=== PATIENT | male | born 1960 ===

== ENCOUNTER → 2020-02-16 14:34 | Outpatient (BNVA) | payer OTHER, SELFPAY | PROVIDERS: Visit Provider Nurse Practitioner Family | DX: Z01.818 Encounter for other preprocedural examination (principal); R19.7 Diarrhea, unspecified | CPT/HCPCS: 99202 ==

== ENCOUNTER → 2020-03-15 10:26 | Outpatient (BNVA) | payer OTHER, SELFPAY | PROVIDERS: Visit Provider Nurse Practitioner Family | DX: Z76.89 Persons encountering health services in other specified circumstances (principal) ==

== ENCOUNTER 2020-03-29 08:46 | Outpatient (REF) | payer OTHER, SELFPAY ==
[2020-03-29 09:50] LABS: MANUAL DIFF FLAG NO
[2020-03-29 10:23] LABS: Basophils Percent Auto 0.7 % (0-2); Eosinophils Absolute Auto 0.2 X10*3/uL (0.0-0.4); Eosinophils Percent Auto 3.5 % (0-4); Hematocrit 40.8 % (42-52); Hemoglobin 14.4 g/dl (14.0-18.0); Imm Gran Abs Auto 0.01 X10*3/uL (0.00-0.03); Imm Gran Pct Auto 0.2 % (0.0-0.4); Lymphocytes Absolute Auto 2.4 X10*3/uL (1.2-4.9); Lymphocytes Percent Auto 40.2 % (20-40); Mean Corpuscular HGB Conc 35.3 g/dl (31.0-36.0); Mean Corpuscular Volume 90.7 fL (80-98); Mean Platelet Volume 10.9 fL (9.4-12.4); Monocytes Absolute Auto 0.5 X10*3/uL (0.1-1.2); Monocytes Percent Auto 7.7 % (2-11); Neutrophils Absolute Auto 2.9 X10*3/uL (2.0-8.3); Neutrophils Percent Auto 47.7 % (45-73); Platelet Count 160 X10*3/uL (160-400); Red Cell Distribution Width 11.7 % (11.0-16.0)
[2020-03-29 11:01] LABS: Alanine Aminotransferase 27 U/L (0-40); Albumin Level 4.1 g/dL (3.5-5.0); Alkaline Phosphatase 45 U/L (39-117); Anion Gap 14 (12-20); Aspartate Amino Transferase 21 U/L (5-37); Bilirubin Direct 0.4 mg/dL (0.0-0.5); Bilirubin Total 0.7 mg/dL (0.0-1.0); Blood Urea Nitrogen 22 mg/dL (9-16); Calcium 8.8 mg/dL (8.4-10.2); Carbon Dioxide 24 mmol/L (22-29); Chloride 104 mmol/L (96-108); Cholesterol 98 mg/dL; Estimated Glomerular Filt Rate > 60; Glucose Random 124 mg/dL (60-115); HDL Cholesterol 45 mg/dL; LDL Cholesterol Calculated 38 mg/dl; Potassium 4.2 mmol/l (3.3-5.1); Sodium 138 mmol/L (135-145); Total Protein 6.6 g/dL (6.5-8.0); Triglycerides 75 mg/dL
[2020-03-29 11:31] LABS: Creatinine Urine 106.47 mg/dL
[2020-03-29 11:38] LABS: Estimated Average Glucose 209 mg/dL; Hemoglobin A1c % 8.9 %
== END 2020-03-29 08:47 | disposition home or self-care (01) ==
LOC: HO.LAB 08:46
PROVIDERS: Visit Provider Pediatrics
DX: L11.9 Acantholytic disorder, unspecified (principal); I10 Essential (primary) hypertension; K21.9 Gastro-esophageal reflux disease without esophagitis
CPT/HCPCS: 36415; 80053; 80061; 80076; 82043; 82248; 82550; 83036; 85025

== ENCOUNTER → 2020-04-17 14:14 | Outpatient (BNVA) | payer OTHER, SELFPAY | PROVIDERS: PCP Pediatrics; Visit Provider Nurse Practitioner Family | DX: Z13.89 Encounter for screening for other disorder (principal) | CPT/HCPCS: 99212 ==

== ENCOUNTER 2020-05-02 08:14 | Day surgery (SDC) | payer OTHER, SELFPAY ==
--- NOTE | 2020-05-01 08:26 | P.CONAN_ITS ---
Documented by User: Meera Arrington 05/01/20 08:27 HPI - Anesthesia Eval Consult details Narrative: 60yo M for Colonoscopy PMFSH Past Medical History Medical History Diabetes mellitus HTN (hypertension) Hypercholesteremia Family History Family History Father Family history of high blood pressure Mother History of high blood pressure Surgical History Surgical History History of colonoscopy Social History Social History Alcohol intake: current Alcohol intake frequency: does not drink Smoking Status: Never smoker Use of substances other than those prescribed or required for medical reasons: No Advance Directives: No Advance Directives Information Provided: Yes Meds Allergies Allergy/AdvReac Type Severity Reaction Status Date / Time No Known Allergies Allergy Verified 04/27/20 12:57 Home Medications Medication Instructions Recorded Confirmed Type atorvastatin 80 mg tablet 80 mg PO DAILY 02/16/20 04/27/20 History glyburide 5 mg tablet 5 mg PO DAILY 02/16/20 04/27/20 History lisinopril 10 mg tablet 10 mg PO DAILY 02/16/20 04/27/20 History metformin 1,000 mg tablet 1,000 mg PO BID 02/16/20 04/27/20 History Exam Exam Date and Time: May 01, 2020825 Assessment and Plan Assessment Anesthesia Assessment: Chart Reviewed Documented by User: Luther Morrissey 05/02/20 08:50 [facility] Past Medical History Medical History Diabetes mellitus HTN (hypertension) Hypercholesteremia Family History Family History Father Family history of high blood pressure Mother History of high blood pressure Surgical History Surgical History History of colonoscopy Social History Social History Alcohol intake: current Alcohol intake frequency: does not drink Smoking Status: Never smoker Use of substances other than those prescribed or required for medical reasons: No Advance Directives: No Advance Directives Information Provided: Yes Meds Allergies Allergy/AdvReac Type Severity Reaction Status Date / Time No Known Allergies Allergy Verified 04/27/20 12:57 Home Medications Medication Instructions Recorded Confirmed Type atorvastatin 80 mg tablet 80 mg PO DAILY 02/16/20 04/27/20 History glyburide 5 mg tablet 5 mg PO DAILY 02/16/20 04/27/20 History lisinopril 10 mg tablet 10 mg PO DAILY 02/16/20 04/27/20 History metformin 1,000 mg tablet 1,000 mg PO BID 02/16/20 04/27/20 History Exam Airway Mallampati Class: II TM Dist: >3cm Neck ROM: Full Loose/Missing/Broken Teeth: No Heart: [id number] Lungs: cta b/l Assessment and Plan Assessment Anesthesia Assessment: Anesthesia Plan Discussed and Chart Reviewed Final Anesthetic Review NPO: Yes ASA Class: II Final Preanesthetic Review: No Changes in Pt Med Stat, Meds/Allgs Chart Reviewed, Consent Obtained/Reviewed and Anes Risks/Benef Reviewed Patient Risk: Low Procedure Risk: Low Assessment/Block/Sedation in SS: Assess/Block/Sedation-SS Anesthetic Plan Anesthetic Plan: MAC: and Agree w/ Assess. and Plan Disposition: Standard PACU
--- NOTE | 2020-05-02 08:19 | P.HPSUR_ITS ---
Pre-Procedural Eval Section B Chief Complaint: Screening Relevant Family History (Specify if Yes): No Relevant Social History: None Present Medications: see Short Stay Collaborative assessment Medical History: Significant History (Diabetes mellitus HTN (hypertension) Hypercholesteremia) History of Previous Operations: Relevant previous surgery/procedure and date(s) (prio colonoscopy) Allergies: Allergies Allergy/AdvReac Type Severity Reaction Status Date / Time No Known Allergies Allergy Verified 04/27/20 12:57 Review of Systems Sugical H&P ROS: Negative: Constitution, Cardiovascular, Respiratory, Neurological, Psychiatric, Hem-Onc, Allergic/Immunologic, Gastrointestinal, [place] tourinary, Musculoskeletal, Integumentary, Endocrine and Eyes/Ears/Nose/Throat Exam Surgical H&P Exam: Normal: HEENT, Normal: Heart, Normal: Lungs, Normal: Extremities, Normal: Abdomen, Normal: Skin and Normal: Neurological Plan Diagnosis/Plan: Unchanged I have reviewed the history and physical and performed a pertinent physical examination on my patient. No changes have occurred unless specified.
[2020-05-02 08:32] VITALS: BMI 25.3
[2020-05-02 08:33] LABS: Glucose, Whole Blood 132 mg/dL (60-115)
[2020-05-02 08:34] VITALS: BP 125/67; PULSE 66; RESP 16; TEMP 36.2; O2SAT 98
[2020-05-02] MEDS: Lactated Ringers 1,000 ML 100 ML IVCONT (08:45)
--- NOTE | 2020-05-02 09:24 | P.BOP_ITS ---
Brief Operative Note Date of Service: 05/02/20 Pre-op diagnosis: screening, hx of diarrhea Post-op diagnosis: same Procedure: Operative Information Procedure Description: Colonoscopy COLONOSCOPY Instrument: Olympus variable stiffness pediatric scope 190L Colonoscopy Monitoring: Vital signs and clinical assessment, continuous EKG monitoring, Pulse oximetry, Carbon Dioxide monitoring and blood pressure monitoring were done throughout the procedure. Colon withdrawal time was 10 minutes. Procedure: The patient was placed in the left lateral decubitis position and pre-procedure medications were administered. After a digital rectal examination of the ano-rectum, the video colonoscope was inserted into the rectum and advanced through the colon to the cecum/TI. The colonoscope was slowly withdrawn in a retrograde panoramic fashion and the colon mucosa was carefully examined including a retroflexed view of the rectum. Findings and interventions are described below. Procedure Difficulty:easy Findings: Random colon bx taken due to hx of diarrhea Terminal Ileum-normal, bx taken Cecum:normal Ascending Colon: normal Transverse Colon -normal Descending Colon:normal Sigmoid Colon: normal Rectum: Retroflexion with small internal hemorrhoids, grade I Anorectum - normal Colon preparation: [place] Bowel Preparation Scale Right colon; 0 Transverse colon: 1 Left colon; 1 (0 = Unprepared colon segment with mucosa not seen due to solid stool that cannot be cleared. 1 = Portion of mucosa of the colon segment seen, but other areas of the colon segment not well seen due to staining, residual stool and/or opaque liquid. 2 = Minor amount of residual staining, small fragments of stool and/or opaque liquid, but mucosa of colon segment seen well. 3 = Entire mucosa of colon segment seen well with no residual staining, small fragments of stool or opaque liquid) Impression and Post Procedure Diagnosis: internal hemorrhoids Plan: High fiber diet leaflet Avoid straining at stool, epsom salts and sitz bath prn, anusol supps or cream prn Repeat Colonoscopy in 6 months due to poor prep await path results Above findings were reviewed with the patient and relevant handouts were provided if indicated. Surgeon: Paul Joseph MD Anesthesia: MAC Estimated blood loss (mL): 0 Condition: stable Disposition: PACU
[2020-05-02 09:25] VITALS: BP 104/62; PULSE 65; RESP 16; TEMP 36.4; O2SAT 96
[2020-05-02 09:40] VITALS: BP 119/72; PULSE 65; RESP 16; TEMP 36.4; O2SAT 98
--- NOTE | 2020-05-02 10:03 | HO.POSTANES ---
Post Anesthesia Evaluation Post Anesthesia Evaluation Vital Signs: Vital Signs Temp Pulse Resp BP Pulse Ox 05/02/20 09:40 97.6 F 65 16 119/72 98 05/02/20 09:25 97.6 F 65 16 104/62 96 05/02/20 08:34 97.2 F 66 16 125/67 98 Anesthesia: Monitored Mental Status: Awake Pain Control: Satisfactory Nausea/Vomiting: None Hydration: Adequate Anesthesia-Related Issues: No Anes. Related Issues
--- NOTE | 2020-05-04 08:52 | W.PM.OPN ---
Operative Note Operative Note Date of Service: 05/02/20 Narrative: Date of Service: 05/02/20 Pre-op diagnosis: screening, hx of diarrhea Post-op diagnosis: same Procedure: Operative Information Procedure Description: Colonoscopy COLONOSCOPY Instrument: Olympus variable stiffness pediatric scope 190L Colonoscopy Monitoring: Vital signs and clinical assessment, continuous EKG monitoring, Pulse oximetry, Carbon Dioxide monitoring and blood pressure monitoring were done throughout the procedure. Colon withdrawal time was 10 minutes. Procedure: The patient was placed in the left lateral decubitis position and pre-procedure medications were administered. After a digital rectal examination of the ano-rectum, the video colonoscope was inserted into the rectum and advanced through the colon to the cecum/TI. The colonoscope was slowly withdrawn in a retrograde panoramic fashion and the colon mucosa was carefully examined including a retroflexed view of the rectum. Findings and interventions are described below. Procedure Difficulty:easy Findings: Random colon bx taken due to hx of diarrhea Terminal Ileum-normal, bx taken Cecum:normal Ascending Colon: normal Transverse Colon -normal Descending Colon:normal Sigmoid Colon: normal Rectum: Retroflexion with small internal hemorrhoids, grade I Anorectum - normal Colon preparation: [place] Bowel Preparation Scale Right colon; 0 Transverse colon: 1 Left colon; 1 (0 = Unprepared colon segment with mucosa not seen due to solid stool that cannot be cleared. 1 = Portion of mucosa of the colon segment seen, but other areas of the colon segment not well seen due to staining, residual stool and/or opaque liquid. 2 = Minor amount of residual staining, small fragments of stool and/or opaque liquid, but mucosa of colon segment seen well. 3 = Entire mucosa of colon segment seen well with no residual staining, small fragments of stool or opaque liquid) Impression and Post Procedure Diagnosis: internal hemorrhoids Plan: High fiber diet leaflet Avoid straining at stool, epsom salts and sitz bath prn, anusol supps or cream prn Repeat Colonoscopy in 6 months due to poor prep await path results
== END 2020-05-02 10:10 | disposition home or self-care (01) ==
PROVIDERS: PCP Pediatrics; Visit Provider Internal Medicine Gastroenterology
PROC: 0DJD8ZZ Inspection of Lower Intestinal Tract, Via Natural or Artificial Opening Endoscopic (ICD-10-PCS; CPT 45378; principal; 2020-05-02 09:30)
DX: Z12.11 Encounter for screening for malignant neoplasm of colon (principal); K64.0 First degree hemorrhoids; R19.7 Diarrhea, unspecified; K21.9 Gastro-esophageal reflux disease without esophagitis; I10 Essential (primary) hypertension; E11.9 Type 2 diabetes mellitus without complications; Z79.84 Long term (current) use of oral hypoglycemic drugs; Z79.899 Other long term (current) drug therapy
CPT/HCPCS: 45380; 82947; 88305

== ENCOUNTER → 2020-06-30 08:36 | Outpatient (BNVA) | payer OTHER, SELFPAY | PROVIDERS: PCP Pediatrics; Visit Provider Urology | DX: N40.1 Benign prostatic hyperplasia with lower urinary tract symptoms (principal); E11.69 Type 2 diabetes mellitus with other specified complication; E13.8 Other specified diabetes mellitus with unspecified complications; N52.1 Erectile dysfunction due to diseases classified elsewhere; N47.1 Phimosis | CPT/HCPCS: 99202 ==

== ENCOUNTER 2020-08-14 06:04 | Day surgery (SDC) | payer OTHER, SELFPAY ==
[2020-08-08 15:20] VITALS: BMI 25.0
[2020-08-14] VITALS (7 sets, daily range): BP systolic 121–156; BP diastolic 67–84; PULSE 69–77; RESP 16–20; TEMP 36.4–36.7; O2SAT 98–100
[2020-08-14] MEDS: levoFLOXacin 500 MG TABLET PO (06:26)
[2020-08-14 06:44] LABS: Glucose, Whole Blood 193 mg/dL (60-115)
--- NOTE | 2020-08-14 07:17 | HO.ANESPROP2 ---
[facility] Active Problems Active Problems: All Active Problems (Updated 06/30/20 @ 09:05 by Niko Pillai MD) Phimosis (Acute) BPH w urinary obs/LUTS (Acute) Erectile dysfunction associated with type 2 diabetes mellitus (Acute) Past Medical History Medical History Diabetes mellitus HTN (hypertension) Hypercholesteremia Family History Family History Father Family history of high blood pressure Mother History of high blood pressure Surgical History Surgical History History of colonoscopy Social History Social History Alcohol intake: current Alcohol intake frequency: does not drink Smoking Status: Never smoker Advance Directives: No Advance Directives Information Provided: No Advance Directives on File: No Meds Allergies Allergy/AdvReac Type Severity Reaction Status Date / Time No Known Allergies Allergy Verified 04/27/20 12:57 Home Medications Medication Instructions Recorded Confirmed Last Taken Type atorvastatin 80 mg tablet 80 mg PO DAILY 02/16/20 08/08/20 Unknown History glyburide 5 mg tablet 5 mg PO DAILY 02/16/20 08/08/20 08/14/20 History lisinopril 10 mg tablet 10 mg PO DAILY 02/16/20 08/08/20 08/14/20 History metformin 1,000 mg tablet 1,000 mg PO BID 02/16/20 08/08/20 08/14/20 History Exam Exam Date and Time: August 14, 2020 0717 Height,Weight and Vital Signs: Height 5 ft 7 in Weight 72.575 kg Last Vital Signs Temp 98.1 F 08/14/20 06:10 Pulse 77 08/14/20 06:10 Resp 18 08/14/20 06:10 BP 146/70 H 08/14/20 06:10 Pulse Ox 99 08/14/20 06:10 Pertinent Lab Results Pertinent Lab Results: Laboratory Tests 08/14/20 06:13 POC Glucose 193 H Airway Mallampati Class: II TM Dist: >3cm Neck ROM: Full Assessment and Plan Assessment Anesthesia Assessment: Anesthesia Plan Discussed and Chart Reviewed Final Anesthetic Review NPO: Yes ASA Class: II Final Preanesthetic Review: No Changes in Pt Med Stat, Meds/Allgs Chart Reviewed, Consent Obtained/Reviewed and Anes Risks/Benef Reviewed Patient Risk: Low Procedure Risk: Low Assessment/Block/Sedation in SS: Assess/Block/Sedation-SS Anesthetic Plan Anesthetic Plan: GA Disposition: Standard PACU
[2020-08-14] MEDS: Lactated Ringers 1,000 ML 20 ML IVCONT (07:26)
--- NOTE | 2020-08-14 07:29 | MHC.SHP ---
Pre-Procedural Eval Section A The patient is an INPATIENT: No Changes since office visit: No Cold of Flu in the past 2 weeks, No New Medical Problems, No Changes in Medication and No Patient answered all questions The History & Physical has been completed within 30 days and I have reviewed it.: Yes Section B Chief Complaint: Phimosis Allergies: Allergies Allergy/AdvReac Type Severity Reaction Status Date / Time No Known Allergies Allergy Verified 04/27/20 12:57 Plan Diagnosis/Plan: Unchanged (circumcision) I have reviewed the history and physical and performed a pertinent physical examination on my patient. No changes have occurred unless specified.
--- NOTE | 2020-08-14 08:14 | P.OP_ITS ---
Operative Note Operative Note Date of Service: 08/14/20 Narrative: PreOperative Diagnosis: Balanitis and phimosis Post Operative Diagnosis: Balanitis and phimosis Procedure: Circumcision Surgeon: Dr Niko Pillai Anesthesia: General Indications for procedure: Recurring balanitis in inability to withdrawal foreskin of penile glans. Risks and benefits including bleeding, scarring, need for revision surgery been discussed. Procedure: After informed consent was verified the patient was brought to the operating room and placed in a supine position. Anesthesia was administered per protocol. The patient was prepped and draped sterile fashion. Safety pause time-out was performed. Antibiotics have been given. The penis was examined and proximal incision marked that lay just proximal to the resting position of the penile sulcus. This was followed around the circumference of the penis. A penile ring block was performed using 1% lidocai ne with no epinephrine. Approximately 8 cc. The proximal incision was developed with sharp blade running circumferentially around the penis. The skin was to give a 1 cm separation between the foreskin in the remaining penile shaft skin. The foreskin was withdrawn and the penile glans exposed. A a distal incision was made approximately 5 mm proximal to the penile sulcus. At the area of the frenulum care was taken to empty the penile frenulum intact. Using clamps the dorsal skin was elevated. Using Metzenbaum scissors the avascular plane was entered and proximal and distal incision were joined. The bridging skin was elevated and clamped. It was then divided using Bovie. The sleeve of tissue was then removed circumferentially around the penis using cautery in order to minimize bleeding. The shaft was then examined in any bleeding areas were controlled. More local anesthetic was injected into the plane beneath avascular plane to help with postprocedure pain management. The skin edges after they were appropriately examined low reapposed. A 3-0 chromic suture was placed at 12:00 o'clock and 06:00 o'clock positions. Interrupted 3-0 was then placed the 09:00 o'clock and 3 o'clock position. Each quadrant was then filled with 3 sutures using 4-0 chromic. At the completion of the procedure there was adequate hemostasis. The incision was washed and dried. Antibiotic cream was applied to the incision. A Jannet wrap was applied followed by a Coban dressing. Xeroform gauze had been used to cover antibiotic ointment. He tolerated the procedure well and was extubated in the room and transferred in stable condition to the recovery area. Pathology: Foreskin Drains: none
--- NOTE | 2020-08-14 11:52 | PM.OP ---
Brief Operative Note Date of Service: 08/14/20 Pre-op diagnosis: Phimosis Post-op diagnosis: same Procedure: Circumcision Surgeon: Niko Pillai MD Estimated blood loss (mL): 0 Pathology: other Condition: stable Disposition: same day
== END 2020-08-14 09:41 | disposition home or self-care (01) ==
PROVIDERS: PCP Pediatrics; Visit Provider Urology
PROC: (CPT 54161; principal; 2020-08-14 07:30)
DX: N47.1 Phimosis (principal); N48.1 Balanitis; I10 Essential (primary) hypertension; E11.9 Type 2 diabetes mellitus without complications; Z79.84 Long term (current) use of oral hypoglycemic drugs; Z79.899 Other long term (current) drug therapy
CPT/HCPCS: 54161; 82947; 88304; J1100; J2250; J2405; J3010

== ENCOUNTER → 2020-09-19 15:21 | Outpatient (BNVA) | payer OTHER, SELFPAY | PROVIDERS: PCP Pediatrics; Visit Provider Urology | DX: Z13.89 Encounter for screening for other disorder (principal) | CPT/HCPCS: 99212 ==

== ENCOUNTER 2020-12-19 09:19 | Outpatient (REF) | payer OTHER, SELFPAY ==
[2020-12-19 11:38] LABS: TSH reflex Free T4 0.54 uIU/mL (0.32-4.0)
== END 2020-12-19 09:20 | disposition home or self-care (01) ==
LOC: HO.LAB 09:19
PROVIDERS: PCP Pediatrics; Referring Provider Pediatrics; Visit Provider Nurse Practitioner Family
DX: K21.9 Gastro-esophageal reflux disease without esophagitis (principal); K59.01 Slow transit constipation
CPT/HCPCS: 36415; 84443; 87338; 99212

== ENCOUNTER 2021-02-19 13:03 | Outpatient (REF) | payer OTHER, SELFPAY ==
--- NOTE | ~2021-02-19 | XR_ITS ---
EXAMINATION: XR SHOULDER, RIGHT CLINICAL INFORMATION: Right shoulder pain. COMPARISON: None TECHNIQUE: AP external rotation, Grashey, scapular Y, and axillary views of the right shoulder. FINDINGS: Moderate acromioclavicular marginal osteophytes. Lateral subacromial spurring. Mild glenohumeral joint space narrowing with small marginal osteophytes. No osseous erosion. No fracture or dislocation. XR/XR shoulder RT min 2V IMPRESSION: Moderate acromioclavicular osteoarthritis with lateral subacromial spurring. More mild glenohumeral osteoarthritis.
== END 2021-02-19 13:04 | disposition home or self-care (01) ==
LOC: HO.XRAY 13:03
PROVIDERS: Absent Provider Pediatrics; PCP Pediatrics; Visit Provider Emergency Medicine
DX: S49.91XD Unspecified injury of right shoulder and upper arm, subsequent encounter (principal); K59.01 Slow transit constipation; K21.9 Gastro-esophageal reflux disease without esophagitis
CPT/HCPCS: 73030; 99212

== ENCOUNTER → 2021-03-05 12:49 | Outpatient (BNVA) | payer OTHER, SELFPAY | PROVIDERS: PCP Pediatrics; Visit Provider Orthopaedic Surgery | DX: M24.811 Other specific joint derangements of right shoulder, not elsewhere classified (principal); E11.9 Type 2 diabetes mellitus without complications | CPT/HCPCS: 20610; 99202; J1100 ==

== ENCOUNTER 2021-04-04 17:36 | Emergency (ER) | payer OTHER, SELFPAY ==
--- NOTE | ~2021-04-04 | XR_ITS ---
Indication: Fall, pain EXAMINATION: Right shoulder, right hip, sacrum. The single view of the pelvis does not demonstrate evidence for a fracture. 2 detail views of the right hip does not show evidence for an acute fracture or dislocation. 3 views of the sacrum does not show convincing evidence for acute fracture. 3 views of the right shoulder demonstrate degenerative change. There is no acute fracture or dislocation seen. XR/XR shoulder RT min 2V IMPRESSION: Multiple studies. No acute finding.
--- NOTE | ~2021-04-04 | XR_ITS ---
Indication: Fall, pain EXAMINATION: Right shoulder, right hip, sacrum. The single view of the pelvis does not demonstrate evidence for a fracture. 2 detail views of the right hip does not show evidence for an acute fracture or dislocation. 3 views of the sacrum does not show convincing evidence for acute fracture. 3 views of the right shoulder demonstrate degenerative change. There is no acute fracture or dislocation seen. XR/XR sacrum coccyx min 2V IMPRESSION: Multiple studies. No acute finding.
--- NOTE | ~2021-04-04 | XR_ITS ---
Indication: Fall, pain EXAMINATION: Right shoulder, right hip, sacrum. The single view of the pelvis does not demonstrate evidence for a fracture. 2 detail views of the right hip does not show evidence for an acute fracture or dislocation. 3 views of the sacrum does not show convincing evidence for acute fracture. 3 views of the right shoulder demonstrate degenerative change. There is no acute fracture or dislocation seen. XR/XR hip RT w PEL1V IMPRESSION: Multiple studies. No acute finding.
[2021-04-04 18:34] VITALS: BP 124/76; PULSE 83; RESP 18; TEMP 36.6; O2SAT 98; BMI 26.3
--- NOTE | 2021-04-04 22:42 | ED.BACK ---
HPI - Back Pain/Injury General Chief Complaint: Back Pain/Injury Stated Complaint: Fall/Hip pain Time Seen by Provider: 04/04/21 18:37 Source: patient Mode of arrival: ambulatory Limitations: no limitations History of Present Illness HPI Narrative: 61 y/o male with history of diabetes, BPH who presents to the ER with right buttock, right lower back and right shoulder pain after he slipped and fell down some wooden stairs at home when he was walking down to his basement earlier today. He did not hit his head or lose consciousness. He is not on any blood thinners. He had difficulty getting up when he got to the bottom of the stairs. He thinks he fell about 5 or 6 stairs in most of the weight was on his right buttock. Pain is worse with movement and palpation. He is not taking any medication for the pain. He denies any weakness, numbness, tingling. Abdominal pain or chest pain. He he reports the pain is lower back and buttock is making to walk. MD elicited complaint: back pain, back injury and fall Pertinent past history: recent trauma Onset (ago): hour(s) Timing: constant Severity: severe Pain scale (0-10): 8 Similar Symptoms Previously: No Quality: aching and spasming Location: right lower back Radiation: buttocks Exacerbating factors: movement and walking Relieving factors: immobilization and supine Context: fall Associated symptoms: difficulty walking Work related injury: No Related Data Home Medications Medication Instructions Recorded Confirmed atorvastatin 80 mg tablet 80 mg PO DAILY 02/16/20 08/08/20 glyburide 5 mg tablet 5 mg PO DAILY 02/16/20 08/08/20 lisinopril 10 mg tablet 10 mg PO DAILY 02/16/20 08/08/20 dulaglutide 1.5 mg/0.5 mL mg SUBCUT QWEEK 12/19/20 [facility] sitagliptin 50 mg tablet (Januvia) 50 mg PO DAILY 12/19/20 cholecalciferol (vitamin D3) 50 50 mcg PO DAILY 03/05/21 mcg (2,000 unit) capsule diclofenac sodium 1 % topical gel g TOPICAL 03/05/21 Previous Rx's Medication Instructions Recorded tadalafil 5 mg tablet 5 mg PO DAILY PRN 90 Days #90 tab 06/30/20 sulfamethoxazole 400 1 tab PO DAILY 10 Days #10 tab 08/14/20 mg-trimethoprim 80 mg tablet (Bactrim) tramadol 50 mg tablet 50 mg PO Q6H PRN #14 tab 08/14/20 pantoprazole 40 mg tablet,delayed 40 mg PO BID #30 tab 12/19/20 release bismuth subsalicylate 262 mg 2 tab PO QID 14 Days #112 tab 12/20/20 chewable tablet metronidazole 500 mg tablet 1,000 mg PO BID #56 tab 12/20/20 tetracycline 500 mg capsule 1,000 mg PO Q12H #56 cap 12/20/20 sennosides 8.6 mg tablet (Natural 8.6 mg PO DAILY #30 tab 02/19/21 Senna Laxative) cyclobenzaprine 5 mg tablet 5 mg PO TID PRN #10 tab 04/04/21 ibuprofen 600 mg tablet 600 mg PO Q8H PRN #20 tab 04/04/21 lidocaine 5 % topical patch 1 patch TOPICAL DAILY #15 ea 04/04/21 oxycodone 5 mg tablet 5 mg PO Q8H PRN #6 tab 04/04/21 Allergies Allergy/AdvReac Type Severity Reaction Status Date / Time No Known Allergies Allergy Verified 03/05/21 12:54 Review of Systems Review of Systems: Constitutional: No Fever, No Chills ENT/Mouth: No sore throat, No Rhinorrhea, No Swallowing Difficulty Cardiovascular: No Chest Pain, No SOB, No Orthopnea, No Edema Respiratory: No Cough, No Sputum, No Wheezing, No dyspnea Gastrointestinal: No Nausea, No Vomiting, No Diarrhea, No abdominal Pain Genitourinary: No Hematuria Musculoskeletal: + joint pain, + Myalgias Skin: No Skin Lesions, No rash Neuro: No Weakness, No Numbness, No Dizziness, No Headache Heme/Lymph: No Bruising, No Lymphadenopathy PMFSH Past Medical History Medical History Diabetes mellitus HTN (hypertension) Hypercholesteremia Surgical History History of colonoscopy Family History Family History Father Family history of high blood pressure Mother History of high blood pressure Social History Social History Alcohol intake: current Alcohol intake frequency: does not drink Advance Directives: No Advance Directives Information Provided: No Physical Exam Vital Signs: Vital Signs: Last Vital Signs Temp 97.9 F 04/04/21 18:34 Pulse 83 04/04/21 18:34 Resp 18 04/04/21 18:34 BP 124/76 04/04/21 18:34 Pulse Ox 98 04/04/21 18:34 BMI result Body Mass Index 26.3 Appearance: Alert. Oriented X3. No acute distress. Eyes: Pupils equal, round and reactive to light. ENT: Pharynx normal. Neck: Normal inspection. Neck supple. CVS: Normal heart rate and rhythm. Pulses normal. Respiratory: No respiratory distress. Breath sounds normal. Abdomen: Soft and nontender. +BS x4 Skin: Skin warm and dry. Normal skin color. Normal skin turgor. No rashes. Extremities: No lower extremity edema. Neuro: Oriented X 3. No motor deficit. No sensory deficit. Course Course Course Narrative: 61-year-old male presenting with right-sided buttock and lower back pain as well as right shoulder pain after he slipped and fell some down wooden stairs in his home earlier today. His XR's are negative for traumatic injury. He has no ecchymosis on his back or flanks. He has no hematuria or abdominal pain. He ambulates with a slow but steady gait. He appears sore. He has full range of motion of his right shoulder in reports chronic issues with his right shoulder. His main pain is in his right buttock. This most likely due to contusion possible bone bruise. Will treat with anti-inflammatories, muscle relaxants, Lidoderm and short course of p.r.n. oxycodone for severe pain. 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 Work note provided. Stable for [place] home with outpatient follow-up and supportive care. Critical Care Time Critical Care Time Critical Care Time: No Discharge Plan Discharge Clinical Impression: Fall down stairs Qualifiers: Encounter type: initial encounter Qualified Code(s): W10.8XXA - Fall (on) (from) other stairs and steps, initial encounter Contusion of lower back Qualifiers: Encounter type: initial encounter Qualified Code(s): S30.0XXA - Contusion of lower back and pelvis, initial encounter Patient Disposition: Home, Self-Care Instructions: Acute Low Back Pain (ED), Contusion in Adults (ED) Additional Instructions: Your x-rays today were normal. No broken bones. Rest. No strenuous activity. No bending, lifting or twisting. Use ice several times per day for 20 minutes at a time for the next 48 hours and then change to heat. Take medications as prescribed to help with pain and discomfort. Follow up with your Primary Care Doctor this week. If your pain worsens, if you develop new numbness, tingling, weakness, loss of function or incontinence call 911 or come back to the ER right away for evaluation. Prescriptions: New lidocaine 5 % adhesive patch,medicated 1 patch topical DAILY Qty: 15 RF: 0 ibuprofen 600 mg tablet 600 mg PO Q8H PRN (Reason: pain) Qty: 20 RF: 0 cyclobenzaprine 5 mg tablet 5 mg PO TID PRN (Reason: muscle spasm) Qty: 10 RF: 0 oxycodone 5 mg tablet 5 mg PO Q8H PRN (Reason: pain) Qty: 6 RF: 0 No Action bismuth subsalicylate 262 mg tablet,chewable 2 tab PO QID 14 Days Qty: 112 RF: 0 metronidazole 500 mg tablet 1,000 mg PO BID Qty: 56 RF: 0 tetracycline 500 mg capsule 1,000 mg PO Q12H Qty: 56 RF: 0 tramadol 50 mg tablet 50 mg PO Q6H PRN (Reason: pain (scale score 4-6)) Qty: 14 RF: 0 sulfamethoxazole-trimethoprim [Bactrim] 400-80 mg tablet 1 tab PO DAILY 10 Days Qty: 10 RF: 0 tadalafil 5 mg tablet 5 mg PO DAILY PRN (Reason: sexual activity) 90 Days Qty: 90 RF: 0 lisinopril 10 mg tablet 10 mg PO DAILY RF: 0 glyburide 5 mg tablet 5 mg PO DAILY RF: 0 atorvastatin 80 mg tablet 80 mg PO DAILY RF: 0 Trulicity 1.5 mg/0.5 mL pen injector subcut QWEEK RF: 0 Januvia 50 mg tablet 50 mg PO DAILY RF: 0 pantoprazole 40 mg tablet,delayed release (DR/EC) 40 mg PO BID Qty: 30 RF: 4 sennosides [Natural Senna Laxative] 8.6 mg tablet 8.6 mg PO DAILY Qty: 30 RF: 2 diclofenac sodium 1 % gel topical RF: 0 cholecalciferol (vitamin D3) 50 mcg (2,000 unit) capsule 50 mcg PO DAILY RF: 0 Referrals: Melisa Eisenberg MD [Primary Care Provider] - 2 days (s/p fall) Stand Alone Forms: Work/School Release Interventions: ED Discharge Assessment Last Done: 04/04/21 23:25 Discharge Date/Time: 04/04/21 23:26
[2021-04-04] MEDS: Ketorolac Tromethamine 30 MG/ML VIAL IM (23:19)
[2021-04-04] MEDS: Lidocaine 4 % Patch ADH..PATCH 1 PATCH TRANSDERMA (23:19)
[2021-04-04] MEDS: Acetaminophen 325 MG TABLET 975 MG PO (23:19)
== END 2021-04-04 23:26 | disposition home or self-care (01) ==
PROVIDERS: Emergency Provider Emergency Medicine; PCP Pediatrics
DX: S30.0XXA Contusion of lower back and pelvis, initial encounter (principal); M25.511 Pain in right shoulder; M25.551 Pain in right hip; E11.9 Type 2 diabetes mellitus without complications; I10 Essential (primary) hypertension; W10.9XXA Fall (on) (from) unspecified stairs and steps, initial encounter; Y93.9 Activity, unspecified; Y92.9 Unspecified place or not applicable; Y99.9 Unspecified external cause status
CPT/HCPCS: 72220; 73030; 73502; 96372; 99284; J1885

== ENCOUNTER → 2021-04-16 10:09 | Outpatient (BNVA) | payer OTHER, SELFPAY | PROVIDERS: PCP Pediatrics; Visit Provider Orthopaedic Surgery | DX: M67.919 Unspecified disorder of synovium and tendon, unspecified shoulder (principal); M24.811 Other specific joint derangements of right shoulder, not elsewhere classified | CPT/HCPCS: 99212 ==

== ENCOUNTER 2021-05-21 16:39 | Outpatient (REF) | payer OTHER, SELFPAY ==
--- NOTE | ~2021-05-21 | MR_ITS ---
EXAMINATION: MR SHOULDER WITHOUT CONTRAST, RIGHT CLINICAL INFORMATION: Right shoulder pain. COMPARISON: Most recent right shoulder radiographs dated 04/04/2021. TECHNIQUE: MRI of the shoulder without contrast was performed on a high-field scanner. FINDINGS: ROTATOR CUFF: Supraspinatus tendinosis with anterior full-thickness partial tearing measuring up to 2.1 x 1.7 cm (AP by ML). Mild to moderate infraspinatus tendinosis with mild fraying/partial tearing of the anterior tendon fibers. No muscle atrophy or fatty infiltration. BICEPS: Normal. CORACOACROMIAL ARCH: The undersurface of the acromion is curved with subacromial spurring. Moderate acromioclavicular osteoarthritis. LABRUM/CAPSULE: Fluid extending through the undersurface of the posterosuperior labrum, consistent with nondisplaced undersurface tearing. GLENOHUMERAL JOINT/MARROW: No acute osseous abnormality. Small joint effusion. MR/MR shoulder RT wo con IMPRESSION: 1. Supraspinatus tendinosis with anterior full-thickness partial tearing measuring 2.1 x 1.7 cm (AP by ML). Mild to moderate infraspinatus tendinosis with mild fraying/partial tearing of the anterior tendon fibers. 2. Moderate acromioclavicular osteoarthritis with subacromial spurring. 3. Nondisplaced undersurface tear of the posterosuperior labrum. 4. Small glenohumeral joint effusion.
== END 2021-05-21 16:40 | disposition home or self-care (01) ==
LOC: HO.MRI 16:39
PROVIDERS: Visit Provider Orthopaedic Surgery
DX: M67.919 Unspecified disorder of synovium and tendon, unspecified shoulder (principal)
CPT/HCPCS: 73221

== ENCOUNTER 2021-06-01 14:00 | Outpatient (RCR) | payer OTHER, SELFPAY ==
--- NOTE | 2021-05-02 15:46 | MHC.PT.EP ---
[facility] [place] Office [place] Office [place] Office [address] Elicia Belcher [address] [phone] F: [phone] F: [phone] F: [phone] F: [phone] Physical Therapy Plan of Care Date of Evaluation: Date of Surgery: n/a Diagnosis: disorder of synovium and tendon of shoulder Assessment: Patient is a 61 year old male presenting to PT with complaints of pain in his R shoulder. Pt reports onset of pain began February 2021 due to reaching to grab handle in truck when slipping. He presents today with impairments in pain, R shoulder ROM, R shoulder strength, and posture. 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 Pt expresses fpc goal of reducing pain, and is motivated to work towards this in PT. Clinical presentation today is most consistent with signs and sx associated with possible RC involvement and pt will benefit from skilled PT to address the following problems and impairments noted upon evaluation: pain, R shoulder ROM, R shoulder strength, and posture. These problems limit the patient with the following functional activities: reaching, lifting, ADLs, and sleeping. The prescribed treatment plan of care is medically necessary. Co-morbidities of DM, HTN were identified and taken into considerations of plan of care. Pt was educated on HEP, role of PT, prognosis, POC. Frequency and Duration: The patient will be seen 2 x week x 4 weeks Short Term Goals: Pt will demonstrate improved R shoulder AROM to equal B in 2 weeks. Pt will demonstrate improved R shoulder strength by 1/3 MMT in 2 weeks. Pt will demonstrate improved postural awareness by sitting with biomechanically correct posture without cues throughout session to improve overall postural function in 2 weeks. [employer] Goals: Pt will demonstrate improved SPADI score by 13 points in 4 weeks for improved UE functional mobility. Pt will demonstrate ability to sleep through the night with min to no pain in 4 weeks for improved QOL. Pt will demonstrate ability to reach and lift with min to no pain in 4 weeks for improved tolerance to ADLs. Treatment Plan: Modalities to reduce pain, spasms and effusion. Manual therapy to restore motion and function. Therapeutic exercise to improve strength and flexibility. Neuromuscular re-education for posture and balance. Therapeutic activities to return to functional activities of daily living. Electronically signed by: Laurie Tovar, PT, DPT, ATC Please sign and return to therapist. Thank you for your referral.
--- NOTE | 2021-06-15 15:22 | MHC.PT.DC ---
[facility] [place] Office [place] Office [place] Office [address] Elicia Belcher 140 [facility] [phone] F: [phone] F: [phone] F: [phone] F: [phone] Physical Therapy Discharge Report Diagnosis: disorder of synovium and tendon of shoulder Date of Surgery: n/a Date of Evaluation: 05/02/21 Date of Discharge: 06/15/21 Treatments to Date: 6 Cancellations to Date: 3 No Shows to Date: 0 Discharge Status: Physician Discontinued Tx Discharge Summary: Pt attended appt with ortho for follow up of MRI. Pt is scheduled for surgery based on MRI results and therefore skilled PT is no longer indicated at this time. Electronically signed by: Laurie Tovar, PT, DPT, ATC Please sign and return to therapist. Thank you for your referral.
== END 2021-06-15 15:23 | disposition home or self-care (01) ==
LOC: HO.PTCHIC 14:00
PROVIDERS: PCP Pediatrics; Visit Provider Orthopaedic Surgery
DX: M24.811 Other specific joint derangements of right shoulder, not elsewhere classified (principal); M67.919 Unspecified disorder of synovium and tendon, unspecified shoulder
CPT/HCPCS: 97110; 97161

== ENCOUNTER → 2021-06-07 10:49 | Outpatient (BNVA) | payer OTHER, SELFPAY | PROVIDERS: PCP Pediatrics; Visit Provider Orthopaedic Surgery | DX: M75.101 Unspecified rotator cuff tear or rupture of right shoulder, not specified as traumatic (principal) | CPT/HCPCS: 99212 ==

== ENCOUNTER → 2021-08-20 13:28 | Outpatient (BNVA) | payer OTHER, SELFPAY | PROVIDERS: PCP Pediatrics; Referring Provider Pediatrics; Visit Provider Nurse Practitioner Family | DX: K40.20 Bilateral inguinal hernia, without obstruction or gangrene, not specified as recurrent (principal); K21.9 Gastro-esophageal reflux disease without esophagitis; K59.01 Slow transit constipation; Z79.899 Other long term (current) drug therapy | CPT/HCPCS: 99212 ==

== ENCOUNTER → 2021-08-24 12:57 | Outpatient (BNVA) | payer OTHER, SELFPAY | PROVIDERS: PCP Pediatrics; Referring Provider Nurse Practitioner Family; Visit Provider Surgery | DX: K40.90 Unilateral inguinal hernia, without obstruction or gangrene, not specified as recurrent (principal); N47.1 Phimosis; N40.1 Benign prostatic hyperplasia with lower urinary tract symptoms; N13.8 Other obstructive and reflux uropathy; M24.811 Other specific joint derangements of right shoulder, not elsewhere classified; M75.101 Unspecified rotator cuff tear or rupture of right shoulder, not specified as traumatic; M67.919 Unspecified disorder of synovium and tendon, unspecified shoulder; E11.65 Type 2 diabetes mellitus with hyperglycemia; E11.9 Type 2 diabetes mellitus without complications | CPT/HCPCS: 99202 ==

== ENCOUNTER 2021-09-10 08:25 | Outpatient (REF) | payer OTHER, SELFPAY ==
[2021-09-11 11:19] LABS: H Pylori Breath Test Positive (Negative)
== END 2021-09-10 08:26 | disposition home or self-care (01) ==
LOC: CF 08:25
PROVIDERS: PCP Pediatrics; Referring Provider Pediatrics; Visit Provider Nurse Practitioner Family
DX: Z11.2 Encounter for screening for other bacterial diseases (principal)
CPT/HCPCS: 36415; 83013

== ENCOUNTER → 2022-01-04 13:18 | Outpatient (BNVA) | payer OTHER, SELFPAY | PROVIDERS: PCP Pediatrics; Visit Provider Nurse Practitioner Family | DX: K59.00 Constipation, unspecified (principal); K21.9 Gastro-esophageal reflux disease without esophagitis; K64.9 Unspecified hemorrhoids; L29.0 Pruritus ani; Z79.899 Other long term (current) drug therapy | CPT/HCPCS: 99212 ==

== ENCOUNTER 2022-06-06 08:35 | Day surgery (SDC) | payer OTHER, SELFPAY ==
[2022-06-03 15:00] VITALS: BMI 26.1
[2022-06-06] MEDS: Lactated Ringers 1,000 ML 50 ML IVCONT (09:02)
[2022-06-06 09:08] VITALS: BP 123/74; PULSE 66; RESP 18; TEMP 36.6; O2SAT 97
[2022-06-06 09:19] LABS: Glucose, Whole Blood 181 mg/dL (60-115)
--- NOTE | 2022-06-06 09:25 | P.HPSUR_ITS ---
Pre-Procedural Eval Section A Date of Service: 06/06/22 Section B Chief Complaint: reflux disease,screening Relevant Family History (Specify if Yes): No Relevant Social History: None Present Medications: see Short Stay Collaborative assessment Medical History: Significant History (Diabetes mellitus HTN (hypertension) Hypercholesteremia) History of Previous Operations: Relevant previous surgery/procedure and date(s) (colonoscopy) Allergies: Allergies Allergy/AdvReac Type Severity Reaction Status Date / Time No Known Allergies Allergy Verified 01/04/22 13:51 Review of Systems Sugical H&P ROS: Negative: Constitution, Cardiovascular, Respiratory, Neurolog ical, Psychiatric, Hem-Onc, Allergic/Immunologic, Gastrointestinal, Genitourinary, Musculoskeletal, Integumentary, Endocrine and Eyes/Ears/Nose/Throat Exam Surgical H&P Exam: Normal: HEENT, Normal: Heart, Normal: Lungs, Normal: Extremities, Normal: Abdomen, Normal: Skin and Normal: Neurological Plan Diagnosis/Plan: Unchanged I have reviewed the history and physical and performed a pertinent physical examination on my patient. No changes have occurred unless specified. Time Spent With Patient Time: Total time managing care of this patient today ____ minutes.
--- NOTE | 2022-06-06 09:31 | HO.ANESPROP2 ---
HPI - Anesthesia Eval Consult details Narrative: 62 M for EGD and colonoscopy [facility] Active Problems Active Problems: All Active Problems (Updated 01/04/22 @ 20:32 by Anneliese Leblanc [facility]) Gastroesophageal reflux disease (Acute) Poorly controlled type 2 diabetes mellitus (Acute) Left inguinal hernia (Acute) Rotator cuff tear, right (Acute) Rotator cuff dysfunction (Acute) Diabetes mellitus (Acute) Internal derangement of right shoulder (Acute) Phimosis (Acute) BPH w urinary obs/LUTS (Acute) Erectile dysfunction associated with type 2 diabetes mellitus (Acute) Past Medical History Medical History (Updated 01/04/22 @ 20:32 by Anneliese Leblanc [facility]) Diabetes mellitus Gastroesophageal reflux disease HTN (hypertension) Hypercholesteremia Functional capacity: independent ambulation Family History Family History Father Family history of high blood pressure Mother History of high blood pressure Family history of problems with anesthesia: No Surgical History Surgical History History of colonoscopy History of right inguinal hernia repair History of Problems with Anesthesia: No Social History Social History Alcohol intake: current Alcohol intake frequency: does not drink Patient Tobacco Use Status: Never used Tobacco Meds Allergies Allergy/AdvReac Type Severity Reaction Status Date / Time No Known Allergies Allergy Verified 01/04/22 13:51 Active Medications: Current Medications Lactated Ringer's (Lr) 1,000 mls @ 50 mls/hr IVCONT .Q20H ROE Last Admin: 06/06/22 09:02 Dose: 50 mls/hr Home Medications Medication Instructions Recorded Confirmed Last Taken Type atorvastatin 80 mg tablet 80 mg PO DAILY 02/16/20 06/06/22 Unknown History glyburide 5 mg tablet 5 mg PO DAILY 02/16/20 06/06/22 08/14/20 History lisinopril 10 mg tablet 10 mg PO DAILY 02/16/20 06/06/22 08/14/20 History cholecalciferol (vitamin D3) 50 50 mcg PO DAILY 03/05/21 06/06/22 Unknown History mcg (2,000 unit) capsule albuterol sulfate 2.5 mg/3 mL mg inhalation 08/24/21 08/24/21 Unknown History (0.083 %) solution for nebulization albuterol sulfate 90 mcg/actuation 2 puff inhalation QID PRN 08/24/21 06/06/22 Unknown History aerosol inhaler (Ventolin HFA) Shortness Of Breath Or Wheezing blood-glucose meter (FreeStyle #1 ea 08/24/21 08/24/21 Unknown History [place] Lite kit) lancets 33 gauge (TRUEplus Lancets) #100 ea 08/24/21 08/24/21 Unknown History omega-3 fatty acids-fish oil 340 1 cap PO BID 08/24/21 06/06/22 Unknown History mg-1,000 mg capsule (Fish Oil) dulaglutide 4.5 mg/0.5 mL mg subcut QWEEK 06/06/22 06/06/22 Unknown History subcutaneous pen injector (Trulicity) empagliflozin 25 mg tablet 1 tab QAM 06/06/22 06/06/22 Unknown History (Jardiance) Exam Exam Date and Time: June 06, 2022 0931 Height,Weight and Vital Signs: Height 5 ft 6 in Weight 73.482 kg Last Vital Signs Temp 97.9 F 06/06/22 09:08 Pulse 66 06/06/22 09:08 Resp 18 06/06/22 09:08 BP 123/74 06/06/22 09:08 Pulse Ox 97 06/06/22 09:08 O2 Del Method 06/06/22 09:08 Pertinent Lab Results Pertinent Lab Results: Laboratory Tests 06/06/22 09:00 POC Glucose 181 H Airway Mallampati Class: III TM Dist: >3cm Neck ROM: Full Loose/Missing/Broken Teeth: Yes Heart: S1,S2 Lungs: b/l breath sounds Assessment and Plan Assessment Anesthesia Assessment: Anesthesia Plan Discussed and Chart Reviewed Final Anesthetic Review Family History of Problems with Anesthesia: No History of Problems with Anesthesia: No NPO: Yes ASA Class: II Final Preanesthetic Review: Meds/Allgs Chart Reviewed and Consent Obtained/Reviewed Patient Risk: Intermediate Procedure Risk: Intermediate Anesthetic Plan Anesthetic Plan: MAC: Disposition: Standard PACU
--- NOTE | 2022-06-06 10:12 | W.PM.OPN ---
Operative Note Operative Note Date of Service: 06/06/22 Narrative: Operative Information Procedure Description: EGD, Colonoscopy Indication: reflux, screening Anesthesia: MAC FLEXIBLE TRANSORAL UPPER GASTROINTESTINAL ENDOSCOPY AND COLONOSCOPY PROCEDURE NOTE UPPER ENDOSCOPY Consent: Indications for the procedure and potential complications of bleeding, perforation, reaction to medications and missed diagnosis were discussed with the patient and informed consent was obtained. Instrument: Olympus GIF H 190 J mid size upper endoscope Monitoring: Vital signs and clinical assessment, continuous EKG monitoring, Pulse oximetry, Carbon Dioxide monitoring and blood pressure monitoring were done throughout the procedure. Procedure: The patient was placed in the left lateral decubitis position and pre-procedure medications were administered and a bite block was placed. The endoscope was inserted into the mouth and advanced under direct vision to the third part of duodenum. A careful inspection was made as the upper endoscope was withdrawn including a retroflexed examination of the proximal stomach; Findings and interventions are described below. Findings: Larynx:normal Esophagus: GE junction at 38 cm, diaphragm hiatus at 38 cm, incompetent LES with patchy salmon pink colored patches of tissue at GEJ with a single linear erosion noted, bx taken from GEJ and distal esophagus in separate jars Stomach: Mild erythema. Biopsies were obtained. Grade 2 flap valve on retroflexed examination of the cardia. Duodenum: Mild bulbar duodenitis --bx taken Intervention: Biopsies as noted above COLONOSCOPY Instrument: Olympus variable stiffness adult scope 190L Colonoscopy Monitoring: Vital signs and clinical assessment, continuous EKG monitoring, Pulse oximetry, Carbon Dioxide monitoring and blood pressure monitoring were done throughout the procedure. Colon withdrawal time was 8 minutes. Procedure: The patient was placed in the left lateral decubitis position and pre-procedure medications were administered. After a digital rectal examination of the ano-rectum, the video colonoscope was inserted into the rectum and advanced through the colon to the cecum/TI. The colonoscope was slowly withdrawn in a retrograde panoramic fashion and the colon mucosa was carefully examined including a retroflexed view of the rectum. Findings and interventions are described below. Procedure Difficulty:easy Findings: Terminal Ileum-normal Cecum: 6-7 mm sessile polyp removed with cold forceps Ascending Colon: normal Transverse Colon -normal Descending Colon:normal Sigmoid Colon: mild diverticulosis Rectum: Retroflexion with small internal hemorrhoids, grade I Anorectum - normal Colon preparation: [place] Bowel Preparation Scale Right colon; 2 Transverse colon: 3 Left colon; 3 (0 = Unprepared colon segment with mucosa not seen due to solid stool that cannot be cleared. 1 = Portion of mucosa of the colon segment seen, but other areas of the colon segment not well seen due to staining, residual stool and/or opaque liquid. 2 = Minor amount of residual staining, small fragments of stool and/or opaque liquid, but mucosa of colon segment seen well. 3 = Entire mucosa of colon segment seen well with no residual staining, small fragments of stool or opaque liquid) Impression and Post Procedure Diagnosis: Endoscopy Findings: lax LES erosive esophagitis possible barretts gastritis mild duodenitis Colonoscopy Findings: polyp internal hemorrhoids diverticular disease Plan: Await Pathology results Repeat Colonoscopy in 5-7 years due to adenomatous appearing polyp by kudo pit pattern or earlier if clinically indicated High fiber diet leaflet avoid straining at stool, epsom salts and sitz bath, anusol supps or cream reflux precautions, can consider surgical referral vs ARAT or maximizing medical therapy Above findings were reviewed with the patient and relevant handouts were provided if indicated.
[2022-06-06 10:34] VITALS: BP 103/67; PULSE 88; RESP 16; TEMP 36.6; O2SAT 99
[2022-06-06 10:49] VITALS: BP 95/68; PULSE 77; RESP 16; TEMP 36.6; O2SAT 99
[2022-06-06 11:04] VITALS: BP 102/69; PULSE 82; RESP 20; TEMP 36.6; O2SAT 96
== END 2022-06-06 11:57 | disposition home or self-care (01) ==
PROVIDERS: PCP Pediatrics; Visit Provider Internal Medicine Gastroenterology
PROC: (CPT 45380; principal; 2022-06-06 10:00)
DX: Z12.11 Encounter for screening for malignant neoplasm of colon (principal); D12.0 Benign neoplasm of cecum; K57.30 Diverticulosis of large intestine without perforation or abscess without bleeding; K64.0 First degree hemorrhoids; K21.9 Gastro-esophageal reflux disease without esophagitis; L29.0 Pruritus ani; K29.50 Unspecified chronic gastritis without bleeding; B96.81 Helicobacter pylori [H. pylori] as the cause of diseases classified elsewhere; K29.80 Duodenitis without bleeding; K22.4 Dyskinesia of esophagus; K20.80 Other esophagitis without bleeding; K44.9 Diaphragmatic hernia without obstruction or gangrene; I10 Essential (primary) hypertension; E78.00 Pure hypercholesterolemia, unspecified; E11.9 Type 2 diabetes mellitus without complications; Z79.85 Long-term (current) use of injectable non-insulin antidiabetic drugs; Z79.899 Other long term (current) drug therapy
CPT/HCPCS: 45380; 43239; 82947; 88305; 88312; 88342

== ENCOUNTER → 2022-06-21 10:10 | Outpatient (BNVA) | payer OTHER, SELFPAY | PROVIDERS: PCP Pediatrics; Referring Provider Pediatrics; Visit Provider Nurse Practitioner Family | DX: K21.9 Gastro-esophageal reflux disease without esophagitis (principal); D36.9 Benign neoplasm, unspecified site; A04.8 Other specified bacterial intestinal infections; Z98.890 Other specified postprocedural states | CPT/HCPCS: 99212 ==

== ENCOUNTER → 2022-08-29 11:40 | Outpatient (BNVA) | payer OTHER, SELFPAY | PROVIDERS: PCP Pediatrics; Visit Provider Urology | DX: N40.1 Benign prostatic hyperplasia with lower urinary tract symptoms (principal); N13.8 Other obstructive and reflux uropathy; E11.69 Type 2 diabetes mellitus with other specified complication; N52.1 Erectile dysfunction due to diseases classified elsewhere | CPT/HCPCS: 99212 ==

== ENCOUNTER 2022-11-06 09:26 | Outpatient (REF) | payer OTHER, SELFPAY ==
[2022-11-06 15:35] LABS: Cholesterol 132 mg/dL; Estimated Glomerular Filt Rate > 60; HDL Cholesterol 40 mg/dL; LDL Cholesterol Calculated 53 mg/dl; Triglycerides 198 mg/dL
== END 2022-11-06 09:27 | disposition home or self-care (01) ==
LOC: HO.CHCLDS 09:26
PROVIDERS: Visit Provider Pediatrics
DX: E78.00 Pure hypercholesterolemia, unspecified (principal)
CPT/HCPCS: 36415; 80061; 82565

== ENCOUNTER 2022-11-26 11:25 | Outpatient (AMB) | payer OTHER, SELFPAY ==
--- NOTE | 2022-11-26 11:26 | A.OFFVIS_ITS ---
Intake Intake Visit Reasons: Med follow up Intake Note: Patient is present for Telephone Urology Med: Tadalafil Antibiotic Allergy: None Blood Thinner:None Pharmacy: Allergies No Known Allergies Allergy (Verified 08/29/22 11:54) HPI HPI Comments History of Present Illness Details Kenneth is a pleasant Ethiopian-speaking male. He is a patient of Dr. Eisenberg. Seen for the following urologic conditions - Erectile dysfunction - phimosis Telemedicine Evaluation 15 min Consultation DoxCartoDB Anai Video attempted Partial response to medications Would like to continue Prescription provided 3 month follow-up Erectile dysfunction in setting of diabetes Progressive Partially responsive to oral medications Trial daily oral medications 10 mg with 20 mg on demand Phimosis Difficulty with retraction Cracking around foreskin Unable to fully retract Diabetic Circumcision performed 2020 with good results [facility] Medical History Diabetes mellitus Gastroesophageal reflux disease Helicobacter pylori (H. pylori) HTN (hypertension) Hypercholesteremia Tubular adenoma Surgical History History of colonoscopy History of esophagogastroduodenoscopy (EGD) History of right inguinal hernia repair Family History Father Family history of high blood pressure Mother History of high blood pressure Social History Alcohol intake: current Alcohol intake frequency: does not drink Patient Tobacco Use Status: Never used Tobacco Review of Systems Const All systems reviewed & are unremarkable except as noted in HPI and below Reports no additional complaints Resp Reports no additional complaints GI Reports no additional complaints Reports as per HPI Musc Reports no additional complaints Physical Exam Telemedicine evaluation Appropriate responses Regular breathing rate and rhythm HEENT Head: Yes normal to inspection Ears: hearing grossly normal bilaterally Eyes General: appearance normal, both eyes and all related structures Neck Neck: Yes normal visual inspection Chest Chest palpation & inspection: normal inspection of the chest Resp Effort & Inspection: normal respiratory effort and able to speak in complete sentences Assessment & Plan Assessment & Plan (1) Erectile dysfunction associated with type 2 diabetes mellitus: Code(s): E11.69 - Type 2 diabetes mellitus with other specified complication; N52.1 - Erectile dysfunction due to diseases classified elsewhere (2) BPH w urinary obs/LUTS: Code(s): N40.1 - Benign prostatic hyperplasia with lower urinary tract symptoms; N13.8 - Other obstructive and reflux uropathy Plan Three month follow-up Medications: Refilled tadalafil 10 mg PO DAILY 90 tabs 0RF sexual activity 90 days E11.69 - Type 2 diabetes mellitus with other specified complication, N52.1 - Erectile dysfunction due to diseases classified elsewhere tadalafil On demand medication take 60 minutes before intended activity 20 mg PO ONCE PRN 30 tabs 0RF sexual activity 30 days E11.69 - Type 2 diabetes mellitus with other specified complication, N52.1 - Erectile dysfunction due to diseases classified elsewhere Patient Instructions: Imaging studies, laboratory and physical exam results were discussed and reviewed in detail. No major barriers to patient understanding were identified. An opportunity to ask questions regarding the treatment plan was provided. All questions were answered. The patient expressed understanding and agreement with the above treatment plan. The patient is aware they should contact our office by phone for worsening of their current condition or the appearance of new urologic symptoms. Compliance is encouraged with any medications and followup testing that is ordered. It is a privilege to participate in the urologic care of your patient. If you have any questions or concerns regarding treatment for the above conditions, or other urologic issues, please do not hesitate to contact me. The office telephone contact is [phone]. This note is constructed using voice recognition software. While every effort has been made to ensure accuracy elementary reading specialist errors may have been included. Yours sincerely, Dr Niko Pillai MD, ANUJ [facility] - Urology Providers of Expert, Compassionate Care for the Genitourinary System Telehealth Telehealth Location of provider rendering services: practice address Location of patient: address on file Patient Identification confirmed using: Name, : Yes Telehealth method: video Patient verbally consented to treatment: Yes Patient verbally consented to billing insurance company: Yes Patient informed of any privacy concerns related to visit: Yes Coding Level of Care Code Tele Est Pt Level 3 (62944) Diagnoses Erectile dysfunction associated with type 2 diabetes mellitus E11.69; N52.1 BPH w urinary obs/LUTS N40.1; N13.8
== END 2022-11-26 12:29 | disposition home or self-care (01) ==
LOC: HO.HUSH 11:25
PROVIDERS: PCP Pediatrics; Visit Provider Urology
DX: E11.69 Type 2 diabetes mellitus with other specified complication (principal); N52.1 Erectile dysfunction due to diseases classified elsewhere; N40.1 Benign prostatic hyperplasia with lower urinary tract symptoms; N13.8 Other obstructive and reflux uropathy
CPT/HCPCS: 99213

== ENCOUNTER → 2022-11-26 11:25 | Outpatient (BNVA) | payer OTHER, SELFPAY | PROVIDERS: PCP Pediatrics; Visit Provider Urology ==

== ENCOUNTER → 2022-12-09 08:58 | Outpatient (BNVA) | payer SELFPAY | PROVIDERS: PCP Pediatrics; Visit Provider Physician Assistant Medical | DX: Z02.79 Encounter for issue of other medical certificate (principal) ==

== ENCOUNTER 2022-12-24 09:52 | Outpatient (AMB) | payer OTHER, SELFPAY ==
[2022-12-24 10:04] VITALS: BP 114/69; PULSE 79; BMI 26.4
--- NOTE | 2022-12-24 10:04 | A.OFFVIS_ITS ---
Intake Vital Signs 12/24/22 10:04 Height 5 ft 7 in Weight 168 lb 6.931 oz BMI 26.4 BP 114/69 Blood Pressure Location Lt brachial Position Sitting Pulse 79 Intake Visit Reasons: 6 month fu Intake Note: Kenneth presents in office as a est.patient for a 6month f/u for Gastroesophageal reflux disease PT CC: pt reports having no concerns pt denies any other GI Issues Counseling Director Required: No Accompanied by: Self / Same As Patient Allergies No Known Allergies Allergy (Verified 12/24/22 10:05) HPI 6 month fu HPI Details LAST VISIT: Gastroesophageal reflux disease Upper endoscopy results discussed with patient chronic H pylori with mild focal activity. Patient was encouraged to avoid dietary triggers. Will put him on pantoprazole. Helicobacter pylori (H. pylori) Chronic H pylori. Patient was treated in the past. Considering giving him another 2 weeks of antibiotics. Patient was encouraged to talk to his to get test that or anyone else that lives in the same household. Tubular adenoma One tubular adenoma found without high-grade dysplasia or carcinoma. Patient denies any melena, hematochezia, unintentional weight loss or ribbon like stools. Colorectal screening in 5 years, sooner if clinically symptomatic. Status post colonoscopy Patient denies any ill effects from the prep, anesthesia or procedure itself. Discussed with patient the results. Return for colorectal screening in 5 years due to tubular adenoma found. Mild diverticulosis of sigmoid colon. Small grade 1 internal hemorrhoids. Patient reports that occasionally he will have anal itch. Will give him script for Proctosol. Patient will return in 6 months, sooner on as needed basis. Patient is agreeable to this plan and verbalizes understanding of instructions. He was given the opportunity to ask questions and all questions answered. ? Thank you for allowing me to participate in his care Plan Medications New pantoprazole take one tablet half an hour before breakfast 40 mg PO DAILY 90 tabs 2RF K21.9 hydrocortisone 2.5% (Proctosol HC) 1 appl LA BID-QID PRN 30 grams 2RF hemorrhoi ds K64.9 Discontinued metronidazole Discontinued Reason: Patient no longer taking 1,000 mg (2 x 500 mg) PO BID 56 tabs 0RF A04.8 TODAY'S VISIT: Patient is here today for follow-up. Patient reports that he has been feeling better after starting pantoprazole. Patient states that no longer acid reflux, denies dyspepsia, dysphagia or odynophagia. Patient reports that he is moving his bowels better, however he reports episode severe abdominal bloating and cramping last week and unable to have a BM for 3 hours or so. Patient states he felt better after moving his bowels. Patient denies any abdominal pain discomfort. Denies unintentional weight loss or like stools. Denies any other GI concerning symptoms. [facility] Medical History Diabetes mellitus Gastroesophageal reflux disease Helicobacter pylori (H. pylori) HTN (hypertension) Hypercholesteremia Tubular adenoma Surgical History History of colonoscopy History of esophagogastroduodenoscopy (EGD) History of right inguinal hernia repair Family History Father Family history of high blood pressure Mother History of high blood pressure Social History Alcohol intake: current Alcohol intake frequency: does not drink Patient Tobacco Use Status: Never used Tobacco Review of Systems Const Denies weight gain and Denies weight loss ENT Reports no additional complaints, Denies dysphagia and Denies odynophagia Card Reports no additional complaints Resp Reports no additional complaints GI Denies abdominal pain, Denies belching, Denies melena, Denies bloating, Denies change in bowel habits, Denies dysphagia, Denies excessive flatus, Denies dyspepsia, Denies heartburn, Denies diarrhea, Denies loose stools, Denies nausea, Denies odynophagia and Denies vomiting Reports no additional complaints Musc Reports no additional complaints Neuro Reports no additional complaints Psych Reports no additional complaints Endo Reports no additional complaints Physical Exam Vital Signs: Last Vital Signs Pulse 79 12/24/22 10:04 BP 114/69 12/24/22 10:04 BMI result Body Mass Index 26.4 Const General: healthy appearing, no acute distress and well developed Nutritional Appearance: well nourished Orientation/consciousness: patient oriented x3 HEENT Head: Yes normal to inspection, Yes normocephalic and Yes atraumatic Face and sinus: Yes normal facial exam Mouth: Normal oral and palatal mucosa present Throat: Yes posterior oropharynx normal, Yes tonsils normal and Yes uvula midline Eyes General: appearance normal, both eyes and all related structures Neck Neck: Yes normal visual inspection, Yes full ROM and Yes trachea midline Thyroid: Thyroid normal Resp Effort & Inspection: normal respiratory effort, able to speak in complete sentences, no tracheal deviation and symmetric chest movement Auscultation: clear to auscultation bilaterally Cardio Rate: regular rate Heart sounds: S1 normal heart sound present and S2 normal heart sound present GI Inspection: Yes normal to inspection and No distended Palpation (GI): Soft to palpation, not firm, nontender and No hepatosplenomegaly present Auscultation: normal bowel sounds General: Yes no CVA tenderness Back/Spine/Pelvis Back: no CVA tenderness Skin General skin exam: elasticity normal, turgor normal and dry skin Neuro General: patient oriented x3 Psych Appearance: grossly normal Mental Status: mental status grossly normal Speech and movement: Normal speech and movement present Assessment & Plan Assessment & Plan (1) Gastroesophageal reflux disease: Code(s): K21.9 - Gastro-esophageal reflux disease without esophagitis Qualifiers: Esophagitis presence: esophagitis presence not specified Qualified Code(s): K21.9 - Gastro-esophageal reflux disease without esophagitis Plan: Continue taking pantoprazole every morning. Patient was encouraged to continue avoiding dietary triggers. Staying upright for minimum 3 hours after meals discussed with patient. (2) Constipation: Code(s): K59.00 - Constipation, unspecified Qualifiers: Constipation type: slow transit constipation Qualified Code(s): K59.01 - Slow transit constipation Plan: Patient was encouraged to increase fluid intake and activity to promote better bowel motility. Patient can take daily to help his bowels I will see him in 6 months, sooner on as needed basis. Patient is agreeable to plan of care and verbalizes understanding instructions. He was given the opportunity to ask questions and all questions answered. Thank you for allowing me to participate in his care Medications: New polyethylene glycol 3350 (Miralax) 17 grams PO DAILY 510 grams 2RF Refilled pantoprazole take one tablet half an hour before breakfast 40 mg PO DAILY 90 tabs 2RF K21.9 - Gastro-esophageal reflux disease without esophagitis Coding Level of Care Code Est Pt Level 3 (43951) Diagnoses Gastroesophageal reflux disease K21.9 Esophagitis presence: esophagitis presence not specified Constipation K59.01 Constipation type: slow transit constipation Time Spent (min) 30 Comment 20 minutes spent with patient and additional 10 minutes spent reviewing his records
== END 2022-12-24 10:27 | disposition home or self-care (01) ==
PROVIDERS: PCP Pediatrics; Visit Provider Nurse Practitioner Family
DX: K21.9 Gastro-esophageal reflux disease without esophagitis (principal); K59.01 Slow transit constipation
CPT/HCPCS: 99213

== ENCOUNTER → 2022-12-24 09:52 | Outpatient (BNVA) | payer OTHER, SELFPAY | PROVIDERS: PCP Pediatrics; Visit Provider Nurse Practitioner Family | DX: K21.9 Gastro-esophageal reflux disease without esophagitis (principal); K59.01 Slow transit constipation; Z79.899 Other long term (current) drug therapy | CPT/HCPCS: 99212 ==

== ENCOUNTER 2023-04-17 09:11 | Outpatient (REF) | payer OTHER, SELFPAY ==
[2023-04-17 14:28] LABS: Alanine Aminotransferase 32 U/L (0-40); Aspartate Amino Transferase 22 U/L (5-37); Estimated Average Glucose 203 mg/dL; Hemoglobin A1c % 8.7 % (<6.0)
== END 2023-04-17 09:12 | disposition home or self-care (01) ==
LOC: HO.CHCLDS 09:11
PROVIDERS: Visit Provider Pediatrics
DX: E11.9 Type 2 diabetes mellitus without complications (principal)
CPT/HCPCS: 36415; 83036; 84450; 84460

== ENCOUNTER 2023-06-24 16:39 | Outpatient (AMB) | payer OTHER, SELFPAY ==
--- NOTE | 2023-06-24 16:39 | MHC.OFFVIS ---
Intake Vital Signs 06/24/23 16:40 Height 5 ft 7 in Weight 168 lb 13.985 oz BMI 26.4 BP 126/56 L Blood Pressure Location Lt brachial Position Sitting Intake Visit Reasons: 6 month follow up Intake Note: Kenneth presents in office today in 6 months follow up of GERD. CC: Patient c/o abdominal pain almost every day in the morning that leaves him without breath and when he eats something he feels better. He states that he would like to have his pancreas checked. Temperer Required: No Accompanied by: Self / Same As Patient Allergies No Known Allergies Allergy (Verified 06/24/23 16:44) HPI 6 month follow up HPI Details LAST VISIT Gastroesophageal reflux disease Continue taking pantoprazole every morning. Patient was encouraged to continue avoiding dietary triggers. Staying upright for minimum 3 hours after meals discussed with patient. Constipation Patient was encouraged to increase fluid intake and activity to promote better bowel motility. Patient can take daily to help his bowels I will see him in 6 months, sooner on as needed basis. Patient is agreeable to plan of care and verbalizes understanding instructions. He was given the opportunity to ask questions and all questions answered. ? Thank you for allowing me to participate in his care Plan Medications New polyethylene glycol 3350 (Miralax) 17 grams PO DAILY 510 grams 2RF Refilled pantoprazole take one tablet half an hour before breakfast 40 mg PO DAILY 90 tabs 2RF K21.9 - Gastro-esophageal reflux disease without esophagitis TODAY'S VISIT Patient is here today for follow-up. Patient reports that he is moving his bowels well and does not need to use MiraLax every day. Patient states that he has epigastric discomfort usually when he wakes up in the morning. Patient denies eating late at night. States that his symptoms are better after he eats. Patient does take pantoprazole every morning half an hour before breakfast. Patient reports occasional abdominal bloating. Patient reports that he did change his diet and is eating healthier. Patient denies dyspepsia, dysphagia or odynophagia. Denies any nausea or vomiting. Denies any melena, hematochezia, unintentional weight loss or ribbon like stools. [facility] Medical History Tubular adenoma Helicobacter pylori (H. pylori) Gastroesophageal reflux disease HTN (hypertension) Hypercholesteremia Diabetes mellitus Surgical History History of esophagogastroduodenoscopy (EGD) History of right inguinal hernia repair History of colonoscopy Family History Father Family history of high blood pressure Mother History of high blood pressure Social History Alcohol intake: current Alcohol intake frequency: does not drink Patient Tobacco Use Status: Never used Tobacco Review of Systems Const Denies weight gain and Denies weight loss ENT Reports no additional complaints, Denies dysphagia and Denies odynophagia Card Reports no additional complaints Resp Reports no additional complaints GI Reports abdominal pain, Denies belching, Denies melena, Reports bloating, Denies change in bowel habits, Denies dysphagia, Denies excessive flatus, Denies dyspepsia, Denies heartburn, Denies diarrhea, Denies loose stools, Denies nausea, Denies odynophagia and Denies vomiting Reports no additional complaints Musc Reports no additional complaints Neuro Reports no additional complaints Psych Reports no additional complaints Endo Reports no additional complaints Physical Exam Vital Signs: Last Vital Signs BP 126/56 L 06/24/23 16:40 BMI result Body Mass Index 26.4 Const General: healthy appearing, no acute distress and well developed Nutritional Appearance: well nourished Orientation/consciousness: patient oriented x3 Resp Effort & Inspection: normal respiratory effort, able to speak in complete sentences, no tracheal deviation and symmetric chest movement Auscultation: clear to auscultation bilaterally Cardio Rate: regular rate GI Inspection: Yes normal to inspection and No distended Palpation (GI): Soft to palpation, not firm, nontender and No hepatosplenomegaly present Auscultation: normal bowel sounds General: Yes no CVA tenderness Back/Spine/Pelvis Back: no CVA tenderness Skin General skin exam: elasticity normal, turgor normal and dry skin Neuro General: patient oriented x3 Psych Appearance: grossly normal Mental Status: mental status grossly normal Assessment & Plan Assessment & Plan (1) Gastroesophageal reflux disease: Code(s): K21.9 - Gastro-esophageal reflux disease without esophagitis Qualifiers: Esophagitis presence: esophagitis presence not specified Qualified Code(s): K21.9 - Gastro-esophageal reflux disease without esophagitis (2) Constipation: Code(s): K59.00 - Constipation, unspecified Qualifiers: Constipation type: slow transit constipation Qualified Code(s): K59.01 - Slow transit constipation (3) Abdominal bloating: Code(s): R14.0 - Abdominal distension (gaseous) (4) Abdominal pain: Code(s): R10.9 - Unspecified abdominal pain Qualifiers: Abdominal location: epigastric Qualified Code(s): R10.13 - Epigastric pain Plan Patient reports epigastric pain that is relieved with pantoprazole and breakfast. Will start him on famotidine at bedtime. Patient was encouraged to avoid dietary triggers and late night snacking. Staying upright for minimal 3 hours after meals discussed with patient. Patient will get blood work done. Will check lipase, liver panel, rule out pancreatic insufficiency. Patient will return in 6 months, sooner on as needed basis. If all results come back normal we will have patient stop PPI for 2 weeks and do breath test to check for H pylori. Patient is agreeable to plan of care and verbalizes understanding of instructions. He was given the opportunity to ask questions and all questions answered. Thank you for allowing me to participate in his care Orders: Orders Lipase 06/25/23 R10.9 - Unspecified abdominal pain Liver Panel 06/25/23 R74.01 - Elevation of levels of liver transaminase levels Pancreatic Elastase-1 06/25/23 R10.9 - Unspecified abdominal pain Medications: New famotidine (Pepcid) 20 mg PO BEDTIME 30 tabs 3RF K21.9 - Gastro-esophageal reflux disease without esophagitis Coding Level of Care Code Est Pt Level 4 (59724) Diagnoses Gastroesophageal reflux disease, unspecified whether esophagitis present K21.9 Esophagitis presence: esophagitis presence not specified Slow transit constipation K59.01 Constipation type: slow transit constipation Abdominal bloating R14.0 Epigastric pain R10.13 Abdominal location: epigastric Time Spent (min) 35 Comment 20 minutes spent with patient and additional 15 minutes spent reviewing his records
[2023-06-24 16:40] VITALS: BP 126/56; BMI 26.4
== END 2023-06-24 17:02 | disposition home or self-care (01) ==
LOC: HO.HGI 16:39
PROVIDERS: PCP Pediatrics; Visit Provider Nurse Practitioner Family
DX: K21.9 Gastro-esophageal reflux disease without esophagitis (principal); K59.01 Slow transit constipation; R14.0 Abdominal distension (gaseous); R10.13 Epigastric pain
CPT/HCPCS: 99214

== ENCOUNTER → 2023-06-24 16:39 | Outpatient (BNVA) | payer SELFPAY | PROVIDERS: PCP Pediatrics; Visit Provider Nurse Practitioner Family | DX: K21.9 Gastro-esophageal reflux disease without esophagitis (principal); K59.01 Slow transit constipation; R14.0 Abdominal distension (gaseous); R10.13 Epigastric pain | CPT/HCPCS: 99212 ==

== ENCOUNTER 2023-06-25 08:52 | Outpatient (REF) | payer OTHER, SELFPAY ==
[2023-06-25 10:45] LABS: Alanine Aminotransferase 33 U/L (0-40); Albumin Level 4.4 g/dL (3.5-5.0); Alkaline Phosphatase 78 U/L (39-117); Aspartate Amino Transferase 17 U/L (5-37); Bilirubin Direct 0.2 mg/dL (0.0-0.5); Bilirubin Total 0.7 mg/dL (0.0-1.0); Lipase 48 U/L (8-78); Total Protein 7.1 g/dL (6.5-8.0)
[2023-07-01 22:58] LABS: Pancreatic Elastase-1 371 mcg/g
== END 2023-06-25 08:53 | disposition home or self-care (01) ==
LOC: HO.LAB 08:52
PROVIDERS: PCP Pediatrics; Visit Provider Nurse Practitioner Family
DX: R10.9 Unspecified abdominal pain (principal); R74.01 Elevation of levels of liver transaminase levels
CPT/HCPCS: 36415; 80076; 82656; 83690

== ENCOUNTER 2023-07-03 11:06 | Outpatient (AMB) | payer OTHER, SELFPAY ==
--- NOTE | 2023-07-03 11:16 | A.OFFVIS_ITS ---
Intake Intake Visit Reasons: 3M PVR Intake Note: Patient presents today for a follow-up / PVR Meds- Tadalafil, Vardenafil Allergies to Antibiotic- No Known Allergies Blood Thinner- None Post Void Residual: 12ml Contract Specialist Required: No Accompanied by: Self / Same As Patient Allergies No Known Allergies Allergy (Verified 07/03/23 11:35) HPI HPI Comments History of Present Illness Details Kenneth is a pleasant [place]-speaking male. He is a patient of Dr. Eisenberg. Seen for the following urologic conditions - Erectile dysfunction - phimosis Partial response to medications Discussed other options including penile injections and penile prosthetic Pertinent information provided He will consider Six-month follow-up Erectile dysfunction in setting of diabetes Progressive Partially responsive to oral medications Trial daily oral medications 10 mg with 20 mg on demand Phimosis Difficulty with retraction Cracking around foreskin Unable to fully retract Diabetic Circumcision performed 2020 with good results [facility] Medical History Tubular adenoma Helicobacter pylori (H. pylori) Gastroesophageal reflux disease HTN (hypertension) Hypercholesteremia Diabetes mellitus Surgical History History of esophagogastroduodenoscopy (EGD) History of right inguinal hernia repair History of colonoscopy Family History Father Family history of high blood pressure Mother History of high blood pressure Social History Alcohol intake: current Alcohol intake frequency: does not drink Patient Tobacco Use Status: Never used Tobacco Review of Systems Const Denies chills and Denies fever(s) Card Reports no additional complaints and Denies syncope Resp Denies cough GI Denies abdominal pain and Denies heartburn Reports as per HPI and Denies change in libido Neuro Denies syncope Psych Denies change in libido Endo Denies change in libido Physical Exam Const General: cooperative, healthy appearing, comfortable and no acute distress Orientation/consciousness: patient oriented x3 HEENT Face and sinus: Yes normal facial exam Mouth: moist mucous membranes Neck Neck: Yes normal visual inspection, Yes full ROM and Yes trachea midline Chest Chest palpation & inspection: normal inspection of the chest Resp Effort & Inspection: normal respiratory effort, able to speak in complete sentences and no respiratory distress GI Inspection: Yes normal to inspection Back/Spine/Pelvis Cervical Spine: normal cervical lordosis Thoracic/Lumbar Spine: thoracic and lumbar spine normal to inspection Skin General skin exam: no rashes or lesions noted Neuro General: patient oriented x3, gait normal, tone normal and moves all extremities Extrem General: Yes normal to inspection and Yes capillary refill normal Office Procedures Post Void Residual Post Residual Void Post Void Residual (PVR): 12 [id number] Void Residual by ultrasound Assessment & Plan Assessment & Plan (1) BPH w urinary obs/LUTS: Code(s): N40.1 - Benign prostatic hyperplasia with lower urinary tract symptoms; N13.8 - Other obstructive and reflux uropathy (2) Phimosis: Code(s): N47.1 - Phimosis (3) Erectile dysfunction associated with type 2 diabetes mellitus: Code(s): E11.69 - Type 2 diabetes mellitus with other specified complication; N52.1 - Erectile dysfunction due to diseases classified elsewhere Plan Six-month follow-up Orders: Orders AMB Post Void Residual by ultrasound Today N13.8 - Other obstructive and reflux uropathy, N40.1 - Benign prostatic hyperplasia with lower urinary tract symptoms, R33.9 - Retention of urine, unspecified Patient Instructions: Imaging studies, laboratory and physical exam results were discussed and reviewed in detail. No major barriers to patient understanding were identified. An opportunity to ask questions regarding the treatment plan was provided. All questions were answered. The patient expressed understanding and agreement with the above treatment plan. The patient is aware they should contact our office by phone for worsening of their current condition or the appearance of new urologic symptoms. Compliance is encouraged with any medications and followup testing that is ordered. It is a privilege to participate in the urologic care of your patient. If you have any questions or concerns regarding treatment for the above conditions, or other urologic issues, please do not hesitate to contact me. The office telephone contact is [phone]. This note is constructed using voice recognition software. While every effort has been made to ensure accuracy ginseng farmer errors may have been included. Yours sincerely, Dr Niko Pillai MD, ANUJ [facility] - Urology Providers of Expert, Compassionate Care for the Genitourinary System Coding Level of Care Code Est Pt Level 3 (35647) Diagnoses BPH w urinary obs/LUTS N40.1; N13.8 Phimosis N47.1 Erectile dysfunction associated with type 2 diabetes mellitus E11.69; N52.1 CPT Codes Post Residual Void - PVR CPT Code: 08129-[id number] Void Residual by ultrasound ([id number])
== END 2023-07-03 11:57 | disposition home or self-care (01) ==
PROVIDERS: PCP Pediatrics; Visit Provider Urology
DX: N40.1 Benign prostatic hyperplasia with lower urinary tract symptoms (principal); N13.8 Other obstructive and reflux uropathy; N47.1 Phimosis; E11.69 Type 2 diabetes mellitus with other specified complication; N52.1 Erectile dysfunction due to diseases classified elsewhere
CPT/HCPCS: 99213

== ENCOUNTER → 2023-07-03 11:06 | Outpatient (BNVA) | payer OTHER, SELFPAY | PROVIDERS: PCP Pediatrics; Visit Provider Urology | DX: N40.1 Benign prostatic hyperplasia with lower urinary tract symptoms (principal); N13.8 Other obstructive and reflux uropathy; N47.1 Phimosis; E11.69 Type 2 diabetes mellitus with other specified complication; N52.1 Erectile dysfunction due to diseases classified elsewhere | CPT/HCPCS: 51798; 99212 ==

== ENCOUNTER 2023-07-21 09:00 | Outpatient (REF) | payer OTHER, SELFPAY ==
[2023-07-23 07:21] LABS: H Pylori Breath Test Positive (Negative)
== END 2023-07-21 09:01 | disposition home or self-care (01) ==
LOC: HO.LNP 09:00
PROVIDERS: PCP Pediatrics; Visit Provider Nurse Practitioner Family
DX: Z11.0 Encounter for screening for intestinal infectious diseases (principal)
CPT/HCPCS: 83013; 99211

== ENCOUNTER 2023-08-22 12:27 | Outpatient (AMB) | payer OTHER, SELFPAY ==
--- NOTE | 2023-08-22 12:30 | MHC.OFFVIS ---
Intake Visit Reasons: ov- RT shoulder pain Intake Note: Kenneth is a 63 year old male who presents today for a follow up of his right RTC Tear. At his last visit it was discussed that we would proceed with RTC repair, but this was cancelled due to hernia repair. Patient presents today to re-discuss surgical intervention. Allergies No Known Allergies Allergy (Verified 07/03/23 11:35) HPI HPI ov- RT shoulder pain: Details: Kenneth is a 63 year old male who presents today for a follow up of his right RTC Tear. At his last visit it was discussed that we would proceed with RTC repair, but this was cancelled due to hernia repair. Patient presents today to re-discuss surgical intervention. He was unable to have his surgery 2 years for financial and personal reasons. He now describes worsening pain and weakness. He states it never improved. [facility] Medical History (Updated 08/22/23 @ 14:50 by Sudhakar Freeman MD) Tubular adenoma Helicobacter pylori (H. pylori) Gastroesophageal reflux disease HTN (hypertension) Hypercholesteremia Diabetes mellitus Surgical History History of esophagogastroduodenoscopy (EGD) History of right inguinal hernia repair History of colonoscopy Family History Father Family history of high blood pressure Mother History of high blood pressure Social History Alcohol intake: current Alcohol intake frequency: does not drink Patient Tobacco Use Status: Never used Tobacco Physical Exam Const General: cooperative, healthy appearing, no acute distress and well groomed Orientation/consciousness: oriented to person and oriented to place HEENT Head: Yes normal to inspection, Yes normocephalic and Yes atraumatic Eyes General: appearance normal, both eyes and all related structures Alignment and Position: alignment normal Conjunctivae: conjunctivae normal EOM: EOMs intact bilaterally Neck Neck: Yes normal visual inspection and Yes trachea midline Resp Other: No rerpiratory distress Effort & Inspection: normal respiratory effort and able to speak in complete sentences Cardio Other: Palpable radial pulse with no appreciable rythmic abnormalities GI Other: No abdominal distension Back/Spine/Pelvis Cervical Spine: normal cervical lordosis and cervical ROM normal Skin General skin exam: no rashes or lesions noted Neuro General: oriented to person, oriented to place and gait normal Extrem Other: Right shoulder with 90/120/40/L5. 4/5 with empty can testing. Negative lift-off. Positive Crockett and Neer. Results Reviewed Results Reviewed: MRI from 2021 IMPRESSION: 1. Supraspinatus tendinosis with anterior full-thickness partial tearing measuring 2.1 x 1.7 cm (AP by ML). Mild to moderate infraspinatus tendinosis with mild fraying/partial tearing of the anterior tendon fibers. Assessment & Plan Assessment & Plan (1) Rotator cuff tear, right: Code(s): M75.101 - Unspecified rotator cuff tear or rupture of right shoulder, not specified as traumatic Category: Medical Plan: This is an active and healthy 63 yo M with a full thickness tear of his right RTC. He is diabetic but states it is controlled. I recommend RTC repair. I discussed the risks benefits and alternatives including but not limited to the risk of pain, infection, stiffness, need for further surgery as well as the possibility that it is not fully repairable given the duration since last vist. I also discussed potential medical complications such as blood clots, pulmonary embolism and cardiac complications. (2) Diabetes mellitus: Comment: NIDDM Code(s): E11.9 - Type 2 diabetes mellitus without complications Category: Medical Plan: Coding Level of Care Code Est Pt Level 4 (74716) Diagnoses Rotator cuff tear, right M75.101 Diabetes mellitus E11.9
== END 2023-08-22 13:04 | disposition home or self-care (01) ==
PROVIDERS: PCP Pediatrics; Visit Provider Orthopaedic Surgery
DX: M75.101 Unspecified rotator cuff tear or rupture of right shoulder, not specified as traumatic (principal); E11.9 Type 2 diabetes mellitus without complications
CPT/HCPCS: 99214

== ENCOUNTER → 2023-08-22 12:27 | Outpatient (BNVA) | payer OTHER, SELFPAY | PROVIDERS: PCP Pediatrics; Visit Provider Orthopaedic Surgery | DX: M75.101 Unspecified rotator cuff tear or rupture of right shoulder, not specified as traumatic (principal); E11.9 Type 2 diabetes mellitus without complications | CPT/HCPCS: 99212 ==

== ENCOUNTER 2023-11-05 10:13 | Outpatient (REF) | payer OTHER, SELFPAY ==
[2023-11-05 13:59] LABS: MANUAL DIFF FLAG NO
[2023-11-05 14:11] LABS: Basophils Absolute Auto 0.1 X10*3/uL (0.0-0.2); Basophils Percent Auto 0.8 % (0-2); Eosinophils Absolute Auto 0.1 X10*3/uL (0.0-0.4); Eosinophils Percent Auto 1.3 % (0-4); Hematocrit 43.4 % (42.0-52.0); Hemoglobin 15.2 g/dl (14.0-18.0); Imm Gran Abs Auto 0.02 X10*3/uL (0.00-0.03); Imm Gran Pct Auto 0.3 % (0.0-0.4); Lymphocytes Absolute Auto 1.9 X10*3/uL (1.2-4.9); Lymphocytes Percent Auto 29.2 % (20-40); Mean Corpuscular Hemoglobin 32.3 pg (27.0-33.0); Mean Corpuscular Volume 92.3 fL (80.0-98.0); Mean Platelet Volume 11.1 fL (9.4-12.4); Monocytes Absolute Auto 0.4 X10*3/uL (0.1-1.2); Monocytes Percent Auto 6.9 % (2-11); Neutrophils Absolute Auto 3.9 x10*3/uL (2.0-8.3); Neutrophils Percent Auto 61.5 % (45-73); Platelet Count 135 X10*3/uL (160-400); White Blood Count 6.4 X10*3/uL (4.8-10.8)
[2023-11-05 14:41] LABS: Anion Gap 14 (12-20); Blood Urea Nitrogen 25 mg/dL (9-16); Calcium 9.5 mg/dL (8.4-10.2); Carbon Dioxide 24 mmol/L (22-29); Chloride 105 mmol/L (96-108); Cholesterol 102 mg/dL (<200); Estimated Glomerular Filt Rate > 60; Glucose Fasting 123 mg/dL (60-99); HDL Cholesterol 45 mg/dL (>40); LDL Cholesterol Calculated 36 mg/dL (<100); Potassium 3.9 mmol/L (3.3-5.1); Prostate Specific Antigen Scr 1.55 ng/mL (<0.05-4.0); Sodium 139 mmol/L (135-145); Triglycerides 106 mg/dL (<150)
[2023-11-05 14:44] LABS: TSH reflex Free T4 0.76 uIU/mL (0.32-4.0)
[2023-11-05 14:50] LABS: Creatinine Urine 73.67 mg/dL; Microalbum/Creatinine Ratio Ur 20.3 ug/mg cr (<30)
== END 2023-11-05 10:14 | disposition home or self-care (01) ==
LOC: HO.CHCLDS 10:13
PROVIDERS: Visit Provider Pediatrics
DX: Z00.00 Encounter for general adult medical examination without abnormal findings (principal); E78.00 Pure hypercholesterolemia, unspecified; E11.9 Type 2 diabetes mellitus without complications; I10 Essential (primary) hypertension
CPT/HCPCS: 36415; 80048; 80061; 82043; 82570; 84153; 84443; 85025

== ENCOUNTER → 2023-12-09 07:47 | Outpatient (BNVA) | payer SELFPAY | PROVIDERS: PCP Pediatrics; Visit Provider Physician Assistant Medical | DX: Z02.79 Encounter for issue of other medical certificate (principal) ==

== ENCOUNTER 2024-01-08 10:59 | Outpatient (AMB) | payer OTHER, SELFPAY ==
--- NOTE | 2024-01-08 11:05 | A.OFFVIS_ITS ---
Intake Visit Reasons: Preop RT RTC 01/14/24 NE Intake Note: Kenneth is a 63 year old right hand dominant male who presnets today for a pre op appointment for his right RTC repair 01/14/24 NE. Speech Language Pathologist Travel Services: Speech Language Pathologist Travel Present (marisa ([id number])) Allergies No Known Allergies Allergy (Verified 07/03/23 11:35) HPI HPI Preop RT RTC 01/14/24 NE: Details: 63-year-old male, who is Uruguayan speaking, presents in the office today for his preoperative history and physical exam prior to a right rotator cuff repair to be performed on 01/14/[address] Sudhakar Freeman.? ? Patient has no known allergy history.? ? Patient is currently taking, as follows:? -Albuterol sulfate 90 mcg/actuation 2 puffs inhalation QID PRN? -Atorvastatin 80 mg PO daily? -Bismuth subsalicylate 2 tabs PO QID? -Dulaglutide 4.5 mg subcut QWeek ? -Empagliflozin 25 mg PO QAM? -Famotidine 20 mg PO bedtime? -Glyburide 5 mg PO daily? -Hydrocortisone 2.5% topical 1 application BID-QID PRN? -Lisinopril 10 mg PO daily? -Metronidazole 1,000 mg PO BID? -Omeprazole 20 mg PO BID? -Pantoprazole 40 mg PO daily? -Polyethylene glycol 17 grams PO daily? -Tadalafil 10 mg PO daily? -Tetracycline 1,000 mg PO daily PRN? -Vardenafil 20 mg PO daily PRN? ? Patient has a medical history, as follows:? -Diabetes mellitus? -Tubular adenoma? -GERD? -Left inguinal hernia? -Phimosis? -Erectile dysfunction? -Helicobacter pylori (H. pylori)? -Hypertension? -Hypercholesteremia? ? Patient has a surgical history, as follows:? -Hx of esophagogastroduodenoscopy (EGD); [place] [facility] [place] -Hx?of right inguinal hernia repair? -Hx?of colonoscopy; 06/06/22 [facility] [place] Joseph? PFSH Medical History (Updated 08/22/23 @ 14:50 by Sudhakar Freeman MD) Tubular adenoma Helicobacter pylori (H. pylori) Gastroesophageal reflux disease HTN (hypertension) Hypercholesteremia Diabetes mellitus Surgical History History of esophagogastroduodenoscopy (EGD) History of right inguinal hernia repair History of colonoscopy Family History Father Family history of high blood pressure Mother History of high blood pressure Social History Alcohol intake: current Alcohol intake frequency: does not drink Patient Tobacco Use Status: Never used Tobacco Review of Systems Const All systems reviewed & are unremarkable except as noted in HPI and below Physical Exam Const General: cooperative, healthy appearing, comfortable, no acute distress, well developed, alert and awake Orientation/consciousness: patient oriented x3 HEENT Head: Yes normal to inspection, Yes normocephalic and Yes atraumatic Eyes General: appearance normal, both eyes and all related structures Alignment and Position: alignment normal Conjunctivae: conjunctivae normal EOM: EOMs intact bilaterally Neck Neck: Yes normal visual inspection and Yes no lymphadenopathy Resp Other: No rerpiratory distress Effort & Inspection: normal respiratory effort and able to speak in complete sentences Cardio Other: Palpable radial pulse with no appreciable rythmic abnormalities Rate: regular rate Peripheral pulses: Peripheral pulses 2+ throughout GI Other: No abdominal distension Inspection: Yes normal to inspection Palpation (GI): Soft to palpation Back/Spine/Pelvis Cervical Spine: normal cervical lordosis and cervical ROM normal Skin General skin exam: no rashes or lesions noted Neuro General: patient oriented x3 Extrem Other: Right shoulder with 90/120/40/L5. 4/5 with empty can testing. Negative lift-off. Positive Crockett and Neer. Psych Mental Status: mental status grossly normal Assessment & Plan Assessment & Plan (1) Rotator cuff tear, right: Code(s): M75.101 - Unspecified rotator cuff tear or rupture of right shoulder, not specified as traumatic Category: Medical (2) Diabetes mellitus: Comment: NIDDM Code(s): E11.9 - Type 2 diabetes mellitus without complications Category: Medical Plan Mr. Jorge is a 63-year-old male, who is [place]ruguayan speaking, presents in the office today for his preoperative history and physical exam prior to a right rotator cuff repair to be performed on 01/14/[address] Sudhakar Freeman.? ? Patient has no known allergy history.? ? Patient is currently taking, as follows:? -Albuterol sulfate 90 mcg/actuation 2 puffs inhalation QID PRN? -Atorvastatin 80 mg PO daily? -Bismuth subsalicylate 2 tabs PO QID? -Dulaglutide 4.5 mg subcut QWeek ? -Empagliflozin 25 mg PO QAM? -Famotidine 20 mg PO bedtime? -Glyburide 5 mg PO daily? -Hydrocortisone 2.5% topical 1 application BID-QID PRN? -Lisinopril 10 mg PO daily? -Metronidazole 1,000 mg PO BID? -Omeprazole 20 mg PO BID? -Pantoprazole 40 mg PO daily? -Polyethylene glycol 17 grams PO daily? -Tadalafil 10 mg PO daily? -Tetracycline 1,000 mg PO daily PRN? -Vardenafil 20 mg PO daily PRN? ? Patient has a medical history, as follows:? -Diabetes mellitus? -Tubular adenoma? -GERD? -Left inguinal hernia? -Phimosis? -Erectile dysfunction? -Helicobacter pylori (H. pylori)? -Hypertension? -Hypercholesteremia? ? Patient has a surgical history, as follows:? -Hx of esophagogastroduodenoscopy (EGD); 06/06/[place] [facility] [place]? -Hx?of right inguinal hernia repair? -Hx?of colonoscopy; 06/06/22 [facility] [place] Joseph? ? I discussed in detail the procedure and what to expect pre and post operatively. We discussed the risks, benefits, alternatives to the surgery and the rehabilitation course. The risks include infection, bleeding, nerve injury, ongoing pain, swelling, and stiffness, perioperative risk of injury to bones and soft tissues, and blood clots.?? ? I have answered all questions and with their understanding they have consented to move forward with a right rotator cuff repair to be performed on 01/14/[address] Sudhakar Freeman.? ? Follow-up will be at the post operative appointment on 01/22/24, or sooner if needed.? ? Discussed discontinuing dulaglutide 4.5 mg subcut QWeek for 7 days and empagl iflozin 25 mg PO QAM for 3 days prior to surgery.? ? A work note was supplied to the patient stating the patient will remain out of work until June of 2024.? ? Patient was fitted for the sling while in the office today.? Patient Instructions: Scribed by Elizabeth Gaston medical accountant, for Manisha Sims PA-C on 01/08/2024 at 11:03am, EST.? Coding Level of Care Code Global (25797) Diagnoses Rotator cuff tear, right M75.101 Diabetes mellitus E11.9
== END 2024-01-08 11:37 | disposition home or self-care (01) ==
PROVIDERS: PCP Pediatrics; Visit Provider Physician Assistant
DX: M75.101 Unspecified rotator cuff tear or rupture of right shoulder, not specified as traumatic (principal); E11.9 Type 2 diabetes mellitus without complications
CPT/HCPCS: 99024

== ENCOUNTER → 2024-01-08 10:59 | Outpatient (BNVA) | payer OTHER, SELFPAY | PROVIDERS: PCP Pediatrics; Visit Provider Physician Assistant | DX: Z01.818 Encounter for other preprocedural examination (principal); M75.101 Unspecified rotator cuff tear or rupture of right shoulder, not specified as traumatic; E11.9 Type 2 diabetes mellitus without complications | CPT/HCPCS: 99212 ==

== ENCOUNTER 2024-01-14 09:19 | Day surgery (SDC) | payer OTHER, SELFPAY ==
[2024-01-12 11:47] VITALS: BMI 25.1
--- NOTE | 2024-01-13 10:21 | HO.ANESPROP2 ---
HPI - Anesthesia Eval Consult details Narrative: 63yo M for Arthroscopic Rotator Cuff Repair Anesthesia Pre-Procedure Meds Is the patient on any of the following meds?: GLP1/DPP4 and SGLT2 Inhib PMFSH Active Problems Active Problems: All Active Problems S/P right rotator cuff repair (Acute) Poorly controlled type 2 diabetes mellitus (Acute) Left inguinal hernia (Acute) Rotator cuff tear, right (Acute) Rotator cuff dysfunction (Acute) Diabetes mellitus (Acute) Internal derangement of right shoulder (Acute) Erectile dysfunction associated with type 2 diabetes mellitus (Acute) BPH w urinary obs/LUTS (Acute) Phimosis (Acute) Diabetes mellitus (Acute) Tubular adenoma (Acute) Helicobacter pylori (H. pylori) (Acute) Gastroesophageal reflux disease (Acute) Past Medical History Medical History (Updated 08/22/23 @ 14:50 by Sudhakar Freeman MD) Tubular adenoma Helicobacter pylori (H. pylori) Gastroesophageal reflux disease HTN (hypertension) Hypercholesteremia Diabetes mellitus Family History Family History Father Family history of high blood pressure Mother History of high blood pressure Family history of problems with anesthesia: No Surgical History Surgical History (Updated 01/12/24 @ 11:29 by Dea Abdul RN) Hx of circumcision History of esophagogastroduodenoscopy (EGD) History of right inguinal hernia repair History of colonoscopy History of Problems with Anesthesia: No Social History Social History Are you a primary director day care center to a significant other at home: No Do you presently have visiting nurse or other home services: No Alcohol intake: current Alcohol intake frequency: does not drink Patient Tobacco Use Status: Never used Tobacco Meds Allergies Allergy/AdvReac Type Severity Reaction Status Date / Time No Known Allergies Allergy Verified 07/03/23 11:35 Home Medications ?Medication ?Instructions ?Recorded ?Confirmed ?Last Taken ?Type atorvastatin 80 mg tablet 80 mg PO DAILY 02/16/20 01/12/24 01/13/24 History glyburide 5 mg tablet 5 mg PO DAILY 02/16/20 01/12/24 01/13/24 History lisinopril 10 mg tablet 10 mg PO DAILY 02/16/20 01/12/24 01/13/24 History albuterol sulfate 90 mcg/actuation 2 puff inhalation QID PRN 08/24/21 06/06/22 Unknown History aerosol inhaler (Ventolin HFA) Shortness Of Breath Or Wheezing blood-glucose meter (FreeStyle #1 ea 08/24/21 08/24/21 Unknown History [place] Lite kit) lancets 33 gauge (TRUEplus Lancets) #100 ea 08/24/21 08/24/21 Unknown History empagliflozin 25 mg tablet 1 tab QAM 06/06/22 01/12/24 01/07/24 History (Jardiance) dulaglutide 1.5 mg/0.5 mL 1.5 mg subcut QWEEK 01/12/24 01/12/24 01/07/24 History subcutaneous pen injector (Trulicity) metformin 1,000 mg tablet 1,000 mg PO BID 01/12/24 01/12/24 01/13/24 History Exam Height,Weight and Vital Signs: Height 5 ft 7 in Weight 72.575 kg Pertinent Lab Results Pertinent Lab Results: Laboratory Tests 11/05/23 Unknown WBC 6.4 Hgb 15.2 Hct 43.4 Plt Count 135 L Sodium 139 Potassium 3.9 Chloride 105 Carbon Dioxide 24 BUN 25 H Creatinine 0.76 Assessment and Plan Assessment Anesthesia Assessment: Chart Reviewed Final Anesthetic Review Family History of Problems with Anesthesia: No History of Problems with Anesthesia: No
[2024-01-14] VITALS (8 sets, daily range): BP systolic 114–155; BP diastolic 67–83; PULSE 55–74; RESP 14–18; TEMP 36.2–36.9; O2SAT 93–100
--- NOTE | 2024-01-14 09:25 | ECG_ITS ---
Test Reason : HTN, DM Blood Pressure : / mmHG Vent. Rate : 055 BPM Atrial Rate : 055 BPM P-R Int : 148 ms QRS Dur : 090 ms QT Int : 434 ms P-R-T Axes : 029 -16 014 degrees QTc Int : 415 ms Sinus bradycardia Otherwise normal ECG When compared with ECG of 30-NOV-2018 15:56, Premature ventricular complexes are no longer Present Referred By: Meera Arrington Electronically Signed By:YEIMY AKHTAR
--- NOTE | 2024-01-14 09:28 | MHC.SHP ---
Pre-Procedural Eval Section A - 24 Hr Update-Section A only Date of Service: 01/14/24 The patient is an INPATIENT: No Changes since office visit: No Cold of Flu in the past 2 weeks, No New Medical Problems, No Changes in Medication and No Patient answered all questions The patient has been examined within 24 hours of the surgical procedure. The History & Physical has been completed within 30 days and I have reviewed it.: Yes Section B - Complete if H&P > 30 days Chief Complaint: Unspecified rotator cuff tear or rupture of right Allergies: Allergies Allergy/AdvReac Type Severity Reaction Status Date / Time No Known Allergies Allergy Verified 07/03/23 11:35 Plan I have reviewed the history and physical and performed a pertinent physical examination on my patient. No changes have occurred unless specified. Time Spent With Patient Time: Total time managing care of this patient today ____ minutes.
[2024-01-14 09:45] LABS: Glucose, Whole Blood 200 mg/dL (60-115)
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
[2024-01-14] MEDS: Lactated Ringers 1,000 ML 100 ML IVCONT (09:53)
--- NOTE | 2024-01-14 11:37 | P.BOP_ITS ---
Brief Operative Note Date of Service: 01/14/24 Pre-op diagnosis: right RTC tear Post-op diagnosis: same Procedure: right RTC repair Implants: Hope and Nephew medial row double loaded 4.75 x2 and Knotless 5.0 x 2 Surgeon: Sudhakar Freeman MD Anesthesia: GETA and regional Was an Senior Clinical Project Manager used for this Procedure?: Yes Senior Clinical Project Manager: Manisha Sims Estimated blood loss (mL): 20 IV fluids (mL): 750 Pathology: none sent Condition: stable Disposition: PACU
--- NOTE | 2024-01-14 15:15 | W.PM.OPN ---
Operative Note Operative Note Date of Service: 01/14/24 Narrative: Date of Service: 01/14/24 Pre-op diagnosis: right RTC tear Post-op diagnosis: same Procedure: right RTC repair Implants: Hope and Nephew medial row double loaded 4.75 x2 and Knotless 5.0 x 2 Surgeon: Sudhakar Freeman MD Anesthesia: GETA and regional Was an Ladies Suit Operator used for this Procedure?: Yes Ladies Suit Operator: Manisha Sims Estimated blood loss (mL): 20 IV fluids (mL): 750 Pathology: none sent Condition: stable Disposition: PACU Procedure in detail: Patient was brought to the operating room and placed the the beach chair position. All bony prominences were well padded and the limb was prepped and draped in standard sterile fashion. A time out was called to identify proper site, proper procedure and proper surgeon. IV antibiotics per weight were administered. I began by making a posterolateral stab incision with a 15 blade. A blunt trochar was placed into the glenohumeral joint and I insufflated the joint with saline and a 30 degree arthroscope was placed. I established an outside- in anterior portal just distal to the biceps tendon. I then began my inspection of the glenohumeral joint. There was a small degenerative SLAP tear at the biceps anchor ( Type 1). There were minimal cartilage changes at the inferior glenoid without humeral head changes. There was a full thickness undersurface RTC tear. The subcapularis was intact. I debrided the loose cartilage of the glenoid and the degenerative labral tearing. I then removed the trochar and entered the subacromial space. 2 direct lateral portals were established and I performed a bursectomy. The cuff was then examined. There was a full thickness tear of the supra and infraspinatus with retraction. The tear was mobile. I placed two medial row double loaded anchors after using a tap just adjacent to the articular cartilage and then brought the suture limbs ( 8) through the medial cuff. I then debrided the bare area down to bleeding bone and, using a cross bridge configuration, brought 4 limbs to each of two lateral 5.0 anchors. This re-approximated the cuff anatomy anatomically. I performed a small (5mm) anterior subacromial decompression. Once I was satisfied with the repair final images were captured and I removed all instrumentation. Portals were closed with nylon. Patient was placed in an abduction sling, extubated and brought to the recovery room in stable condition. There were no known complications.
== END 2024-01-14 13:08 | disposition home or self-care (01) ==
LOC: HO.SSS 09:20
PROVIDERS: PCP Pediatrics; Visit Provider Orthopaedic Surgery
PROC: (CPT 29827; principal; 2024-01-14 13:00)
DX: M75.101 Unspecified rotator cuff tear or rupture of right shoulder, not specified as traumatic (principal); I10 Essential (primary) hypertension; E78.00 Pure hypercholesterolemia, unspecified; E11.9 Type 2 diabetes mellitus without complications; K21.9 Gastro-esophageal reflux disease without esophagitis; K40.90 Unilateral inguinal hernia, without obstruction or gangrene, not specified as recurrent; Z79.84 Long term (current) use of oral hypoglycemic drugs; Z79.85 Long-term (current) use of injectable non-insulin antidiabetic drugs; Z79.899 Other long term (current) drug therapy; Z98.890 Other specified postprocedural states
CPT/HCPCS: 29827; 29826; 82947; 93005; C1713; J0131; J0171; J0665; J0690; J1100; J2250; J2405; J2704; J3010

== ENCOUNTER → 2024-01-14 09:19 | Outpatient (BNV) | payer OTHER, SELFPAY | PROVIDERS: PCP Pediatrics; Visit Provider Orthopaedic Surgery | DX: M75.121 Complete rotator cuff tear or rupture of right shoulder, not specified as traumatic (principal) | CPT/HCPCS: 29827 ==

== ENCOUNTER 2024-01-22 14:10 | Outpatient (AMB) | payer OTHER, SELFPAY ==
--- NOTE | 2024-01-22 14:26 | MHC.OFFVIS ---
Intake Visit Reasons: PO RT RTC 01/14/24 NE Intake Note: Kenneth is a 63 year old male who presents today for a post op appointment s/p RT RTC 01/14/24 NE. Patient reports that the pain is getting better, but he has been having trouble sleeping. Patient also stated that he will be starting PT on this coming friday. Allergies No Known Allergies Allergy (Verified 01/22/24 14:31) HPI HPI PO RT RTC 01/14/24 NE: Details: 63-year-old right hand dominant male, who is Icelandic speaking, who presents in the office today for a 8 days status post arthroscopic right rotator cuff repair which was performed on 01/14/[address] Freeman. While in the office today, the patient reports improvement in his right shoulder pain; however, he has been experiencing difficulty sleeping. He is wearing a sling. [facility] Medical History (Updated 08/22/23 @ 14:50 by Sudhakar Freeman MD) Tubular adenoma Helicobacter pylori (H. pylori) Gastroesophageal reflux disease HTN (hypertension) Hypercholesteremia Diabetes mellitus Surgical History (Updated 01/12/24 @ 11:29 by Dea Abdul RN) Hx of circumcision History of esophagogastroduodenoscopy (EGD) History of right inguinal hernia repair History of colonoscopy Family History Father Family history of high blood pressure Mother History of high blood pressure Social History Are you a primary career and guidance counselor to a significant other at home: No Do you presently have visiting nurse or other home services: No Alcohol intake: current Alcohol intake frequency: does not drink Patient Tobacco Use Status: Never used Tobacco Review of Systems Const All systems reviewed & are unremarkable except as noted in HPI and below Physical Exam Const General: cooperative, healthy appearing and no acute distress Resp Effort & Inspection: normal respiratory effort and able to speak in complete sentences Cardio Rate: regular rate Peripheral pulses: Peripheral pulses 2+ throughout GI Palpation (GI): Soft to palpation Skin Lesions: no lesions Rashes: no rashes Extrem Other: Right shoulder: Incision sites are clean, dry, and intact. Sutures intact. No surrounding erythema or drainage. No signs of infection. forward flexion and abduction to 45 degrees. External rotation to neutral. NVI. Assessment & Plan Assessment & Plan (1) S/P right rotator cuff repair: Code(s): Z98.890 - Other specified postprocedural states Category: Surgical Plan Mr. Jorge is a 63-year-old right hand dominant male, who is Icelandic speaking, who presents in the office today for a 8 days status post arthroscopic right rotator cuff repair which was performed on 01/14/[address] Freeman. While in the office today, the patient reports improvement in his right shoulder pain; however, he has been experiencing difficulty sleeping. He is wearing a sling. Sutures were removed, and steri-strips were applied. He will remain in the sling for 6 weeks. I have placed a referral to physical therapy. Follow-up will be in [address] Freeman, or sooner if needed. Patient Instructions: Scribed by Judy Fonseca medical claims assistant, for Manisha Sims PA-C on 01/22/24 at 2:57 pm EST. Coding Level of Care Code Global (55707) Diagnoses S/P right rotator cuff repair Z98.890
== END 2024-01-22 15:11 | disposition home or self-care (01) ==
PROVIDERS: PCP Pediatrics; Visit Provider Physician Assistant
DX: Z98.890 Other specified postprocedural states (principal)
CPT/HCPCS: 99024

== ENCOUNTER → 2024-01-22 14:10 | Outpatient (BNVA) | payer OTHER, SELFPAY | PROVIDERS: PCP Pediatrics; Visit Provider Physician Assistant | DX: Z47.89 Encounter for other orthopedic aftercare (principal); Z98.890 Other specified postprocedural states | CPT/HCPCS: 99212 ==

== ENCOUNTER 2024-02-19 12:41 | Outpatient (AMB) | payer OTHER, SELFPAY ==
--- NOTE | 2024-02-19 12:44 | MHC.OFFVIS ---
Intake Visit Reasons: PO RT RTC 01/14/24 NE-4 WK follow up Intake Note: Kenneth is a 63 year old male who presents today for a post op appointment s/p RT RTC 01/14/24 NE. Allergies No Known Allergies Allergy (Verified 01/22/24 14:31) HPI HPI PO RT RTC 01/14/24 NE-4 WK follow up: Details: Kenneth is a 63 year old male who presents today for a post op appointment s/p RT RTC 01/14/24 NE. PFSH Medical History (Updated 08/22/23 @ 14:50 by Sudhakar Freeman MD) Tubular adenoma Helicobacter pylori (H. pylori) Gastroesophageal reflux disease HTN (hypertension) Hypercholesteremia Diabetes mellitus Surgical History (Updated 01/12/24 @ 11:29 by Dea Abdul RN) Hx of circumcision History of esophagogastroduodenoscopy (EGD) History of right inguinal hernia repair History of colonoscopy Family History Father Family history of high blood pressure Mother History of high blood pressure Social History Are you a primary intensive care specialist to a significant other at home: No Do you presently have visiting nurse or other home services: No Alcohol intake: current Alcohol intake frequency: does not drink Patient Tobacco Use Status: Never used Tobacco Physical Exam Extrem Other: portals c/d/i ER to 40 Passive abd to 90 Assessment & Plan Assessment & Plan (1) S/P right rotator cuff repair: Code(s): Z98.890 - Other specified postprocedural states Category: Surgical Plan: Continue PT. May discontinue sling. Follow up 6 weeks. Coding Level of Care Code Global (20474) Diagnoses S/P right rotator cuff repair Z98.890
== END 2024-02-19 13:13 | disposition home or self-care (01) ==
LOC: HO.HOS 12:42
PROVIDERS: PCP Pediatrics; Visit Provider Orthopaedic Surgery
DX: Z98.890 Other specified postprocedural states (principal)
CPT/HCPCS: 99024

== ENCOUNTER → 2024-02-19 12:41 | Outpatient (BNVA) | payer OTHER, SELFPAY | PROVIDERS: PCP Pediatrics; Visit Provider Orthopaedic Surgery | DX: Z47.89 Encounter for other orthopedic aftercare (principal); Z98.890 Other specified postprocedural states | CPT/HCPCS: 99212 ==

== ENCOUNTER 2024-04-01 12:18 | Outpatient (AMB) | payer OTHER, SELFPAY ==
--- NOTE | 2024-04-01 12:21 | A.OFFVIS_ITS ---
Intake Visit Reasons: PO RT RTC 01/14/24 NE-4 WK follow up Intake Note: Kenneth is a 63 year old right hand dominant male who presents today for a post operative appointment s/p RT RTC 01/14/24 NE. Patient reports that he has continued pain in the right shoulder that radiates down to the bicep. Increased pain and limited ROM with above shoulder height motions. He continues to work with PT, who is doing K Tape which helps a little. Takes Ibuprofen PRN pain but tried to avoid taking pills. Allergies No Known Allergies Allergy (Verified 04/01/24 12:21) HPI HPI PO RT RTC 01/14/24 NE-4 WK follow up: Details: Kenneth is a 63 year old right hand dominant male who presents today for a post operative appointment s/p RT RTC 01/14/24 NE. Patient reports that he has continued pain in the right shoulder that radiates down to the bicep. Increased pain and limited ROM with above shoulder height motions. He continues to work with PT, who is doing K Tape which helps a little. Takes Ibuprofen PRN pain but tried to avoid taking pills. [facility] Medical History Tubular adenoma Helicobacter pylori (H. pylori) Gastroesophageal reflux disease HTN (hypertension) Hypercholesteremia Diabetes mellitus Surgical History Hx of circumcision History of esophagogastroduodenoscopy (EGD) History of right inguinal hernia repair History of colonoscopy Family History Father Family history of high blood pressure Mother History of high blood pressure Social History Are you a primary summer child caregiver to a significant other at home: No Do you presently have visiting nurse or other home services: No Alcohol intake: current Alcohol intake frequency: does not drink Patient Tobacco Use Status: Never used Tobacco Physical Exam Extrem Other: 70 degrees of active abduction without scapular recruitment. Passive external rotation to 25 degrees. Negative empty can. Assessment & Plan Assessment & Plan (1) S/P right rotator cuff repair: Code(s): Z98.890 - Other specified postprocedural states Category: Surgical Plan: Continue gentle range of motion. No heavy lifting. Follow up 3 months. Coding Level of Care Code Global (31165) Diagnoses S/P right rotator cuff repair Z98.890
== END 2024-04-01 12:45 | disposition home or self-care (01) ==
PROVIDERS: PCP Pediatrics; Visit Provider Orthopaedic Surgery
DX: Z98.890 Other specified postprocedural states (principal)
CPT/HCPCS: 99024

== ENCOUNTER → 2024-04-01 12:18 | Outpatient (BNVA) | payer OTHER, SELFPAY | PROVIDERS: PCP Pediatrics; Visit Provider Orthopaedic Surgery | DX: Z47.89 Encounter for other orthopedic aftercare (principal); Z98.890 Other specified postprocedural states | CPT/HCPCS: 99212 ==

== ENCOUNTER 2024-04-20 07:00 | Outpatient (RCR) | payer OTHER, SELFPAY ==
--- NOTE | 2024-01-26 13:39 | MHC.PT.EP ---
[facility] [place] Office [place] Office [place] Office [address] Elicia Belcher [address] [phone] F: [phone] F: [phone] F: [phone] F: [phone] Physical Therapy Plan of Care Date of Evaluation: 01/26/24 Date of Surgery: 01/14/24 Diagnosis: This is a 63 yo male presenting to skilled PT with a script for s/p R RTC repair on 01/13. Assessment: This is a 63 yo male presenting to skilled PT with a script for s/p R RTC repair on 01/13. Patient's repair was done by Dr. Freeman. At the last office visit on 01/22/24 sutures were removed and steri-strips were applied. His original injury occurred 2 years ago when he had to reach out and grasp onto something. He was instructed to remain in the sling for 6 weeks and follow up with ortho in 4 weeks. Pain is located the lateral arm and ACJ/UT. Pain is gripping in nature. Pain increases with sleeping and trying to use his arm. Assessment reveals pain that ranges from up to a 6/10 at the worst. Patient demos decreased R shoulder and cervical ROM, strength of R shoulder, TTP at surrounding GHJ soft tissues and incisions, UT and impaired posture with forward head and rounded shoulders expected s/p large RTC repair. Based on functional limitations, impaired QOL and pain tolerance patient is a good candidate for skilled PT 2x/wk for 8wks. Frequency and Duration: The patient will be seen 2x/wk for 7 wks Short Term Goals: (In 2 weeks) Demo I with HEP Improve shoulder PROM by at least 20 degs in all directions Patient will understand his post op precautions, safety with healing time frames and postural education without cues needed from PT [employer] Feeder Goals: (in 8 wks) Improve shoulder nonpainful AROM to almost near equal B Demo at least 4/5 grade improvement in MMT for shoulder Improve SPADI by at least 10 points Improve overall functional QOL by at least 75% Treatment Plan: Modalities to reduce pain, spasms and effusion. Manual therapy to restore motion and function. Therapeutic exercise to improve strength and flexibility. Neuromuscular re-education for posture and balance. Therapeutic activities to return to functional activities of daily living. Electronically signed by: Christen Alvarez PT Please sign and return to therapist. Thank you for your referral.
--- NOTE | 2024-05-19 10:45 | MHC.PT.DC ---
[facility] [place] Office [place] Office [place] Office [address] Elicia Belcher [address] [phone] F: [phone] F: [phone] F: [phone] F: [phone] Physical Therapy Discharge Report Diagnosis: This is a 63 yo male presenting to skilled PT with a script for s/p R RTC repair on 01/13. Date of Surgery: 01/14/24 Date of Evaluation: 01/26/24 Date of Discharge: 05/19/24 Treatments to Date: 19 Cancellations to Date: 0 No Shows to Date: 0 Discharge Status: Achieved Goals Improved Function Independent with HEP Patient Elected to Stop Discharge Summary: 04/20: Patient has come to 19 visits of PT. He is still limited in his ROM and strength but has improved since eval. He is still limited by pain. He will be going to [place] for a month and will be DC'd. He has a good HEP to continue on his own and it was recommended he talk with his MD about his continuation of pain. At this time he no longer requires skilled PT, DC to HEP. Electronically signed by: Christen Alvarez, PT Please sign and return to therapist. Thank you for your referral.
== END 2024-05-19 10:46 | disposition home or self-care (01) ==
LOC: HO.PTCHIC 07:00
PROVIDERS: PCP Pediatrics; Visit Provider Physician Assistant
DX: Z98.890 Other specified postprocedural states (principal)
CPT/HCPCS: 97110; 97140; 97162; 97164

== ENCOUNTER 2024-04-28 12:59 | Outpatient (REF) | payer OTHER, SELFPAY ==
[2024-05-01 15:13] LABS: TS Negative Control Passed; TS Panel A 0; TS Panel B 0; TS Positive Control Passed; TSpotTB Negative (Negative)
== END 2024-04-28 13:00 | disposition home or self-care (01) ==
LOC: HO.CHCLDS 12:59
PROVIDERS: Visit Provider Pediatrics
DX: Z13.9 Encounter for screening, unspecified (principal); Z11.7 Encounter for testing for latent tuberculosis infection
CPT/HCPCS: 36415; 86481

== ENCOUNTER 2024-05-03 12:58 | Outpatient (AMB) | payer OTHER, SELFPAY ==
--- NOTE | 2024-05-03 12:59 | A.OFFVIS_ITS ---
Vital Signs 05/03/24 13:05 Height 5 ft 7 in Weight 162 lb BMI 25.4 Intake Visit Reasons: Hernia Intake Note: This patient presents fro left inguinal hernia. Pt c/o; reports pain only when walking, reports bulge, left groin, reports no changes in bowel habits. Wrapper Sorter Required: No Accompanied by: Self / Same As Patient Allergies No Known Allergies Allergy (Verified 05/03/24 13:06) HPI HPI Hernia: Details: 64-year-old male referred for a left inguinal hernia. He says he has noticed this reducible mass on the left groin for about 6 years. He says this is becoming more uncomfortable. He denies any GI complaints He does have a history of a right inguinal hernia repair about 20 years ago. [facility] Medical History Tubular adenoma Helicobacter pylori (H. pylori) Gastroesophageal reflux disease HTN (hypertension) Hypercholesteremia Diabetes mellitus Surgical History Hx of circumcision History of esophagogastroduodenoscopy (EGD) History of right inguinal hernia repair History of colonoscopy Family History Father Family history of high blood pressure Mother History of high blood pressure Social History Are you a primary career based intervention coordinator to a significant other at home: No Do you presently have visiting nurse or other home services: No Alcohol intake: current Alcohol intake frequency: does not drink Patient Tobacco Use Status: Never used Tobacco Review of Systems Const Denies chills and Denies fever(s) Card Denies chest pain, Denies dyspnea and Denies dyspnea on exertion Resp Denies cough, Denies dyspnea and Denies dyspnea on exertion GI Denies hematochezia and Denies change in bowel habits Denies hematuria and Denies difficulty urinating Musc Denies back pain and Denies limited range of motion Neuro Denies focal weakness and Denies convulsions Psych Denies depression and Denies mood swings Physical Exam Vital Signs: BMI result Body Mass Index 25.4 Const General: comfortable and no acute distress Orientation/consciousness: patient oriented x3 Neck Neck: Yes no lymphadenopathy Resp Auscultation: clear to auscultation bilaterally Cardio Rhythm: regular rhythm GI Other: Left inguinal hernia, reducible Palpation (GI): Soft to palpation, nontender and no guarding Neuro General: patient oriented x3 Assessment & Plan Assessment & Plan (1) Left inguinal hernia: Code(s): K40.90 - Unilateral inguinal hernia, without obstruction or gangrene, not specified as recurrent Category: Medical Plan: He has a reducible left inguinal hernia. He describes worsening discomfort and wants to proceed with repair I had a long discussion with him about the technique of repair with mesh. I reviewed the risks including but not limited to bleeding, infections, recurrence, injury to other organs including bowel, vas deferens and testicle, postop pain, as well as the benefits and alternatives He understands and wants to proceed. Coding Level of Care Code New Pt Level 3 (99106) Diagnoses Left inguinal hernia K40.90
[2024-05-03 13:05] VITALS: BMI 25.4
== END 2024-05-03 13:18 | disposition home or self-care (01) ==
PROVIDERS: PCP Pediatrics; Visit Provider Surgery
DX: K40.90 Unilateral inguinal hernia, without obstruction or gangrene, not specified as recurrent (principal)
CPT/HCPCS: 99203

== ENCOUNTER → 2024-05-03 12:58 | Outpatient (BNVA) | payer OTHER, SELFPAY | PROVIDERS: PCP Pediatrics; Visit Provider Surgery | DX: K40.90 Unilateral inguinal hernia, without obstruction or gangrene, not specified as recurrent (principal) | CPT/HCPCS: 99202 ==

== ENCOUNTER 2024-06-25 09:34 | Day surgery (SDC) | payer OTHER, SELFPAY ==
[2024-06-23 16:04] VITALS: BMI 23.8
--- OUTSIDE RECORDS SUMMARY | 2024-06-23 16:19 | XMS_ITS | Encounter Summary ---
Author Organization [facility] [employer] [facility] Address [address] [place] [address] 7 [place] [address] Care Team Providers Care Auctioneer Art Name Role Phone Melisa Eisenberg MD Primary Care Provider [phone] Reason for Visit * Reason Comments Med Refill Encounter Details Date Type Department Care Team ([facility] Contact Info) Description 11/27/2022 Refill [facility] MED & PEDS [address] [place] [address] Melisa Eisenberg MD [address] [place] [address] Social History Tobacco Use Types Packs/Day Years Used Date Smoking Tobacco: Never Passive Smoke Exposure: Never Smokeless Tobacco: Never Depression Answer Date Recorded Patient Health Questionnaire-9 Score 0 07/26/2022 Depression Answer Date Recorded Patient Health Questionnaire-2 Score 0 07/26/2022 Sex and Gender Information Value Date Recorded Sex Assigned at Male 02/18/2022 10:20 AM EDT Legal Sex Male 10:20 AM EDT Gender Identity Male 02/18/2022 10:20 AM EDT Sexual Orientation Straight 02/18/2022 10 :20 AM EDT documented as of this encounter Plan of Treatment Not on file documented as of this encounter Visit Diagnoses Not on filedocumented in this encounter Additional Health Concerns Assessment Noted Time PHQ-9 Depression Total Score: 0 07/27/19 23 10:21 AM EDT documented as of this encounter Care Teams Auctioneer Art Relationship Specialty Start Date End Date Melisa Eisenberg MD [address] [place] [address] PCP - General Family Medicine 04/21/18 documented as of this encounter
--- OUTSIDE RECORDS SUMMARY | 2024-06-23 16:19 | XMS_ITS | Encounter Summary ---
Author Organization [employer] Address [address] [facility] [address] [place] [address] Care Team Providers Care Internal Combustion Engine Subassembler Name Role Phone Melisa Eisenberg MD Primary Care Provider [phone] Reason for Visit * Reason Comments Med Refill Encounter Details Date Type Department Care Team ([facility] Contact Info) Description 09/27/2023 Refill [facility] MED & PEDS [address] [place], [place] [id number] Melisa Eisenberg MD [address] [place] [address] Type 2 diabetes mellitus without complication, without long-term current use of insulin ([facility]) Social History Tobacco Use Types Packs/Day Years Used Date Smoking Tobacco: Never Passive Smoke Exposure: Never Smokeless Tobacco: Never Depression Answer Date Recorded Patient Health Questionnaire-9 Score 1 08/19/2023 Patient Health Questionnaire-9 Score 1 08/19/2023 Last PHQ-9: Questionnaire Data Not on file 0 08/19/2023 Housing Stability Answer Date Recorded What is your housing situation today? I have herbie marshall 08/19/[address] you li ve. Do you have problems with any of the following? None of the above 08/19/2023 Food Insecurity Answer Date Recorded Within the past 12 months, y ou worried that your food would run out before you got money to buy more: Never True 08/19/2023 Within the past 12 months,th e food you bought just didn't last and you didn't have enough money to get more: Never True Transportation Answer Date Recorded In the past 12 months, has l ack of transportation kept you from medical appts, meetings, work or from getting things needed for daily living? No 08/19/2023 Utilities Answer Date Recorded In the past 12 months, has t he electric, gas, oil or water company threatened to shut off services in your home? No 08/19/2023 Depression Answer Date Recorded Patient Health Questionnaire-2 Score 0 08/19/2023 Sex and Gender Information Value Date Recorded Sex Assigned at Male 02/18/2022 10:20 AM EDT Legal Sex Male 10:20 AM EDT Gender Identity Male 02/18/2022 10:20 AM EDT Sexual Orientation Straight 02/18/2022 10 :20 AM EDT documented as of this encounter Plan of Treatment Not on file documented as of this encounter Visit Diagnoses Diagnosis Type 2 diabetes mellitus without complication, without long-term current use of insulin ([facility]) documented in this encounter Additional Health Concerns Assessment Noted Time PHQ-9 Depression Total Score: 1 08/19/19 24 9:26 AM EDT documented as of this encounter Care Teams Internal Combustion Engine Subassembler Relationship Specialty Start Date End Date Melisa Eisenberg MD [address] [place] [id number] PCP - General Family Medicine 04/21/18 documented as of this encounter
--- OUTSIDE RECORDS SUMMARY | 2024-06-23 16:19 | XMS_ITS | Encounter Summary ---
Author Organization [employer] Address [address] [facility] [address] [place] [address] Care Team Providers Care Dip Lube Operator Name Role Phone Melisa Eisenberg MD Primary Care Provider [phone] Reason for Visit * Reason Comments Dental Exam UR cracked tooth Encounter Details Date Type Department Care Team ([facility] Contact Info) Description 02/04/2024 3:00 PM EDT Office Visit [facility] [address] [place] [address] Lilian Ivy [address] [place] [address] Social History Tobacco Use Types Packs/Day Years [...] AM EDT documented as of this encounter Progress Notes * Lilian Ivy - 02/04/2024 3:00 PM EDT Dental procedures in this visit D0140 - LIMITED ORAL EVALUATION - PROBLEM FOCUSED (Completed) Service provider: Lilian Ivy Billing provider: Lilian Ivy [id number] - BITEWING - SINGLE RADIOGRAPHIC IMAGE (Completed) Service provider: Lilian Ivy Billing provider: Lilian Ivy [id number] - INTRAORAL - PERIAPICAL FIRST RADIOGRAPHIC IMAGE (Completed) Service provider: Lilian Ivy Billing provider: Lilian Ivy [id number] - PALLIATIVE (EMERGENCY) TREATMENT OF DENTAL PAIN - MINOR PROCEDURE (Completed) Service provider: Lilian Ivy Billing provider: Lilian Ivy Patient ID: Kenneth Jorge is a 63 y.o. male. Time Out: Timeout Date: 02/04/24 (limited broken tooth), Timeout Time: 1458 Location: [facility] Tooth: #2 Procedure: Exam and X-rays Verified the above with patient, assistant pastry chef, and provider. Confirmed via patient's chart, intraorally and by radiographs. Labor Operator: not applicable Chief Complaint Patient presents with Dental Exam UR cracked tooth Medical Hx: Vitals: There were no vitals taken for this visit. Past Medical History: Diagnosis Date Diabetes mellitus ([facility]) Hx of rotator cuff surgery right shoulder Medications: Outpatient Encounter Medications as of 02/04/2024 Medication Sig Dispense Refill Alcohol Sheets (Alcoh-Wipe) sheet Test daily before all meals/snacks and once before bedtime. 1 each 0 aspirin 81 MG chewable tablet Chew 1 tablet at bed time. atorvastatin (Lipitor) 80 MG tablet TAKE ONE TABLET DAILY 30 tablet 5 Blood Glucose Calibration (OT ULTRA/FASTTK CNTRL SOLN) solution Glucose control solution provides an easy way to ensure accurate blood glucose testing. 1 each 0 Blood Glucose Monitoring Suppl (FreeStyle Lite) device Inject under the skin 2 times daily. 1 each 0 clarithromycin (Biaxin) 500 MG tablet Take 1 tablet (500 mg) by mouth 2 times daily. 28 tablet 0 dulaglutide (Trulicity) 1.5 MG/0.5ML solution pen-injector Inject 1.5 mg under the skin 1 (one) time per week. 4 pen 3 dulaglutide (Trulicity) 1.5 MG/0.5ML solution pen-injector Inject 1.5 mg under the skin 1 (one) time per week. 4 each 11 dulaglutide (Trulicity) 4.5 MG/0.5ML solution pen-injector Inject one pen (=4.5mg) subcutaneously once a week 2 mL 5 empagliflozin (Jardiance) 25 MG TAKE ONE TABLET BY MOUTH EVERY MORNING 90 tablet 1 famotidine (Pepcid) 20 MG tablet glyBURIDE (Diabeta) 5 MG tablet TAKE TWO TABLETS TWICE DAILY BEFORE MEALS 360 tablet 1 lisinopril 10 MG tablet TAKE ONE TABLET DAILY 90 tablet 1 lisinopril 10 MG tablet Take 1 Tablet by oral route once daily 90 tablet 2 metFORMIN (Glucophage) 1000 MG tablet Take 1 tablet (1,000 mg) by mouth with breakfast and with evening meal. 60 tablet 11 omega-3 (Fish Oil) 1000 MG capsule take 1 capsule orally bid pantoprazole (ProtoNix) 20 MG EC tablet Take 1 tab orally twice a day for 2 weeks 28 tablet 0 Proventil HFA 108 (90 Base) MCG/ACT inhaler INHALE TWO PUFFS FOUR TIMES DAILY NEEDED [DISCONTINUED] glyBURIDE (Diabeta) 5 MG tablet TAKE TWO TABLETS TWICE DAILY BEFORE MEALS 360 tablet1 No facility-administered encounter medications on file as of 02/04/2024. Subjective: Pain: not present Objective: Tooth: #2 Radiographs Taken: BW(s) and PA(s) Radiographic Findings: Fractured/Missing Filling Clinical Findings: Fractured filling #2 Swelling: not present Discussion: - Pt presented with chief complaint of broken tooth/filling of a tooth in upper right side. -Upon evaluation, existing amalgam filling fractured in #2. -Pt was advised that since fractured margin is deeper, filling can fracture again due to problems with isolation/matrix band placement, so existing remaining restorationist along with any decay will be excavated first and filled with temporary restorationist. If tooth remains asymptomatic, it can be replaced with permanent filling followed by crown since it's a huge restorationist. -But if tooth becomes symptomatic, there is a possibility of RCT/post+core+crown/extraction. -Pt wants to do only filling and no crown- pt aware of all the consequences if crown not done in future. -Pt understood, agreed and satisfied with our conversation. -All questions answered. Dismissed in good condition. Tx done today- -Tooth was irrigated thoroughly and cavit was placed today. NV: Existing amalgam restorationist excavation #2 and temporary restorationist/composite as needed. Medicare Contact Specialist: Kaylee Valladares Dentist: Dr.Harmanpreet Ivy, DMD documented in this encounter Plan of Treatment Scheduled Orders Name Type Priority Associated Diagnoses Orde r Schedule 2 MO 2 MO RESIN-BASED COMPOSITE - 2 SURFACES, POSTERIOR Dental Routine [address] arting 02/04/2024 documented as of this encounter Procedures Procedure Name Priority Date/Time Associated Diagnosis Comments PALLIATIVE (EMERGENCY) TREATMENT OF DENTAL PAIN - MINOR PROCEDURE Routine 02/04/2024 3:00 PM EDT LIMITED ORAL EVALUATION - PROBLEM FOCUSED Routine 02/04/2024 3:00 PM EDT INTRAORAL - PERIAPICAL FIRST RADIOGRAPHIC IMAGE Routine 02/04/2024 3:00 PM EDT BITEWING - SINGLE RADIOGRAPHIC IMAGE Routine 02/04/2024 3:00 PM EDT documented in this encounter Visit Diagnoses Not on filedocumented in this encounter Additional Health Concerns Assessment Noted Time PHQ-9 Depression Total Score: 1 08/19/19 24 9:26 AM EDT documented as of this encounter Care Teams Dip Lube Operator Relationship Specialty Start Date End Date Melisa Eisenberg MD [address] [place] [address] PCP - General Family Medicine 04/21/18 documented as of this encounter
--- OUTSIDE RECORDS SUMMARY | 2024-06-23 16:19 | XMS_ITS | Clinical Summary ---
Author Organization [employer] Address [address] [place] [address] 7[address] [place] [address] Care Team Providers Care Staff Radiologist Name Role Phone Melisa Eisenberg MD Primary Care Provider Allergies No known active allergies Medications omega-3 (Fish Oil) 1000 MG capsule take 1 capsule orally bid 022 Active Proventil HFA 108 (90 Base) MCG/ACT inhaler INHALE TWO PUFFS FOUR TIMES DAILY NEEDED 023 Active aspirin 81 MG chewable tablet Chew 1 tablet at bed time. Active Alcohol Sheets (Alcoh-Wipe) sheet Test daily before all meals/snacks and once before bedtime. 1 each 023 Active Blood Glucose Calibration (OT ULTRA/FASTTK CNTRL SOLN) solution Glucose control solution provides an easy way to ensure accurate blood glucose testing. 1 each 023 Active lisinopril 10 MG tabletIndicati ons:Type 2 diabetes mellitus without complication, without long-term current use of insulin ([facility]) TAKE ONE TABLET DAILY 90 tablet 1 023 Active Blood Glucose Monitoring Suppl (FreeStyle Lite) device Inject under the skin 2 times daily. 1 each 023 Active famotidine (Pepcid) 20 MG tablet 024 Active clarithromycin (Biaxin) 500 MG tablet Take 1 tablet (500 mg) by mouth 2 times daily. 28 tablet 024 Active metFORMIN (Glucophage) 1000 MG tablet Take 1 tablet (1,000 mg) by mouth with breakfast and with evening meal. 60 tablet 11 024 2024 Active atorvastatin (Lipitor) 80 MG tablet TAKE ONE TABLET DAILY 30 tablet 5 024 Active empagliflozin (Jardiance) 25 MGIndications: Type 2 diabetes mellitus without complication, without long-term current use of insulin ([facility]) TAKE ONE TABLET BY MOUTH EVERY MORNING 90 tablet 1 024 Active glyBURIDE (Diabeta) 5 MG tablet TAKE TWO TABLETS TWICE DAILY BEFORE MEALS 360 tablet 1 024 Active lisinopril 10 MG tablet Take 1 Tablet by oral route once daily 90 tablet 2 024 Active traZODone (Desyrel) 50 MG tabletIndicati ons:Other insomnia Take 1 tablet (50 mg) by mouth at bedtime. 30 tablet 3 024 Active pantoprazole (ProtoNix) 20 MG EC tablet TAKE ONE TABLET TWICE DAILY FOR TWO WEEKS 30 tablet 3 025 Active Trulicity 3 MG/0.5ML solution auto-injector INJECT ONE PEN (=3MG) SUBCUTANEOUSLY ONCE A WEEK 2 mL 3 025 Active Dulaglutide (Trulicity) 3 MG/0.5ML solution auto-injector Inject 3 mg under the skin 1 (one) time per week. 0.5 mL 3 024 2024 Discontinued Active Problems Problem Noted Date Diagnosed Date Nontraumatic tear of right rotator cuff 11/05/19 24 Diabetes mellitus without complication 2 Benign essential hypertension 07/09/2011 Pure hypercholesterolemia 07/09/2011 Asthma 07/09/2011 Encounters Date Type Department Care Team Description 06/10/[address] [facility] [address] [place] [address] Melisa Eisenberg MD 05/10/[address] [facility] [address] [place] [address] Melisa Eisenberg MD 04/28/[address] [facility] [address] [place] [address] Melisa Eisenberg MD [facility] Paperwork & TB Needed 04/28/2024 Orders Only [facility] [address] [place] [address] Melisa Eisenberg MD Encounter for health-related screening 04/22/2024 3:30 PM EST Office Visit [facility] [address] [place], [place] [phone] Marissa Farfan MD Left inguinal hernia (Primary Dx); Diabetes mellitus without complication ([facility]/HCC) 04/22/2024 Travel 04/20/2024 Telephone [facility] [address] [place], [place] [phone] Melisa Eisenberg MD 04/16/2024 Telephone [facility] [address] [place], [place] [phone] Melisa Eisenberg MD Referral from Last 3 Months Immunizations Name Administration Dates Next Due INFLUENZA VACCINE QUADRIVALE NT RECOMBINANT PRESERVATIVE FREE RIV4 01/14/2022 Influenza Injectable Quadriv alant Preservative Free IIV4 MDCK 12/30/2019 Influenza injectable quadriv alent IIV4 with preservative 01/20/2017,01/25/2016,01/02/2015 Influenza injectable quadriv alent preservative free 12/16/2022,12/30/2020,01/08/2019,12/29 Influenza, IIV3, injectable 12/17/2023,0 11/13/2012,01/12/2008,01/27,03/26/2006,01/29/2005 Influenza, Split (incl. debra fied surface antigen) 12/19/2011 Influenza, seasonal, injecta ble, preservative free 12/17/2023 Pfizer Covid-19 Vaccine 12+ 02/05/2024, Pneumococcal Polysaccharide PPSV23 10/11/2011, Tdap 01/15/2020 Zoster, Recombinant 01/14/2022,01/08/2019 Zoster, live 08/09/2015 Social History Tobacco Use Types Packs/Day Years Used Date Smoking Tobacco: Never Passive Smoke Exposure: Never Smokeless Tobacco: Never Tobacco Cessation:Counseling Given: Not Answered Depression Answer Date Recorded Patient Health Questionnaire-9 [...] Orientation Straight 02/18/2022 10 :20 AM EDT Last Filed Vital Signs Vital Sign Reading Time Taken Comments Blood Pressure 129/72 04/22/2024 3:49 PM EST Pulse 49 04/22/2024 3:49 PM EST Temperature 36.7 ??C (98 ??F) 04/22/2024 3:49 PM EST Respiratory Rate 20 04/22/2024 3:49 PM EST Oxygen Saturation 96% 04/22/2024 3:49 PM EST Inhaled Oxygen Concentration - - Weight 73.5 kg (162 lb) 04/22/2024 3:49 PM EST Height 170.2 cm (5' 7 ) 04/22/2024 3:49 PM EST Body Mass Index 25.37 04/22/2024 3:49 PM EST Plan of Treatment Health Maintenance Due Date Last Done Comments CT Colonography 1960 Dental X-Ray: Full Mouth 1960 FIT DNA/Cologuard 1960 FIT 1960 FOBT 1960 HIV Screening 1960 Sigmoidoscopy 1960 Eye Exam 02/09/1970 Hepatitis C Screening 02/09/1978 Pneumococcal Vaccine: 50+ Years (2 of 2 - PCV) 10/10/2012 10/11/2011, 03/26/2006 RSV Patients and Patients Aged 60 years or older (1 - Risk 60-74 years 1-dose series) 2020 Dental Oral Exam 01/11/2024 07/10/2023, , 11/08/2021, Additional history exists Dental Prophylaxis 01/11/2024 07/10/2023, 0 12/10/2022, 07/26/2021, Additional history exists Diabetes: Hemoglobin A1C 07/21/2024 025, 02/05/2024, 11/05/2023, Additional history exists Alcohol/Substance Use Screening 08/18/2024 08/19/2023 Depression Screening 08/18/2024 08/19/2023, 08/19/19 24 Diabetes: Foot Exam 08/18/2024 08/19/2023, 08/19/2023, 08/19/2023, Additional history exists SDOH Screening 08/18/2024 08/19/2023 Diabetes: Urine Protein Screening 11/04/2024 11/05/2023, 07/13/2021, 10/05/2020, Additional history exists Lipid Panel 11/04/2024 11/05/2023, 10/19, 07/26/2022, Additional history exists Dental X-Ray: Bitewings 02/04/2025 02/04/20 24, 07/10/2023, 12/10/2022, Additional history exists Tobacco Screening 04/22/2025 04/22/2024 Colonoscopy 06/25/2027 06/24/2022, 06/21/2022 Colorectal Cancer Screening 06/25/2027 DTaP/Tdap/Td Vaccines (2 - Td or Tdap) 01/14/2030 01/15/2020 Zoster Vaccines Completed 01/14/2022, 12/21, 08/09/2015 Influenza Vaccine Completed 12/17/2023, , 12/16/2022, Additional history exists COVID-19 Vaccine Completed 02/05/2024, , 10/12/2021, Additional history exists HIB Vaccines Aged Out No longer eligi ble based on patient's age to complete this topic HPV Vaccines Aged Out No longer eligi ble based on patient's age to complete this topic Hepatitis A Vaccines Aged Out No long er eligible based on patient's age to complete this topic Hepatitis B Vaccines Aged Out No long er eligible based on patient's age to complete this topic IPV Vaccines Aged Out No longer eligi ble based on patient's age to complete this topic Meningococcal Vaccine Aged Out No jennifer janie eligible based on patient's age to complete this topic RSV under 20 months Aged Out No longe r eligible based on patient's age to complete this topic Rotavirus Vaccines Aged Out No longer eligible based on patient's age to complete this topic Procedures Procedure Name Priority Date/Time Associated Diagnosis Comments T-SPOT(R).TB Routine 04/28/2024 1:01 PM EST Encounter for health-related screening POCT GLUCOSE Routine 04/22/2024 4:20 PM EST Diabetes mellitus without complication (CMS/HCC) POCT GLYCATED HEMOGLOBIN, TOTAL Routine 04/22/2024 4:19 PM EST Diabetes mellitus without complication (CMS/HCC) BITEWING - SINGLE RADIOGRAPHIC IMAGE Routine 02/04/2024 3:00 PM EDT ALBUMIN, RANDOM URINE W/CREATININE Routine 11/05/2023 10:20 AM EDT Benign essential hypertension Diabetes mellitus without complication (CMS/HCC) Pure hypercholesterolemia Routine medical exam LIPID PANEL, STANDARD Routine 11/05/2023 12:00 AM EDT Benign essential hypertension Diabetes mellitus without complication (CMS/HCC) Pure hypercholesterolemia Routine medical exam Full PROPHYLAXIS - ADULT Routine 07/10/2023 9:00 AM EDT PERIODIC ORAL EVALUATION - ESTABLISHED PATIENT Routine 07/10/2023 9:00 AM EDT COLONOSCOPY Routine 06/24/2022 from Last 3 Months or Most Recently Relevant to Health Maintenance Results * T-SPOT??.TB (04/28/2024 1:01 PM EST) T Spot TB Negative Negative [facility] Comment:A negative test resu lt does not exclude the possibilityof exposure to or infection with Mycobacteriumtuberculosis (M. tuberculosis). Patients with recentexposure to TB infected individuals exhibiting anegative T-SPOT.TB result should be considered forretesting within 6 weeks or if other relevant clinicalsymptoms indicate. Results from T-SPOT.TB testing mustbe used in conjunction with each individual'sepidemiological history, current medical status,and results of other diagnostic evaluations.The T-SPOT.TB test is qualitative and results arereported as positive, borderline, or negative, giventhat the test controls perform as expected. In linewith the Centers for Disease Control and Prevention's2010 recommendation to report quantitative measurementsalongside the qualitative result, the laboratoryprovides spot counts for informational purposes only.The T-SPOT.TB test should not be interpreted as aquantitative test. TS PANEL A 0 [facility] TS PANEL B 0 [facility] Negative Control Passed [facility] Positive Control Passed [facility] Comment:For additional infor mation, please refer tohttp://education.Memoright/faq/DXH357(This link is being provided for informational/educational purposes only.)THIS TEST WAS PERFORMED AT:[employer] [id number] [place] [address]CHIITYAMARIELA BENEDICT MD,PHD 04/28/2024 1:01 PM EST 04/28/2024 2:17 PM EST us Melisa Eisenberg MD LAB BLOOD ORDERABLES Final Re sult [facility] [address] [place] [address] [phone] * (ABNORMAL) POCT Glucose (04/22/2024 4:20 PM EST) Pathologist [facility] Glucose Blood, POC 73(A) 60 - 200 mg/dL QC Media Lot # [id number] Lot# Expiration Date [id number] Blood Capillary blood specimen / Unknown 04/22/2024 4:20 PM EST us Marissa Farfan MD POINT OF CARE TEST ENTER/ED IT ORDERABLES Final Result * (ABNORMAL) POCT HGB A1C (04/22/2024 4:19 PM EST) Hemoglobin A1C 7.6(A) 4.0 - 6.0 % QC Media Lot # [id number] Lot# Expiration Date [id number] Blood 04/22/2024 4:19 PM EST us Marissa Farfan MD POINT OF CARE TEST ENTER/ED IT ORDERABLES Final Result * Albumin, Random Urine W/Creatinine (11/05/2023 10:20 AM EDT) Creatinine, Urine 73.67 mg/dL [facility] Microalbumin Urine 15.0 mg/L [facility] Microalbum Creatinine Ratio Ur 20.3 <30 ug/mg cr [facility] Comment:Albumin/Creatinine R atio Reference Ranges: Normal: < 30 ug/mg creatinine Microalbuminuria: 30 - 300 ug/mg creatinineClinical Albuminuria: > 300 ug/mg creatinine Urine (Urine, Random) 11/05/2023 10:20 AM EDT 11/05/2023 2:03 PM EDT us Melisa Eisenberg MD LAB URINE ORDERABLES Final Re sult [facility] [address] [place] [address] [phone] * Lipid Panel, Standard (11/05/2023 12:00 AM EDT) Triglycerides 106 <150 mg/dL [facility] Comment:Desirable Triglyceri de: less than 150 mg/dLBorderline High Triglyceride 150-199 mg/dLHigh Triglyceride: 200-499 mg/dLVery High Triglyceride: greater than or equal to 5OO mg/dL Cholesterol 102 <200 mg/dL [facility] Comment:Desirable Cholestero l: less than 200 mg/dLBorderline High Cholesterol: 200-239 mg/dLHigh Cholesterol: greater than 239 mg/dL LDL Cholesterol Calculated 36 <100 mg/dL [facility] Comment:Desirable LDL: less than 100 mg/dLNear Optimal/Above Optimal LDL: 110- 129 mg/dLBorderline High LDL: 130-159 mg/dLHigh LDL: 160-189 mg/dLVery High LDL: greater than or equal to 190 mg/dL HDL Cholesterol 45 >40 mg/dL [facility] Comment:Desirable HDL: great er than 40 mg/dL Note: This HDL assay may give artificially low results in patients with liver disease. Blood Venous blood specimen / Unknown 11/05/2023 11/05/2023 Melisa Eisenberg MD LAB BLOOD ORDERABLES Final Re sult [facility] [address] [place] [address] [phone] * Colonoscopy (06/24/2022) Anatomical Region Laterality Modality Endoscopy Narrative 06/24/2022 Needs repeat in 5 years Melisa Eisenberg MD ENDOSCOPY PROCEDURE ORDERABLE S Final Result from Last 3 Months or Most Recently Relevant to Health Maintenance Insurance [facility] [place] [id number] LESVIA MARTINES [place] [facility] D[facility] - HSN PARTIAL (MEDICAID) LESVIA MARTINES LESVIA MARTINES * Guarantor: Ania, Kenneth Account Type Relation to Patient Date of Phone Billing Address Personal/Family Self [place] [id number] LESVIA MARTINES Care Teams Staff Radiologist Relationship Specialty Start Date End Date Melisa Eisenberg MD [address] [place] [address] LESVIA Martines PCP - General Family Medicine 04/21/18
--- OUTSIDE RECORDS SUMMARY | 2024-06-23 16:19 | XMS_ITS | Encounter Summary ---
Author Organization [facility] Address [address] [place] [address] [address]t [place] [address] Care Team Providers Care Moshgiach Name Role Phone Melisa Eisenberg MD Primary Care Provider Encounter Details Date Type Department Care Team (Latest Contact Info) Description 07/04/2020 Abstract [facility] CONVERSIONS Dental, Provider, DDS Social History Tobacco Use Types Packs/Day Years Used Date Smoking Tobacco: Never Assessed Sex and Gender Information Value Date Recorded Sex Assigned at Male 02/18/2022 10:20 AM EDT Legal Sex Male 10:20 AM EDT Gender Identity Male 02/18/2022 10:20 AM EDT Sexual Orientation Straight 02/18/2022 10 :20 AM EDT documented as of this encounter Plan of Treatment Not on file documented as of this encounter Visit Diagnoses Not on filedocumented in this encounter Care Teams Moshgiach Relationship Specialty Start Date End Date Melisa Eisenberg MD [address] [facility] [place] [address] PCP - General Family Medicine 04/21/18 documented as of this encounter
--- OUTSIDE RECORDS SUMMARY | 2024-06-23 16:19 | XMS_ITS | Encounter Summary ---
Author Organization [facility] Address [address] [place] [address] 7t [place] [address] Care Team Providers Care Oracle Forms Developer Name Role Phone Melisa Eisenberg MD Primary Care Provider [phone] Reason for Visit * Reason Comments Med Refill Encounter Details Date Type Department Care Team ([facility] st Contact Info) Description 05/09/2022 Refill [facility] [address] [place], [place] [phone] Raudel Palafox MD [address] [place] [address] Social History Tobacco Use Types Packs/Day Years [...] on filedocumented in this encounter Care Teams Oracle Forms Developer Relationship Specialty Start Date End Date Melisa Eisenberg MD [address] [place] [address] PCP - General Family Medicine 04/21/18 documented as of this encounter
--- OUTSIDE RECORDS SUMMARY | 2024-06-23 16:19 | XMS_ITS | Encounter Summary ---
Author Organization [facility] Address [address] [place] [address] 7t [place] [address] Care Team Providers Care Cyber Security Manager Name Role Phone Melisa Eisenberg MD Primary Care Provider [phone] Encounter Details Date Type Department Care Team (Latest Contact Info) Description 08/28/2018 Abstract [facility] CONVERSIONS Dental, Provider, DDS Social History [...] on filedocumented in this encounter Care Teams Cyber Security Manager Relationship Specialty Start Date End Date Melisa Eisenberg MD [address] [facility] [address] PCP - General Family Medicine 04/21/18 documented as of this encounter
--- OUTSIDE RECORDS SUMMARY | 2024-06-23 16:19 | XMS_ITS | Encounter Summary ---
Author Organization [employer] Address [address] [facility] [address]t [place] [address] Care Team Providers Care Ghost Writer Name Role Phone Melisa Eisenberg MD Primary Care Provider Reason for Visit * Reason Comments Med Refill Encounter Details Date Type Department Care Team ([facility] Contact Info) Description 06/10/2024 Refill [facility] [address] [place], [place] [phone] Melisa Eisenberg MD [address] [place] [address] Social History Tobacco Use Types Packs/Day Years [...] documented as of this encounter Care Teams Ghost Writer Relationship Specialty Start Date End Date Melisa Eisenberg MD [address] [place] [address] PCP - General Family Medicine 04/21/18 documented as of this encounter
--- OUTSIDE RECORDS SUMMARY | 2024-06-23 16:19 | XMS_ITS | Encounter Summary ---
Author Organization [employer] Address [address] [facility] 7t [place] [address] Care Team Providers Care Sheet Rocker Name Role Phone Melisa Eisenberg MD Primary Care Provider [phone] Reason for Visit * Reason Onset Date Comments Call Back Request 08/22/2023 Encounter Details Date Type Department Care Team ([facility] [place] Contact Info) Description 08/22/2023 Telephone [facility] [address] [place] [address] Melisa Eisenberg MD [address] [facility] [address] [place] [address] Call Back Request Social History Tobacco Use Types Packs/Day Years [...] AM EDT documented as of this encounter Miscellaneous Notes * Telephone Encounter - Gwen Lauren RN - 08/25/2023 2:32 PM EDT Returned call to [facility] at [phone]. LVM to return call to nurses. * Telephone Encounter - Barbara Goodman - 08/22/2023 1:09 PM EDT Tc from Yolanda at [facility] requesting a call back in regards Trulicity and Jardiance, Bette stated they usually stop those medications for surgery but they are requesting an OKAY from PCP. Secondary Education Professor also ask Yolanda if pt will need a Pre Op visit but she stated is not needed. Please contact Yolanda at [phone] optio (surgical) documented in this encounter Plan of Treatment Not on file documented as of this encounter Visit Diagnoses Not on filedocumented in this encounter Additional Health Concerns Assessment Noted Time PHQ-9 Depression Total Score: 1 08/19/19 24 9:26 AM EDT documented as of this encounter Care Teams Sheet Rocker Relationship Specialty Start Date End Date Melisa Eisenberg MD [address] [place] [address] PCP - General Family Medicine 04/21/18 documented as of this encounter
--- OUTSIDE RECORDS SUMMARY | 2024-06-23 16:19 | XMS_ITS | Encounter Summary ---
Author Organization [facility] Address [address] [facility] 7t [place] [address] Care Team Providers Care Unhairer Name Role Phone Melisa Eisenberg MD Primary Care Provider [phone] Encounter Details Date Type Department Care Team ([facility] st Contact Info) Description 02/27/2023 Abstract [facility] MED[facility]INE [address] [place] [address] Amira Mckeon Social History Tobacco Use Types Packs/Day Years Used Date Smoking Tobacco: Never Passive Smoke Exposure: Never Smokeless Tobacco: Never Depression Answer Date Recorded Patient Health Questionnaire-9 Score 0 07/26/2022 Housing Stability Answer Date Recorded What is your housing situation today? I have herbie marshall 02/06/[address] you li ve. Do you have problems with any of the following? None of the above 02/06/2023 Food Insecurity Answer Date Recorded Within the past 12 months, y ou worried that your food would run out before you got money to buy more: Never True 02/06/2023 Within the past 12 months,th e food you bought just didn't last and you didn't have enough money to get more: Never True Transportation Answer Date Recorded In the past 12 months, has l ack of transportation kept you from medical appts, meetings, work or from getting things needed for daily living? No 02/06/2023 Utilities Answer Date Recorded In the past 12 months, has t he electric, gas, oil or water company threatened to shut off services in your home? No 02/06/2023 Depression Answer Date Recorded Patient Health Questionnaire-2 [...] documented as of this encounter Care Teams Unhairer Relationship Specialty Start Date End Date Melisa Eisenberg MD [address] [place] [id number] PCP - General Family Medicine 04/21/18 documented as of this encounter
--- OUTSIDE RECORDS SUMMARY | 2024-06-23 16:19 | XMS_ITS | Encounter Summary ---
Author Organization [facility] Address [address] [place] [address] 7[address] [place] [address] Care Team Providers Care Field Operator Name Role Phone Melisa Eisenberg MD Primary Care Provider [phone] Encounter Details Date Type Department Care Team (Latest Contact Info) Description 07/26/2021 Abstract [facility] CONVERSIONS Dental, Provider, DDS Social History [...] on filedocumented in this encounter Care Teams Field Operator Relationship Specialty Start Date End Date Melisa Eisenberg MD [address] [place] [address] PCP - General Family Medicine 04/21/18 documented as of this encounter
--- OUTSIDE RECORDS SUMMARY | 2024-06-23 16:19 | XMS_ITS | Encounter Summary ---
Author Organization [employer] Address [address] [facility] 7t [place] [address] Care Team Providers Care Marine Pilot Name Role Phone Melisa Eisenberg MD Primary Care Provider [phone] Reason for Visit * Reason Onset Date Comments new script 05/10/2022 Encounter Details Date Type Department Care Team ([facility] Contact Info) Description 05/10/2022 Telephone [facility] MEDICINE [address] [place] [address] Melisa Eisenberg MD [address] [facility] [address] new script Social History Tobacco Use Types Packs/Day Years Used Date Smoking Tobacco: Never Assessed Sex and Gender Information Value Date Recorded Sex Assigned at Male 02/18/2022 10:20 AM EDT Legal Sex Male 10:20 AM EDT Gender Identity Male 02/18/2022 10:20 AM EDT Sexual Orientation Straight 02/18/2022 10 :20 AM EDT documented as of this encounter Miscellaneous Notes * Telephone Encounter - Gayatri Lugo RN - 05/10/2022 10:33 AM EST Consulted with Attila in [facility] pharmacy. Informed the only dosages available for Rx Trulicity are .75and 1.5. Doses 3 and 4.5 have been on back order intermittently. The only other GLP1 that's comparable dose is Ozempic which is also unavailable. Will forward to PCP to review. Please advise. Thank you. * Telephone Encounter - Janet Blas - 05/10/2022 10:19 AM EST Tc from pt calling requesting a new script of Trulicity. Pt stated [facility] has a back order ofTrulicity 3mg and 4.5mg. Pharmacy only has Trulicity 1.5mg. PCP Faina documented in this encounter Plan of Treatment Not on file documented as of this encounter Visit Diagnoses Not on filedocumented in this encounter Care Teams Marine Pilot Relationship Specialty Start Date End Date Melisa Eisenberg MD [address] [place] [id number] PCP - General Family Medicine 04/21/18 documented as of this encounter
--- OUTSIDE RECORDS SUMMARY | 2024-06-23 16:19 | XMS_ITS | Encounter Summary ---
Author Organization [employer] Address [address] [facility] 7t [place] [address] Care Team Providers Care Handle Bender Name Role Phone Melisa Eisenberg MD Primary Care Provider [phone] Encounter Details Date Type Department Care Team ([facility] st Contact Info) Description 05/19/2023 Abstract [facility] ADULT DENTAL [address] [place], [place] [id number] Martha Vaughan, DDS [address] [place] [address] Social History Tobacco Use Types Packs/Day Years [...] documented as of this encounter Care Teams Handle Bender Relationship Specialty Start Date End Date Melisa Eisenberg MD [address] [place] [id number] PCP - General Family Medicine 04/21/18 documented as of this encounter
--- NOTE | 2024-06-24 09:56 | HO.ANESPROP2 ---
Documented by User: Meera Arrington NP 06/24/24 09:57 HPI - Anesthesia Eval Consult details Narrative: 64yo M for Left Repair Hernia Inguinal with mesh s/p rotator cuff repair 12/2023 with GA-ETT 7 Anesthesia Pre-Procedure Meds Is the patient on any of the following meds?: GLP1/DPP4 and SGLT2 Inhib PMFSH Active Problems Active Problems: All Active Problems S/P right rotator cuff repair (Acute) Poorly controlled type 2 diabetes mellitus (Acute) Left inguinal hernia (Acute) Rotator cuff tear, right (Acute) Rotator cuff dysfunction (Acute) Diabetes mellitus (Acute) Internal derangement of right shoulder (Acute) Erectile dysfunction associated with type 2 diabetes mellitus (Acute) BPH w urinary obs/LUTS (Acute) Phimosis (Acute) Diabetes mellitus (Acute) Tubular adenoma (Acute) Helicobacter pylori (H. pylori) (Acute) Gastroesophageal reflux disease (Acute) Past Medical History Medical History Tubular adenoma Helicobacter pylori (H. pylori) Gastroesophageal reflux disease HTN (hypertension) Hypercholesteremia Diabetes mellitus Family History Family History Father Family history of high blood pressure Mother History of high blood pressure Family history of problems with anesthesia: No Surgical History Surgical History Hx of repair of right rotator cuff (12/2023) Hx of circumcision (~2020) History of esophagogastroduodenoscopy (EGD) History of right inguinal hernia repair History of colonoscopy History of Problems with Anesthesia: No Social History Social History Are you a primary manager care to a significant other at home: No Do you presently have visiting nurse or other home services: No Alcohol intake: current Alcohol intake frequency: does not drink Patient Tobacco Use Status: Never used Tobacco Use of substances other than those prescribed or required for medical reasons: No Have you been hit, kicked, punched, or otherwise hurt by someone within the past year? If so, by whom?: No Are you DNR?: No Advance Directives: No Advance Directives Information Provided: Yes Advance Directives on File: No Recently lost weight without trying: No Nutrition Risks: No Nutritional Risk Poor oral hygiene: No Meds Allergies Allergy/AdvReac Type Severity Reaction Status Date / Time No Known Allergies Allergy Verified 06/25/24 09:46 Home Medications ?Medication ?Instructions ?Recorded ?Confirmed ?Last Taken ?Type glyburide 5 mg tablet 5 mg PO DAILY 02/16/20 06/23/24 01/13/24 History lisinopril 10 mg tablet 10 mg PO DAILY 02/16/20 06/23/24 01/13/24 History albuterol sulfate 90 mcg/actuation 2 puff inhalation QID PRN 08/24/21 06/23/24 Unknown History aerosol inhaler (Ventolin HFA) Shortness Of Breath Or Wheezing blood-glucose meter (FreeStyle #1 ea 08/24/21 08/24/21 Unknown History Byron Lite kit) lancets 33 gauge (TRUEplus Lancets) #100 ea 08/24/21 08/24/21 Unknown History empagliflozin 25 mg tablet 1 tab QAM 06/06/22 06/23/24 06/20/24 History (Jardiance) dulaglutide 1.5 mg/0.5 mL 1.5 mg subcut QWEEK 01/12/24 06/23/24 06/18/24 History subcutaneous pen injector (Trulicity) metformin 1,000 mg tablet 1,000 mg PO BID 01/12/24 06/23/24 01/13/24 History pantoprazole 40 mg tablet,delayed 40 mg PO DAILY 05/03/24 06/23/24 Unknown History release Exam Height,Weight and Vital Signs: Height 5 ft 7 in Weight 68.946 kg Pertinent Lab Results Pertinent Lab Results: Laboratory Tests 11/05/23 Unknown WBC 6.4 Hgb 15.2 Hct 43.4 Plt Count 135 L Sodium 139 Potassium 3.9 Chloride 105 Carbon Dioxide 24 BUN 25 H Creatinine 0.76 Narrative Narrative: EKG 12/2023 Vent. Rate : 055 BPM Atrial Rate : 055 BPM P-R Int : 148 ms QRS Dur : 090 ms QT Int : 434 ms P-R-T Axes : 029 -16 014 degrees QTc Int : 415 ms Sinus bradycardia Otherwise normal ECG When compared with ECG of 30-NOV-2018 15:56, Premature ventricular complexes are no longer Present Assessment and Plan Assessment Anesthesia Assessment: Chart Reviewed Final Anesthetic Review Family History of Problems with Anesthesia: No History of Problems with Anesthesia: No Documented by User: Zoya Luciano MD 06/25/24 10:48 [facility] Past Medical History Medical History Tubular adenoma Helicobacter pylori (H. pylori) Gastroesophageal reflux disease HTN (hypertension) Hypercholesteremia Diabetes mellitus Family History Family History Father Family history of high blood pressure Mother History of high blood pressure Surgical History Surgical History Hx of repair of right rotator cuff (12/2023) Hx of circumcision (~2020) History of esophagogastroduodenoscopy (EGD) History of right inguinal hernia repair History of colonoscopy Social History Social History Are you a primary manager care to a significant other at home: No Do you presently have visiting nurse or other home services: No Alcohol intake: current Alcohol intake frequency: does not drink Patient Tobacco Use Status: Never used Tobacco Use of substances other than those prescribed or required for medical reasons: No Have you been hit, kicked, punched, or otherwise hurt by someone within the past year? If so, by whom?: No Are you DNR?: No Advance Directives: No Advance Directives Information Provided: Yes Advance Directives on File: No Recently lost weight without trying: No Nutrition Risks: No Nutritional Risk Poor oral hygiene: No Meds Allergies Allergy/AdvReac Type Severity Reaction Status Date / Time No Known Allergies Allergy Verified 06/25/24 09:46 Home Medications ?Medication ?Instructions ?Recorded ?Confirmed ?Last Taken ?Type glyburide 5 mg tablet 5 mg PO DAILY 02/16/20 06/23/24 01/13/24 History lisinopril 10 mg tablet 10 mg PO DAILY 02/16/20 06/23/24 01/13/24 History albuterol sulfate 90 mcg/actuation 2 puff inhalation QID PRN 08/24/21 06/23/24 Unknown History aerosol inhaler (Ventolin HFA) Shortness Of Breath Or Wheezing blood-glucose meter (FreeStyle #1 ea 08/24/21 08/24/21 Unknown History Byron Lite kit) lancets 33 gauge (TRUEplus Lancets) #100 ea 08/24/21 08/24/21 Unknown History empagliflozin 25 mg tablet 1 tab QAM 06/06/22 06/23/24 06/20/24 History (Jardiance) dulaglutide 1.5 mg/0.5 mL 1.5 mg subcut QWEEK 01/12/24 06/23/24 06/18/24 History subcutaneous pen injector (Trulicity) metformin 1,000 mg tablet 1,000 mg PO BID 01/12/24 06/23/24 01/13/24 History pantoprazole 40 mg tablet,delayed 40 mg PO DAILY 05/03/24 06/23/24 Unknown History release Exam Airway Mallampati Class: II TM Dist: >3cm Neck ROM: Full Heart: rrr Lungs: cta Assessment and Plan Assessment Anesthesia Assessment: Anesthesia Plan Discussed Final Anesthetic Review NPO: Yes ASA Class: III Final Preanesthetic Review: No Changes in Pt Med Stat, Meds/Allgs Chart Reviewed, Consent Obtained/Reviewed and Anes Risks/Benef Reviewed Patient Risk: Intermediate Procedure Risk: Low Anesthetic Plan Anesthetic Plan: GA Disposition: Standard PACU
[2024-06-25] VITALS (12 sets, daily range): BP systolic 123–154; BP diastolic 67–84; PULSE 61–87; RESP 12–18; TEMP 36.6–36.7; O2SAT 95–98; BMI 25.1
[2024-06-25] MEDS: Lactated Ringers 1,000 ML 100 ML IVCONT (09:50)
[2024-06-25 09:56] LABS: Glucose, Whole Blood 126 mg/dL (60-115)
--- NOTE | 2024-06-25 11:07 | MHC.SHP ---
Pre-Procedural Eval Section A - 24 Hr Update-Section A only Date of Service: 06/25/24 Section B - Complete if H&P > 30 days Chief Complaint: Unilateral inguinal hernia, without obstruction Details of Present Illness: Has a reducible left inguinal hernia Relevant Social History: None Present Medications: see Short Stay Collaborative assessment Medical History: Significant History (Diabetes, GERD) Allergies: Allergies Allergy/AdvReac Type Severity Reaction Status Date / Time No Known Allergies Allergy Verified 06/25/24 09:46 Review of Systems Sugical H&P ROS: Negative: Constitution, Cardiovascular, Respiratory and Gastrointestinal Exam Surgical H&P Exam: Normal: Heart and Normal: Lungs and Significant Findings: Abdomen (Left inguinal hernia reducible) Plan Diagnosis/Plan: Unchanged I have reviewed the history and physical and performed a pertinent physical examination on my patient. No changes have occurred unless specified. Time Spent With Patient Time: Total time managing care of this patient today ____ minutes.
--- NOTE | 2024-06-25 12:21 | P.OP_ITS ---
Operative Note Operative Note Date of Service: 06/25/24 Narrative: Preop diagnosis: Left inguinal hernia, reducible Postop diagnosis: Left inguinal hernia, reducible, direct Procedure: Repair of left inguinal hernia with mesh Surgeon: Ted Augustin MD assistant manager trainee: JAZ Zelaya The patient is a 64-year-old male with a reducible mass in the left groin consistent with a hernia. He understood the technique of the planned repair as well as the risks, benefits, and alternatives. He was brought to the operating room. He was placed supine under general anesthesia via laryngeal mask airway. The left groin was prepped and draped in the usual sterile fashion. A surgical time-out was done. The patient received cefazolin 2 g IV preoperatively I infiltrated the planned line of incision with lidocaine 1%. I made a short incision on the skin along an imaginary line from anterior iliac spine to the pubic ramus with a blade 15. This carried down with electrocautery through the full-thickness of the skin subcutaneous fat to expose the external oblique apon eurosis. I bluntly dissected the aponeurosis to define the external ring. I made an incision on the aponeurosis with a blade 15. This was extended inferomedially to connect with the external ring. The inguinal canal was therefore entered. I bluntly dissected the underside of the divided aponeurosis to create a pocket for the mesh. I then carefully dissected the spermatic cord and its contents with the index finger until was able to pass a [place] drain around this. The cord structures including the vas deferens was identified. The hernia sac was seen. I gently dissected this down to the defect and this was actually on the floor of the canal consistent with a direct hernia. I was able to reduce the hernia contents completely. This was all fat containing. I reinforced the defect with the Prolene plug. The plug was secured to the inguinal ligament laterally and the internal oblique medially and superiorly using Prolene 2 sutures through the inner leaves of the plug . I then reinforced the floor of the canal with a keyhole mesh. I passed the tails of the mesh around the cord at the level of the internal ring. I secured this tails together with Prolene 2-0 stitch. I flattened the mesh in the floor of the canal. I secured the mesh to the shelving edge of the inguinal meant laterally in the internal oblique superiorly and medially as well as the pubic ramus inferomedially. I observed for hemostasis. I irrigated. Once hemostasis was confirmed, I then closed the divided external oblique aponeurosis with a running Polysorb 2-0 stitch to re-create the external ring I reapposed the subcutaneous fat with Polysorb 3-0 sutures. Skin closure was achieved with Polysorb 4-0 subcuticular running stitch The area was infiltrated with Marcaine 0.5% for postop analgesia. Dressings were applied. The procedure was completed. The patient tolerated the procedure well. There were no immediate complications. Initial and final counts of sponges and instruments were correct. Estimated blood loss was less than 25 cc. The patient was extubated without difficulty and transferred to the recovery room with stable vital signs.
[2024-06-25] MEDS: fentaNYL citrate/PF 100 MCG/2 ML VIAL 25 MCG IVPUSH ×4 (12:53→13:28)
== END 2024-06-25 14:44 | disposition home or self-care (01) ==
PROVIDERS: PCP Pediatrics; Visit Provider Surgery
PROC: (CPT 49505; principal; 2024-06-25 12:10)
DX: K40.90 Unilateral inguinal hernia, without obstruction or gangrene, not specified as recurrent (principal); K21.9 Gastro-esophageal reflux disease without esophagitis; I10 Essential (primary) hypertension; E78.00 Pure hypercholesterolemia, unspecified; E11.9 Type 2 diabetes mellitus without complications; Z86.19 Personal history of other infectious and parasitic diseases; Z79.84 Long term (current) use of oral hypoglycemic drugs; Z79.85 Long-term (current) use of injectable non-insulin antidiabetic drugs; Z79.899 Other long term (current) drug therapy; Z98.890 Other specified postprocedural states
CPT/HCPCS: 49505; 82947; C1781; J0131; J0690; J2003; J2405; J2704; J2795; J3010

== ENCOUNTER → 2024-06-25 09:34 | Outpatient (BNV) | payer OTHER, SELFPAY | PROVIDERS: PCP Pediatrics; Visit Provider Surgery | DX: K40.90 Unilateral inguinal hernia, without obstruction or gangrene, not specified as recurrent (principal) | CPT/HCPCS: 49505 ==

== ENCOUNTER 2024-07-08 10:00 | Outpatient (AMB) | payer OTHER, SELFPAY ==
--- NOTE | 2024-07-08 10:03 | MHC.OFFVIS ---
Vital Signs 07/08/24 10:11 Height 5 ft 7 in Weight 164 lb BMI 25.7 Intake Visit Reasons: S/P LIH w/mesh Intake Note: This patient presents for post-op assessment status post repair left inguinal hernia repair with mesh. Pt c/o; reports no complaints. Breakfast Host Required: Yes Breakfast Host Language: Belarusian Accompanied by: Self / Same As Patient Allergies No Known Allergies Allergy (Verified 07/08/24 10:26) HPI HPI S/P LIH w/mesh: Details: He underwent repair of a left inguinal hernia with mesh last 06/25/2024. He tolerated the procedure well. He currently denies significant complaints. COUNTS INCLUDE 234 BEDS AT THE [facility] Medical History Tubular adenoma Helicobacter pylori (H. pylori) Gastroesophageal reflux disease HTN (hypertension) Hypercholesteremia Diabetes mellitus Surgical History History of left inguinal hernia repair (~06/25/24) Hx of repair of right rotator cuff (12/2023) Hx of circumcision (~2020) History of esophagogastroduodenoscopy (EGD) History of right inguinal hernia repair History of colonoscopy Family History Father Family history of high blood pressure Mother History of high blood pressure Social History Are you a primary morning caregiver to a significant other at home: No Do you presently have visiting nurse or other home services: No Alcohol intake: current Alcohol intake frequency: does not drink Patient Tobacco Use Status: Never used Tobacco Review of Systems Const Denies chills and Denies fever(s) Card Denies chest pain, Denies dyspnea and Denies dyspnea on exertion Resp Denies cough, Denies dyspnea and Denies dyspnea on exertion GI Denies hematochezia and Denies change in bowel habits Denies hematuria and Denies difficulty urinating Musc Denies back pain and Denies limited range of motion Neuro Denies focal weakness and Denies convulsions Psych Denies depression and Denies mood swings Physical Exam Vital Signs: BMI result Body Mass Index 25.7 Const General: comfortable and no acute distress Resp Effort & Inspection: normal respiratory effort GI Other: Left inguinal hernia repair site is well healed, not infected, repair intact Palpation (GI): Soft to palpation Assessment & Plan Assessment & Plan (1) Left inguinal hernia: Code(s): K40.90 - Unilateral inguinal hernia, without obstruction or gangrene, not specified as recurrent Category: Medical Plan: Status post repair with mesh. He is doing very well. The repair site is intact. The incision is well healed. I advised him to avoid lifting anything more than 20 lb for at least 2 more weeks. He can otherwise follow up on a p.r.n. basis. Coding Level of Care Code Global (26605) Diagnoses Left inguinal hernia K40.90
[2024-07-08 10:11] VITALS: BMI 25.7
--- OUTSIDE RECORDS SUMMARY | 2024-07-08 11:14 | XMS_ITS | Encounter Summary ---
Author Organization [employer] Address [address] [facility] 7t [place] [address] Care Team Providers Care Auto Job Estimator Name Role Phone Melisa Eisenberg MD Primary Care Provider [phone] Encounter Details Date Type Department Care Team ([facility] st Contact Info) Description 05/19/[address] [facility] ADULT DENTAL [address] [place], [place] [phone] Martha Vaughan, DDS [address] [place], [place] [phone] Social History Tobacco Use Types Packs/Day Years [...] documented as of this encounter Care Teams Auto Job Estimator Relationship Specialty Start Date End Date Melisa Eisenberg MD [address] [place] [address] PCP - General Family Medicine 04/21/18 documented as of this encounter
--- OUTSIDE RECORDS SUMMARY | 2024-07-08 11:14 | XMS_ITS | Encounter Summary ---
Author Organization [employer] [facility] Address [address] [facility] 7t [place] [address] Care Team Providers Care Cadd Manager Name Role Phone Melisa Eisenberg MD Primary Care Provider [phone] Encounter Details Date Type Department Care Team ([facility] st Contact Info) Description 02/27/2023 Abstract [facility] [address] [place] [address] Amira Mckeon Social History Tobacco Use Types [...] documented as of this encounter Care Teams Cadd Manager Relationship Specialty Start Date End Date Melisa Eisenberg MD [address] [place] [address] PCP - General Family Medicine 04/21/18 documented as of this encounter
--- OUTSIDE RECORDS SUMMARY | 2024-07-08 11:14 | XMS_ITS | Encounter Summary ---
Author Organization [facility] [facility] Address [address] [place] [address] 7t [place] [address] Care Team Providers Care Welfare Manager Name Role Phone Melisa Eisenberg MD Primary Care Provider [phone] Encounter Details Date Type Department Care Team (Latest Contact Info) Description 07/04/2020 Abstract [facility] CONVERSIONS Dental, Provider, DDS Social History Tobacco [...] on filedocumented in this encounter Care Teams Welfare Manager Relationship Specialty Start Date End Date Melisa Eisenberg MD [address] [place] [address] PCP - General Family Medicine 04/21/18 documented as of this encounter
--- OUTSIDE RECORDS SUMMARY | 2024-07-08 11:14 | XMS_ITS | Encounter Summary ---
Author Organization [employer] Address [address] [facility] 7t [place] [address] Care Team Providers Care Medical Office Administrator Name Role Phone Melisa Eisenberg MD Primary Care Provider [phone] Reason for Visit * Reason Onset Date Comments Call Back Request 08/22/2023 Encounter Details Date Type Department Care Team ([facility] Contact Info) Description 08/22/2023 Telephone [facility] [address] [place] [address] Melisa Eisenberg MD [address] [facility] [place] [address] Call Back Request Social History Tobacco Use [...] 08/25/2023 2:32 PM EDT Returned call to [facility] at [phone]. LVM to return call to nurses. * Telephone Encounter - Barbara Goodman - 08/22/2023 1:09 PM EDT Tc from Yoalnda at [facility] requesting a call back in regards Trulicity and Jardiance, Bette stated they usually stop those medications for surgery but they are requesting an OKAY from PCP. Lock Technician also ask Yolanda if pt will need a Pre Op visit but she stated is not needed. Please contact Yolanda at [phone] optio (surgical) documented in this encounter Plan of Treatment Not on file documented as of this encounter Visit Diagnoses Not on filedocumented in this encounter Additional Health Concerns Assessment Noted Time PHQ-9 Depression Total Score: 1 08/19/19 24 9:26 AM EDT documented as of this encounter Care Teams Medical Office Administrator Relationship Specialty Start Date End Date Melisa Eisenberg MD [address] [place] [address] PCP - General Family Medicine 04/21/18 documented as of this encounter
--- OUTSIDE RECORDS SUMMARY | 2024-07-08 11:14 | XMS_ITS | Encounter Summary ---
Author Organization [employer] Address [address] [facility] [address] [place] [address] Care Team Providers Care Plumber And Tinner Name Role Phone Melisa Eisenberg MD Primary Care Provider [phone] Reason for Visit * Reason Comments Med Refill Encounter Details Date Type Department Care Team ([facility] Contact Info) Description 06/10/2024 Refill [facility] [address] [place], [place] [phone] Melisa Eisenberg MD [address] [place] [address] Social History Tobacco Use Types Packs/Day Years [...] documented as of this encounter Care Teams Plumber And Tinner Relationship Specialty Start Date End Date Melisa Eisenberg MD [address] [place] [address] PCP - General Family Medicine 04/21/18 documented as of this encounter
--- OUTSIDE RECORDS SUMMARY | 2024-07-08 11:14 | XMS_ITS | Encounter Summary ---
Author Organization [employer] [facility] Address [address] [place] [address] 7t [place] [address] Care Team Providers Care Retail And Promotions Coordinator Name Role Phone Melisa Eisenberg MD Primary Care Provider [phone] Encounter Details Date Type Department Care Team (Latest Contact Info) Description 07/26/2021 Abstract [facility] CONVERSIONS Dental, Provider, DDS Social History Tobacco [...] on filedocumented in this encounter Care Teams Retail And Promotions Coordinator Relationship Specialty Start Date End Date Melisa Eisenberg MD [address] [place] [address] PCP - General Family Medicine 04/21/18 documented as of this encounter
--- OUTSIDE RECORDS SUMMARY | 2024-07-08 11:14 | XMS_ITS | Encounter Summary ---
Author Organization [employer] Address [address] [facility] 7t [place] [address] Care Team Providers Care Data Entry Assistant Name Role Phone Melisa Eisenberg MD Primary Care Provider [phone] Reason for Visit * Reason Comments Med Refill Encounter Details Date Type Department Care Team ([facility] Contact Info) Description 09/27/2023 Refill [facility] CHC MED & PEDS [address] [place], [place] [phone] Melisa Eisenberg MD 505 [place] [address] Type 2 diabetes mellitus without complication, without long-term current use of insulin ([facility]) Social History Tobacco Use Types Packs/Day Years [...] complication, without long-term current use of insulin ([facility]) documented in this encounter Additional Health Concerns Assessment Noted Time PHQ-9 Depression Total Score: 1 08/19/19 24 9:26 AM EDT documented as of this encounter Care Teams Data Entry Assistant Relationship Specialty Start Date End Date Melisa Eisenberg MD [address] [place] [address] PCP - General Family Medicine 04/21/18 documented as of this encounter
--- OUTSIDE RECORDS SUMMARY | 2024-07-08 11:14 | XMS_ITS | Encounter Summary ---
Author Organization [facility] Address [address] [place] [address] 7 [place] [address] Care Team Providers Care Equipment Sales Specialist Name Role Phone Melisa Eisenberg MD Primary Care Provider [phone] Reason for Visit * Reason Comments Med Refill Encounter Details Date Type Department Care Team ([facility] Contact Info) Description 11/27/2022 Refill [facility] CHC MED & PEDS 505 [place] [address] Melisa Eisenberg MD 505 [place] [address] Social History Tobacco Use Types Packs/Day Years [...] documented as of this encounter Care Teams Equipment Sales Specialist Relationship Specialty Start Date End Date Melisa Eisenberg MD [address] [place] [address] PCP - General Family Medicine 04/21/18 documented as of this encounter
--- OUTSIDE RECORDS SUMMARY | 2024-07-08 11:14 | XMS_ITS | Encounter Summary ---
Author Organization [employer] Address 75 [facility] 7t [place] [address] Care Team Providers Care Cemetery Keeper Name Role Phone Melisa Eisenberg MD Primary Care Provider [phone] Reason for Visit * Reason Onset Date Comments Hospital Follow-up 06/28/2024 Encounter Details Date Type Department Care Team ([facility] st Contact Info) Description 06/28/[address] [facility] MEDICINE [address] [place], [place] [phone] Melisa Eisenberg MD 505 [place] [address] Hospital Follow-up Social History Tobacco Use Types Packs/Day Years [...] encounter Miscellaneous Notes * Telephone Encounter - Melissa Mendoza RN - 06/28/2024 11:53 AM EDT TC to pt for f/u after surgery. oracle fusion middleware developer used. No answer. Voicemail left. * Telephone Encounter - [place] - 06/28/2024 8:15 AM EDT TC from pt requesting Follow up due to Having Surgery on Friday06/25/24. Pt was told to schedule Aptwith PCP after Surgery. Contact pt at [phone] documented in this encounter Plan of Treatment Not on file documented as of this encounter Visit Diagnoses Not on filedocumented in this encounter Additional Health Concerns Assessment Noted Time PHQ-9 Depression Total Score: 1 08/19/19 24 9:26 AM EDT documented as of this encounter Care Teams Cemetery Keeper Relationship Specialty Start Date End Date Melisa Eisenberg MD [address] [place] [address] PCP - General Family Medicine 04/21/18 documented as of this encounter
--- OUTSIDE RECORDS SUMMARY | 2024-07-08 11:14 | XMS_ITS | Encounter Summary ---
Author Organization [employer] [facility] Address [address] [place] [address] 7t [place] [address] Care Team Providers Care Supervisor Epoxy Fabrication Name Role Phone Melisa Eisenberg MD Primary Care Provider Reason for Visit * Reason Comments Med Refill Encounter Details Date Type Department Care Team ([facility] st Contact Info) Description 05/09/2022 Refill [facility] MEDICINE [address] [place], [place] [phone] Raudel Palafox MD 505 [place] [address] Social History Tobacco Use Types Packs/Day Years [...] on filedocumented in this encounter Care Teams Supervisor Epoxy Fabrication Relationship Specialty Start Date End Date Melisa Eisenberg MD 505 [place] [address] PCP - General Family Medicine 04/21/18 documented as of this encounter
--- OUTSIDE RECORDS SUMMARY | 2024-07-08 11:14 | XMS_ITS | Encounter Summary ---
Author Organization [employer] Address 75 [facility] 7t [place] [address] Care Team Providers Care Application Integration Architect Name Role Phone Melisa Eisenberg MD Primary Care Provider [phone] Reason for Visit * Reason Onset Date Comments new script 05/10/2022 Encounter Details Date Type Department Care Team ([facility] Contact Info) Description 05/10/2022 Telephone [facility] MEDICINE 230 [place] [address] Melisa Eisenberg MD [address] [facility] [place] [address] new script Social History Tobacco Use Types [...] 10:33 AM EST Consulted with Attila in [facility] pharmacy. Informed the only dosages available [...] on filedocumented in this encounter Care Teams Application Integration Architect Relationship Specialty Start Date End Date Melisa Eisenberg MD [address] [place] [address] PCP - General Family Medicine 04/21/18 documented as of this encounter
--- OUTSIDE RECORDS SUMMARY | 2024-07-08 11:14 | XMS_ITS | Encounter Summary ---
Author Organization [employer] [facility] Address [address] [place] [address] 7t [place] [address] Care Team Providers Care Marine Equipment Sales Engineer Name Role Phone Melisa Eisenberg MD Primary Care Provider [phone] Encounter Details Date Type Department Care Team (Latest Contact Info) Description 08/28/2018 Abstract [facility] CONVERSIONS Dental, Provider, DDS Social History Tobacco [...] filedocumented in this encounter Care Teams Marine Equipment Sales Engineer Relationship Specialty Start Date End Date Melisa Eisenberg MD 505 [facility] [place] [address] PCP - General Family Medicine 04/21/18 documented as of this encounter
--- OUTSIDE RECORDS SUMMARY | 2024-07-08 11:14 | XMS_ITS | Clinical Summary ---
Author Organization [employer] Address [address] [place] [address] 7t [place] [address] Care Team Providers Care Beef Selector Name Role Phone Melisa Eisenberg MD Primary Care Provider [phone] Allergies No known active allergies Medications omega-3 [...] complication, without long-term current use of insulin ([facility]) TAKE ONE TABLET DAILY 90 tablet [...] complication, without long-term current use of insulin ([facility]) TAKE ONE TABLET BY MOUTH EVERY [...] Encounters Date Type Department Care Team Description 06/28/2024 Telephone [facility] MEDICINE [address] [place] [address] Melisa Eisenberg MD Hospital Follow-up 06/25/2024 Orders Only GENERIC EXTERNAL DATA DEPARTMENT Provider, Generic External Data 06/10/2024 Refill [facility] CHC MED & PEDS [address] [place] [address] Melisa Eisenberg MD 05/10/2024 Refill [facility] CHC MED & PEDS [address] [place] [address] Melisa Eisenberg MD 04/28/2024 Telephone [facility] MED & PEDS [address] [place], [place] [phone] Melisa Eisenberg MD [facility] Paperwork & TB Needed 04/28/2024 Orders Only [facility] MED & PEDS 505 [facility] [place] [address] Melisa Eisenberg MD Encounter for health-related screening 04/22/2024 3:30 PM EST Office Visit [facility] MED & PEDS [address] [facility] [place] [address] Marissa Farfan MD Left inguinal hernia (Primary Dx); Diabetes mellitus without complication ([facility]) 04/22/2024 Travel 04/20/2024 Telephone [facility] MEDICINE [address] [place], [place] [phone] Melisa Eisenberg MD 04/16/2024 Telephone [facility] MEDICINE [address] [place], [place] [phone] Melisa Eisenberg MD Referral from Last 3 [...] FOBT 1960 HIV Screening 1960 Sigmoidoscopy 1960 Hepatitis C Screening 02/09/1978 Pneumococcal Vaccine: 50+ Years (2 of 2 - PCV) 10/10/2012 10/11/2011, 03/26/2006 RSV Patients and Patients Aged 60 years or older (1 - Risk 60-74 years 1-dose series) 2020 Dental Oral Exam 01/11/2024 07/10/2023, , 11/08/2021, Additional history exists Dental Prophylaxis 01/11/2024 07/10/2023, 0 12/10/2022, 07/26/2021, Additional history exists Alcohol/Substance Use Screening 08/18/2024 08/19/2023 Depression Screening 08/18/2024 08/19/2023, 08/19/19 24 SDOH Screening 08/18/2024 08/19/2023 Dental X-Ray: Bitewings 02/04/2025 02/04/20 24, 07/10/2023, 12/10/2022, Additional history exists Tobacco Screening 04/22/2025 04/22/2024 Colonoscopy 06/25/2027 06/24/2022, 06/21/2022 Colorectal Cancer Screening 06/25/2027 Lipid Panel 11/04/2028 11/05/2023, 10/19, 07/26/2022, Additional history exists DTaP/Tdap/Td Vaccines (2 - Td or Tdap) [...] Procedure Name Priority Date/Time Associated Diagnosis Comments GLUCOSE, WHOLE BLOOD Routine 06/25/2024 9:53 AM EST T-SPOT(R).TB Routine 04/28/2024 1:01 PM EST Encounter for health-related screening POCT GLUCOSE Routine 04/22/2024 4:20 PM EST Diabetes mellitus without complication (CMS/HCC) POCT GLYCATED HEMOGLOBIN, TOTAL Routine 04/22/2024 4:19 PM EST Diabetes mellitus without complication (CMS/HCC) BITEWING - SINGLE RADIOGRAPHIC IMAGE Routine 02/04/2024 3:00 PM EDT LIPID PANEL, STANDARD Routine 11/05/2023 12:00 AM EDT Benign essential hypertension Diabetes mellitus without complication (CMS/HCC) Pure hypercholesterolemia Routine medical exam Full PROPHYLAXIS - ADULT Routine 07/10/2023 9:00 AM EDT PERIODIC ORAL EVALUATION - ESTABLISHED PATIENT Routine 07/10/2023 9:00 AM EDT COLONOSCOPY Routine 06/24/2022 from Last 3 Months or Most Recently Relevant to Health Maintenance Results * (ABNORMAL) Glucose, Whole Blood (06/25/2024 9:53 AM EST) Glucose, Whole Blood 126(H) 60 - 115 mg/dL [facility] Comment:METER #: [id number] 06/25/2024 9:53 AM EST 06/25/2024 9:56 AM EST us Generic External Data Provider LAB BLOOD ORDERAB LES Final Result Performing Organization Address [facility] Co de Phone Number [facility] [address] [place] [address] [phone] * T-SPOT??.TB (04/28/2024 1:01 PM EST) [facility] T Spot TB Negative Negative [facility] Comment:A negative test resu lt [...] as aquantitative test. TS PANEL A 0 [facility] TS PANEL B 0 [facility] Negative Control Passed [facility] Positive Control Passed [facility] Comment:For additional infor julio césar, please refer tohttp://education.[employer]/faq/HFY753(This link is being provided for informational/educational purposes only.)THIS TEST WAS PERFORMED AT:[employer] [id number] [place] [address]EOSGOJLMARIELA BENEDICT MD,PHD 04/28/2024 1:01 PM EST 04/28/2024 2:17 PM EST us Melisa Eisenberg MD LAB BLOOD ORDERABLES Final Re sult [facility] [address] [place] [address] [phone] * (ABNORMAL) POCT Glucose (04/22/2024 4:20 PM EST) Glucose Blood, POC 73(A) 60 - 200 mg/dL QC Media Lot # [id number] Lot# Expiration Date [id number] Blood Capillary blood specimen / Unknown 04/22/2024 4:20 PM EST Marissa Farfan MD POINT OF CARE TEST ENTER/ED IT ORDERABLES Final Result * (ABNORMAL) POCT HGB A1C (04/22/2024 4:19 PM EST) Hemoglobin A1C 7.6(A) 4.0 - 6.0 % QC Media Lot # [id number] Lot# Expiration Date [id number] Blood 04/22/2024 4:19 PM EST us Marissa Farfan MD POINT OF CARE TEST ENTER/ED IT ORDERABLES Final Result * Lipid Panel, Standard (11/05/2023 12:00 AM EDT) Triglycerides 106 <150 mg/dL [facility] Comment:Desirable Triglyceri de: less than 150 mg/dLBorderline High Triglyceride 150-199 mg/dLHigh Triglyceride: 200-499 mg/dLVery High Triglyceride: greater than or equal to 5OO mg/dL Cholesterol 102 <200 mg/dL [facility] Comment:Desirable Cholestero l: less than 200 mg/dLBorderline High Cholesterol: 200-239 mg/dLHigh Cholesterol: greater than 239 mg/dL LDL Cholesterol Calculated 36 <100 mg/dL [facility] Comment:Desirable LDL: less than 100 mg/dLNear Optimal/Above Optimal LDL: 110- 129 mg/dLBorderline High LDL: 130-159 mg/dLHigh LDL: 160-189 mg/dLVery High LDL: greater than or equal to 190 mg/dL HDL Cholesterol 45 >40 mg/dL [facility] Comment:Desirable HDL: great er than 40 mg/dL Note: This HDL assay may give artificially low results in patients with liver disease. Blood Venous blood specimen / Unknown 11/05/2023 11/05/2023 us Melisa Eisenberg MD LAB BLOOD ORDERABLES Final Re sult [facility] [address] [place] [address] [phone] * Colonoscopy (06/24/2022) Anatomical Region Laterality Modality Endoscopy Narrative 06/24/2022 Needs repeat in 5 years us Melisa Eisenberg MD ENDOSCOPY PROCEDURE ORDERABLE S Final Result from Last 3 Months or Most Recently Relevant to Health Maintenance Insurance [facility] DENTAL - HSN PARTIAL (MEDICAID) * Guarantor: Ania Kenneth Account Type Relation to Patient Date of Phone Billing Address Personal/Family Self [address] [facility] [address] [place] Care Teams Beef Selector Relationship Specialty Start Date End Date Melisa Eisenberg MD [address] [place] [address] [place] [address] PCP - General Family Medicine 04/21/18
--- OUTSIDE RECORDS SUMMARY | 2024-07-08 11:14 | XMS_ITS | Encounter Summary ---
Author Organization [employer] [facility] Address [address] [place] [address] 7t [place] [address] Care Team Providers Care Zoology Teacher Name Role Phone Melisa Eisenberg MD Primary Care Provider [phone] Encounter Details Date Type Department Care Team ([facility] Contact Info) Description 06/25/2024 Orders Only GENERIC EXTERNAL DATA DEPARTMENT Provider, Generic External Data Social History Tobacco Use Types Packs/Day Years [...] on file documented as of this encounter Procedures Procedure Name Priority Date/Time Associated Diagnosis Comments GLUCOSE, WHOLE BLOOD Routine 06/25/2024 9:53 AM EST documented in this encounter Results * (ABNORMAL) Glucose, Whole Blood (06/25/2024 9:53 AM EST) Glucose, Whole Blood 126(H) 60 - 115 mg/dL [facility] Comment:METER #: [id number] 06/25/2024 9:53 AM EST 06/25/2024 9:56 AM EST us Generic External Data Provider LAB BLOOD ORDERAB LES Final Result [facility] [address] [place] [address] [phone] documented in this encounter Visit Diagnoses Not on filedocumented in this encounter Additional Health Concerns Assessment Noted Time PHQ-9 Depression Total Score: 1 08/19/19 24 9:26 AM EDT documented as of this encounter Care Teams Zoology Teacher Relationship Specialty Start Date End Date Melisa Eisenberg MD [address] [place] [address] PCP - General Family Medicine 04/21/18 documented as of this encounter
== END 2024-07-08 10:35 | disposition home or self-care (01) ==
LOC: HO.HGS 10:01
PROVIDERS: PCP Pediatrics; Visit Provider Surgery
DX: K40.90 Unilateral inguinal hernia, without obstruction or gangrene, not specified as recurrent (principal)
CPT/HCPCS: 99024

== ENCOUNTER → 2024-07-08 10:00 | Outpatient (BNVA) | payer OTHER, SELFPAY | PROVIDERS: PCP Pediatrics; Visit Provider Surgery | DX: Z48.815 Encounter for surgical aftercare following surgery on the digestive system (principal); Z98.890 Other specified postprocedural states | CPT/HCPCS: 99212 ==

== ENCOUNTER 2024-07-08 10:24 | Outpatient (AMB) | payer OTHER, SELFPAY ==
--- NOTE | 2024-07-08 10:25 | A.OFFVIS_ITS ---
Intake Visit Reasons: OV RT RTC 01/14/24 NE Intake Note: Kenneth is a 63 year old right hand dominant male who presents today for a follow up of his right shoulder about 6 months s/p RT RTC 01/14/24 NE. At his last visit he was advised to continue no heavy lifting. Patient reports that he is having increased pain in the posterior aspect of the shoulder, that he did not have prior to surgery. He continues to have pain with daily activity that worsens at night and limited ROM. Allergies No Known Allergies Allergy (Verified 07/08/24 10:26) HPI HPI OV RT RTC 01/14/24 NE: Details: Kenneth is a 63 year old right hand dominant male who presents today for a follow up of his right shoulder about 6 months s/p RT RTC 01/14/24 NE. At his last visit he was advised to continue no heavy lifting. Patient reports that he is having increased pain in the posterior aspect of the shoulder. He continues to have pain with daily activity that worsens at night and limited ROM. He feels like his motion should be better and he is asking about a repeat MRI. [facility] Medical History Tubular adenoma Helicobacter pylori (H. pylori) Gastroesophageal reflux disease HTN (hypertension) Hypercholesteremia Diabetes mellitus Surgical History History of left inguinal hernia repair (~06/25/24) Hx of repair of right rotator cuff (12/2023) Hx of circumcision (~2020) History of esophagogastroduodenoscopy (EGD) History of right inguinal hernia repair History of colonoscopy Family History Father Family history of high blood pressure Mother History of high blood pressure Social History Are you a primary care center manager to a significant other at home: No Do you presently have visiting nurse or other home services: No Alcohol intake: current Alcohol intake frequency: does not drink Patient Tobacco Use Status: Never used Tobacco Physical Exam Extrem Other: /110/hp 4+/5 EC- stable Assessment & Plan Assessment & Plan (1) S/P right rotator cuff repair: Code(s): Z98.890 - Other specified postprocedural states Category: Surgical Plan: s/p RTC tear with mild stiffness. He is engaging his scapulothoracic for all motion. Needs formal PT to re educate about GH vs Scapulothoracic motion. Otherwise doing well. f/u 3 mo Orders: Orders PT Evaluation and Treatment 07/08/24 Z98.890 - Other specified postprocedural states Coding Level of Care Code Est Pt Level 3 (31128) Diagnoses S/P right rotator cuff repair Z98.890
== END 2024-07-08 11:07 | disposition home or self-care (01) ==
LOC: HO.HOS 10:24
PROVIDERS: PCP Pediatrics; Visit Provider Orthopaedic Surgery
DX: Z47.89 Encounter for other orthopedic aftercare (principal); M75.101 Unspecified rotator cuff tear or rupture of right shoulder, not specified as traumatic
CPT/HCPCS: 99213

== ENCOUNTER 2024-09-27 10:56 | Outpatient (REF) | payer OTHER, SELFPAY ==
--- OUTSIDE RECORDS SUMMARY | 2024-09-27 12:27 | XMS_ITS | Encounter Summary ---
Author Organization [employer] Address [address] [facility] [address] 7t [place] [address] Care Team Providers Care Senior Financial Reporting Accountant Name Role Phone Melisa Eisenberg MD Primary Care Provider [phone] Encounter Details Date Type Department Care Team ([facility] Contact Info) Description 02/27/2023 Abstract [facility] MEDICINE [address] [place] [address] Amira Mckeon Social History Tobacco Use Types [...] as of this encounter Plan of Treatment Upcoming Encounters Date Type Department Care Team (Late st Contact Info) Description 12/21/2024 9:45 AM EDT Office Visit [facility] MED & PEDS [address] [place] [address] Melisa Eisenberg MD [address] [place] [address] documented as of this encounter Visit Diagnoses Not on filedocumented in this encounter Additional Health Concerns Assessment Noted Time PHQ-9 Depression Total Score: 0 07/27/19 23 10:21 AM EDT documented as of this encounter Care Teams Senior Financial Reporting Accountant Relationship Specialty Start Date End Date Melisa Eisenberg MD [address] [place] [address] PCP - General Family Medicine 04/21/18 documented as of this encounter
[2024-09-27 14:24] LABS: MANUAL DIFF FLAG NO
[2024-09-27 14:30] LABS: Basophils Percent Auto 0.6 % (0-2); Eosinophils Absolute Auto 0.1 X10*3/uL (0.0-0.4); Eosinophils Percent Auto 1.9 % (0-4); Hematocrit 43.8 % (42.0-52.0); Imm Gran Abs Auto 0.01 X10*3/uL (0.00-0.03); Imm Gran Pct Auto 0.2 % (0.0-0.4); Lymphocytes Absolute Auto 2.2 X10*3/uL (1.2-4.9); Lymphocytes Percent Auto 40.6 % (20-40); Mean Corpuscular HGB Conc 34.2 g/dl (31.0-36.0); Mean Corpuscular Hemoglobin 31.3 pg (27.0-33.0); Mean Corpuscular Volume 91.4 fL (80.0-98.0); Mean Platelet Volume 11.2 fL (9.4-12.4); Monocytes Absolute Auto 0.5 X10*3/uL (0.1-1.2); Monocytes Percent Auto 8.4 % (2-11); Neutrophils Absolute Auto 2.6 x10*3/uL (2.0-8.3); Neutrophils Percent Auto 48.3 % (45-73); Platelet Count 138 X10*3/uL (160-400); Red Blood Count 4.79 X10*6/uL (4.60-5.80); Red Cell Distribution Width 12.1 % (11.0-16.0); White Blood Count 5.3 X10*3/uL (4.8-10.8)
[2024-09-27 14:51] LABS: Creatinine Urine 99.47 mg/dL; Microalbum/Creatinine Ratio Ur 23.1 ug/mg cr (<30)
[2024-09-27 15:02] LABS: Prostate Specific Antigen Scr 0.39 ng/mL (<0.05-4.0)
[2024-09-27 15:04] LABS: Alanine Aminotransferase 29 U/L (0-40); Albumin Level 4.6 g/dL (3.5-5.0); Alkaline Phosphatase 53 U/L (39-117); Anion Gap 9 (12-20); Aspartate Amino Transferase 30 U/L (5-37); Bilirubin Total 0.6 mg/dL (0.0-1.0); Blood Urea Nitrogen 22 mg/dL (9-16); Calcium 8.8 mg/dL (8.4-10.2); Carbon Dioxide 28 mmol/L (22-29); Chloride 106 mmol/L (96-108); Cholesterol 171 mg/dL (<200); Estimated Glomerular Filt Rate > 60; Glucose Random 83 mg/dL (60-115); HDL Cholesterol 43 mg/dL (>40); LDL Cholesterol Calculated 104 mg/dL (<100); Potassium 3.7 mmol/L (3.3-5.1); Sodium 139 mmol/L (135-145); TSH reflex Free T4 0.72 uIU/mL (0.32-4.0); Total Protein 7.1 g/dL (6.5-8.0); Triglycerides 121 mg/dL (<150)
== END 2024-09-27 10:57 | disposition home or self-care (01) ==
LOC: HO.CHCLDS 10:56
PROVIDERS: Visit Provider Pediatrics
DX: Z00.00 Encounter for general adult medical examination without abnormal findings (principal); E11.9 Type 2 diabetes mellitus without complications; Z71.82 Exercise counseling; Z71.3 Dietary counseling and surveillance; I10 Essential (primary) hypertension
CPT/HCPCS: 36415; 80053; 80061; 82043; 82570; 84153; 84443; 85025

== ENCOUNTER 2024-10-20 10:00 | Outpatient (RCR) | payer OTHER, SELFPAY ==
--- NOTE | 2024-08-17 08:45 | MHC.PT.EP ---
[facility] [place] Office [place] Office [place] Office [address] Elicia Belcher [address] [phone] F: [phone] F: [phone] F: [phone] F: [phone] Physical Therapy Plan of Care Date of Evaluation: 08/17/24 Date of Surgery: 01/14/24 Diagnosis: This is a 64 yo male presenting to skilled PT with a script for s/p R RTC repair. Assessment: This is a 64 yo male presenting to skilled PT with a script for s/p R RTC repair. Patient's repair was done by Dr. Freeman on 01/14/24. Patient had come to 19 visits of PT after this surgery in this facility. He was still limited in his ROM and strength but had improved since eval. He was still limited by pain however he went to [place] for over a month and was DC'd from our care after now being at the facility for 30 days. He had a good HEP to continue on his own and it was recommended he talk with his MD about his continuation of pain. He returns today with continuation of pain. He saw Dr. Freeman in June with complaints of increasing pain in the posterior aspect of the shoulder, that he did not have prior to surgery. He also reported that he continued to have pain with daily activity that worsens at night and limited ROM. Per documentation he also feels like his motion should be better and he was asking about a repeat MRI. He is to do more PT and follow up with ortho on October 08. He is here today reporting pain is okay but limited in ROM and wants to improve function. Assessment reveals pain that ranges from up to a 3/10 at the worst. Patient demos decreased R shoulder and cervical ROM, strength of B shoulder's and scapular stabilizers, denies TTP but demos very forward GHJ posture with forward head and increased thoracic kyphosis. Based on functional limitations, impaired QOL and pain tolerance patient is a good candidate for skilled PT 2x/wk for 5wks. Frequency and Duration: The patient will be seen 2x/wk for 5wks Short Term Goals: (In 2 weeks) Demo I with new HEP Improve shoulder AROM by at least 20 degs in all directions Demo proper scapular recruitment with appropriate shoulder strengthening exercises Alf Goals: (in 5 wks) Improve shoulder nonpainful AROM to almost near equal B Demo at least 2 grades improvement in MMT for shoulder Improve SPADI by at least 10 points Improve overall functional QOL by at least 50% Treatment Plan: Modalities to reduce pain, spasms and effusion. Manual therapy to restore motion and function. Therapeutic exercise to improve strength and flexibility. Neuromuscular re-education for posture and balance. Therapeutic activities to return to functional activities of daily living. Electronically signed by: Christen Alvarez PT Please sign and return to therapist. Thank you for your referral.
--- NOTE | 2024-10-20 11:33 | MHC.PT.DC ---
[facility] [place] Office [place] Office [place] Office [address] Elicia Belcher [address] [phone] F: [phone] F: [phone] F: [phone] F: [phone] Physical Therapy Discharge Report Diagnosis: This is a 64 yo male presenting to skilled PT with a script for s/p R RTC repair. Date of Surgery: 01/14/24 Date of Evaluation: 08/17/24 Date of Discharge: 10/20/24 Treatments to Date: 11 Cancellations to Date: 0 No Shows to Date: 0 Discharge Status: Achieved Goals Improved Function Independent with HEP Recommend MD Follow-up Discharge Summary: 10/20: Patient has come to many months of PT and his insurance has maxed out. At this time he has plateaued in progress as well. He continues to be tight in ROM, ? frozen shoulder. He would benefit from a follow up with the surgeon which is scheduled for October. Educated to continue HEP with emphasis on importance of stretching. DC to HEP. Electronically signed by: Christen Alvarez PT Please sign and return to therapist. Thank you for your referral.
== END 2024-10-20 11:33 | disposition home or self-care (01) ==
LOC: HO.PTCHIC 10:00
PROVIDERS: PCP Pediatrics; Visit Provider Orthopaedic Surgery
DX: Z98.890 Other specified postprocedural states (principal)
CPT/HCPCS: 97110; 97140; 97161

== ENCOUNTER 2024-11-11 09:32 | Outpatient (AMB) | payer OTHER, SELFPAY ==
--- NOTE | 2024-11-11 09:36 | A.OFFVIS_ITS ---
Vital Signs 11/11/24 09:37 Height 5 ft 7 in Weight 164 lb BMI 25.7 Intake Visit Reasons: OV-RT RTC 01/14/24 NE Intake Note: Kenneth is a 63 year old right hand dominant male who presents today for a follow up of his right shoulder about 10 months s/p RT RTC 01/14/24 NE. Allergies No Known Allergies Allergy (Verified 11/11/24 09:39) HPI HPI OV-RT RTC 01/14/24 NE: Details: Kenneth is a 63 year old right hand dominant male who presents today for a follow up of his right shoulder about 10 months s/p RT RTC 01/14/24 NE. Patient reports he is doing well, however is has occasional pinch with moption but overall he feels well and has no complaints. PFSH Medical History Tubular adenoma Helicobacter pylori (H. pylori) Gastroesophageal reflux disease HTN (hypertension) Hypercholesteremia Diabetes mellitus Surgical History History of left inguinal hernia repair (~06/25/24) Hx of repair of right rotator cuff (12/2023) Hx of circumcision (~2020) History of esophagogastroduodenoscopy (EGD) History of right inguinal hernia repair History of colonoscopy Family History Father Family history of high blood pressure Mother History of high blood pressure Social History Are you a primary health and social care teacher to a significant other at home: No Do you presently have visiting nurse or other home services: No Alcohol intake: current Alcohol intake frequency: does not drink Patient Tobacco Use Status: Never used Tobacco Physical Exam Vital Signs: BMI result Body Mass Index 25.7 Extrem Other: portals c/d/i smooth arc of motion 45/90/140 L5 Neg EC Assessment & Plan Assessment & Plan (1) S/P right rotator cuff repair: Code(s): Z98.890 - Other specified postprocedural states Category: Surgical Plan: s/p RTC repair doing well. No intervention warranted. May return to activity as tolerated. No restrictions Coding Level of Care Code Est Pt Level 3 (00855) Diagnoses S/P right rotator cuff repair Z98.890
[2024-11-11 09:37] VITALS: BMI 25.7
--- OUTSIDE RECORDS SUMMARY | 2024-11-11 10:11 | XMS_ITS | Encounter Summary ---
Author Organization [employer] Address [address] [facility] [address] 7t [place] [address] Care Team Providers Care Whiskey Filterer Name Role Phone Melisa Eisenberg MD Primary Care Provider [phone] Encounter Details Date Type Department Care Team ([facility] Contact Info) Description 02/27/2023 Abstract [facility] MEDICINE [address] [place] [address] Amira Mckeon Social History Tobacco Use Types [...] Description 12/21/2024 9:45 AM EDT Office Visit [facility] MED & PEDS [address] [place] [address] Melisa Eisenberg MD [address] [place] [address] documented as of this encounter Visit Diagnoses Not on filedocumented in this encounter Additional Health Concerns Assessment Noted Time PHQ-9 Depression Total Score: 0 07/27/19 23 10:21 AM EDT documented as of this encounter Care Teams Whiskey Filterer Relationship Specialty Start Date End Date Melisa Eisenberg MD [address] [place] [address] PCP - General Family Medicine 04/21/18 documented as of this encounter
== END 2024-11-11 09:52 | disposition home or self-care (01) ==
LOC: HO.HOS 09:32
PROVIDERS: PCP Pediatrics; Visit Provider Orthopaedic Surgery
DX: Z47.89 Encounter for other orthopedic aftercare (principal); M75.101 Unspecified rotator cuff tear or rupture of right shoulder, not specified as traumatic
CPT/HCPCS: 99213

== ENCOUNTER → 2024-11-11 09:32 | Outpatient (BNVA) | payer OTHER, SELFPAY | PROVIDERS: PCP Pediatrics; Visit Provider Orthopaedic Surgery | DX: M75.101 Unspecified rotator cuff tear or rupture of right shoulder, not specified as traumatic (principal); Z98.890 Other specified postprocedural states | CPT/HCPCS: 99212 ==